=== PATIENT | male | born 1940 | race Caucasian/White ===

== ENCOUNTER 2019-06-10 09:49 | Emergency (ER) | payer MEDICARE, OTHER, BC ==
--- NOTE | 2019-06-10 11:46 | CT ---
Head CT Technique: Multiple axial sections through the brain were obtained. Intravenous contrast was not utilized. Comparison: No prior intracranial imaging. Findings: Ventricles along with basal cisterns and sulci over the convexities are within normal limits for the patient's age. Diminished density is noted within portions of the periventricular white matter compatible with small vessel ischemic demyelination change. No other abnormal parenchymal densities are seen. No evidence of intracranial hemorrhage. No midline shift or mass effect is seen. Bone window settings were reviewed which shows no acute calvarial abnormality. Mastoid sinuses are clear. Visualized paranasal sinuses are clear. Impression: 1. Mild senescent change as noted above. 2. No acute intracranial abnormality is appreciated. Diagnostic code #2 This report was dictated in [place] Standard Time
--- NOTE | 2019-06-10 12:41 | EDM.PDOC ---
ED HPI GENERAL MEDICAL PROBLEM - General Chief Complaint: General Stated Complaint: DOUBLE VISION X 4 DAYS Time Seen by Provider: 06/10/19 10:59 Source of Information: Reports: Patient History Limitations: Reports: No Limitations - History of Present Illness INITIAL COMMENTS - FREE TEXT/NARRATIVE: The patient presents with double vision he had this weekend. This started on Monday and then Monday. It was not all the time. He got it when driving on Monday. He has no headache, numbness, weakness, blurred vision, chest pain, shortness of breath, nausea or vomiting. Onset: Gradual Duration: Day(s): Severity: Mild Improves with: Reports: None Worsens with: Reports: None Associated Symptoms: Reports: No Other Symptoms - Related Data Allergies Allergy/AdvReac Type Severity Reaction Status Date / Time No Known Allergies Allergy Verified 06/10/19 10:20 Home Meds: Home Meds Aspirin [Ecotrin EC] 81 mg PO DAILY 06/10/19 [History] Cinnamon Bark [Cinnamon] 1,000 mg PO DAILY 06/10/19 [History] Doxazosin Mesylate [Cardura XL] 4 mg PO DAILY 06/10/19 [History] Lisinopril [Zestril] 40 mg PO DAILY 06/10/19 [History] Losartan [Cozaar] 50 mg PO DAILY 06/10/19 [History] Multivitamin with Minerals [Hair, Skin and Nails] 1 tab PO DAILY 06/10/19 [ History] Oxybutynin 5 mg PO DAILY 06/10/19 [History] Potassium Chloride [K-Tab] 10 meq PO BID 06/10/19 [History] Simvastatin 40 mg PO BEDTIME 06/10/19 [History] amLODIPine [Norvasc] 10 mg PO DAILY 06/10/19 [History] glyBURIDE [Glyburide] 2.5 mg PO BEDTIME 06/10/19 [History] hydroCHLOROthiazide [Hydrochlorothiazide] 25 mg PO DAILY 06/10/19 [History] metFORMIN [Glucophage] 500 mg PO BIDMEALS 06/10/19 [History] Past Medical History HEENT History: Reports: Impaired Vision Cardiovascular History: Reports: Hypertension Oncologic (Cancer) History: Reports: Other (See Below) Other Oncologic History: cancer of the tounge - Past Surgical History HEENT Surgical History: Reports: Cataract Surgery, Tonsillectomy GI Surgical History: Reports: Appendectomy Social & Family History - Tobacco Use Smoking Status *Q: Never Smoker - Caffeine Use Caffeine Use: Reports: None - Recreational Drug Use Recreational Drug Use: No ED ROS GENERAL - Review of Systems Review Of Systems: See Below Constitutional: Reports: No Symptoms HEENT: Reports: Other (Double vision) Respiratory: Reports: No Symptoms Cardiovascular: Reports: No Symptoms Endocrine: Reports: No Symptoms GI/Abdominal: Reports: No Symptoms : Reports: No Symptoms Musculoskeletal: Reports: No Symptoms ED EXAM, GENERAL - Physical Exam Exam: See Below Exam Limited By: No Limitations General Appearance: Alert, No Apparent Distress Eye Exam: Bilateral Eye: EOMI, PERRL Ears: Normal External Exam Nose: Normal Inspection Head: Atraumatic, Normocephalic Neck: Normal Inspection Respiratory/Chest: No Respiratory Distress, Lungs Clear, Normal Breath Sounds Cardiovascular: Regular Rate, Rhythm, No Edema, No Murmur GI/Abdominal: Soft, Non-Tender, No Organomegaly, No Mass Back Exam: Normal Inspection EKG INTERPRETATION EKG Date: 06/10/19 Time: 11:15 Rhythm: Other (sinus bradycardia) Rate (Beats/Min): 55 Saline: Normal P-Wave: Present QRS: Normal ST-T: Normal QT: Normal Course - Vital Signs Last Recorded V/S: Last Vital Signs Temp 97.6 F 06/10/19 09:56 Pulse 61 06/10/19 09:56 Resp 18 06/10/19 09:56 BP 160/81 H 06/10/19 09:56 Pulse Ox 94 L 06/10/19 09:56 - Orders/Labs/Meds Orders: Active Orders 24 hr Category Date Time Status Cardiac Monitoring [RC] . DIRECTED Care 06/10/19 11:10 Active EKG Documentation Completion [RC] STAT Care 06/10/19 11:11 Active Labs: Laboratory Tests 06/10/19 06/10/19 Range/Units 11:43 11:43 WBC 8.02 (4.23-9.07) K/mm3 RBC 4.87 (4.63-6.08) M/mm3 Hgb 14.3 (13.7-17.5) gm/dl Hct 42.1 (40.1-51.0) % MCV 86.4 (79.0-92.2) fl MCH 29.4 (25.7-32.2) pg MCHC 34.0 (32.2-35.5) g/dl RDW Std Deviation 41.1 (35.1-43.9) fL Plt Count 206 (163-337) K/mm3 MPV 10.3 (9.4-12.3) fl Neut % (Auto) 64.9 (34.0-67.9) % Lymph % (Auto) 19.3 L (21.8-53.1) % [place] % (Auto) 7.6 (5.3-12.2) % Eos % (Auto) 7.1 H (0.8-7.0) Baso % (Auto) 1.0 (0.1-1.2) % Neut # (Auto) 5.20 (1.78-5.38) K/mm3 Lymph # (Auto) 1.55 (1.32-3.57) K/mm3 [place] # (Auto) 0.61 (0.30-0.82) K/mm3 Eos # (Auto) 0.57 H (0.04-0.54) K/mm3 Baso # (Auto) 0.08 (0.01-0.08) K/mm3 Sodium 141 (136-145) mEq/L Potassium 3.4 L (3.5-5.1) mEq/L Chloride 103 (98-107) mEq/L Carbon Dioxide 27 (21-32) mEq/L Anion Gap 14.4 (5-15) BUN 18 (7-18) mg/dL Creatinine 1.1 (0.7-1.3) mg/dL Est Cr Clr Drug Dosing 49.14 mL/min Estimated GFR (MDRD) > 60 (>60) mL/min BUN/Creatinine Ratio 16.4 (14-18) Glucose 118 H (83-115) mg/dL Calcium 8.9 (8.5-10.1) mg/dL Total Bilirubin 0.6 (0.2-1.0) mg/dL AST 18 (15-37) U/L ALT 29 (16-63) U/L Alkaline Phosphatase 55 (46-116) U/L Troponin I < 0.017 (0.00-0.056) ng/mL Total Protein 6.9 (6.4-8.2) g/dl Albumin 3.4 (3.4-5.0) g/dl Globulin 3.5 gm/dL Albumin/Globulin Ratio 1.0 (1-2) - Re-Assessments/Exams Free Text/Narrative Re-Assessment/Exam: 06/10/19 12:39 I ordered an IV saline lock, EKG, labs and a CT of his head. His EKG shows a sinus bradycardia without changes. His CT looks good. His CBC and CMP look good. Departure - Departure Time of Disposition: 12:45 Disposition: Home, Self-Care 01 Condition: Good Clinical Impression: Double vision - Discharge Information *PRESCRIPTION DRUG MONITORING PROGRAM REVIEWED*: Not Applicable *COPY OF PRESCRIPTION DRUG MONITORING REPORT IN PATIENT CLAIR: Not Applicable Referrals: Becca Wray MD [Primary Care Provider] - 1 Week Additional Instructions: Follow up with your doctor within a week. See your checker stocker for a dilated eye exam. Please return if you are worse. Sepsis Event Note - Evaluation Sepsis Screening Result: No Definite Risk - Focused Exam Vital Signs: Vital Signs Temp Pulse Resp BP Pulse Ox 06/10/19 09:56 97.6 F 61 18 160/81 H 94 L Date Exam was Performed: 06/10/19 Time Exam was Performed: 12:34 - My Orders Last 24 Hours: My Active Orders 06/10/19 11:10 Cardiac Monitoring [RC] . DIRECTED 06/10/19 11:11 EKG Documentation Completion [RC] STAT - Assessment/Plan Last 24 Hours: My Active Orders 06/10/19 11:10 Cardiac Monitoring [RC] . DIRECTED 06/10/19 11:11 EKG Documentation Completion [RC] STAT
== END 2019-06-10 12:54 | disposition home or self-care (01) ==
LOC: JD.ED 09:49
DX: H53.2 Diplopia (principal); I10 Essential (primary) hypertension; Z79.899 Other long term (current) drug therapy; Z79.84 Long term (current) use of oral hypoglycemic drugs; Z79.82 Long term (current) use of aspirin
CPT/HCPCS: 36415; 70450; 70450-26; 80053; 84484; 85025; 93005; 93010; 99283; 99285-25

== ENCOUNTER 2021-01-07 17:23 | Inpatient (IN) | payer MEDICARE, OTHER ==
[2021-01-07] MEDS ORDERED: Sodium Chloride 0.9% 10 ML Syringe FLUSH PRN (18:13)
[2021-01-07] MEDS ORDERED: Dexamethasone 4 MG Tab PO ONE (18:26)
--- NOTE | 2021-01-07 18:33 | EDM.PDOC ---
ED HPI GENERAL MEDICAL PROBLEM - General Chief Complaint: Respiratory Problem Stated Complaint: COVID POS Time Seen by Provider: 01/07/21 18:13 Source of Information: Reports: Patient, RN Notes Reviewed History Limitations: Reports: No Limitations - History of Present Illness INITIAL COMMENTS - FREE TEXT/NARRATIVE: Patient is an 80-year-old male presenting to the emergency department with complaints of worsening of Covid symptoms since. He reports that he became ill over the weekend. Complains of cough and shortness of breath. He denies fever, chills, nausea, vomiting, or diarrhea. He has had no chest pain. He did receive both doses of the Pfizer COVID vaccine. Patient has past medical history significant for hypertension. Denies any chronic lung conditions. - Related Data Allergies Allergy/AdvReac Type Severity Reaction Status Date / Time No Known Allergies Allergy Verified 01/07/21 21:46 Home Meds: Home Meds Aspirin [Ecotrin EC] 81 mg PO DAILY 06/10/19 [History] Cinnamon Bark [Cinnamon] 1,000 mg PO DAILY 06/10/19 [History] Doxazosin Mesylate [Cardura XL] 8 mg PO DAILY 06/10/19 [History] Losartan [Cozaar] 100 mg PO DAILY 06/10/19 [History] Multivitamin with Minerals [Hair, Skin and Nails] 1 tab PO DAILY 06/10/19 [History] Oxybutynin 10 mg PO DAILY 06/10/19 [History] Potassium Chloride [K-Tab] 20 meq PO BID 06/10/19 [History] amLODIPine [Norvasc] 10 mg PO DAILY 06/10/19 [History] glyBURIDE [Glyburide] 10 mg PO BID 06/10/19 [History] hydroCHLOROthiazide [Hydrochlorothiazide] 37.5 mg PO DAILY 06/10/19 [History] metFORMIN [Glucophage] 1,000 mg PO BIDMEALS 06/10/19 [History] Tamsulosin HCl 0.4 mg PO DAILY 01/07/21 [History] atenoloL [Atenolol] 50 mg PO DAILY 01/07/21 [History] Past Medical History HEENT History: Reports: Impaired Vision Cardiovascular History: Reports: Hypertension Oncologic (Cancer) History: Reports: Other (See Below) Other Oncologic History: cancer of the tounge - Infectious Disease History Infectious Disease History: Reports: Novel Coronavirus - Past Surgical History HEENT Surgical History: Reports: Cataract Surgery, Tonsillectomy GI Surgical History: Reports: Appendectomy Social & Family History - Tobacco Use Tobacco Use Status *Q: Never Tobacco User Second Hand Smoke Exposure: No - Caffeine Use Caffeine Use: Reports: None - Recreational Drug Use Recreational Drug Use: No ED ROS GENERAL - Review of Systems Review Of Systems: Comprehensive ROS is negative, except as noted in HPI. ED EXAM, GENERAL - Physical Exam Exam: See Below Exam Limited By: No Limitations General Appearance: Alert, Mild Distress Respiratory/Chest: No Accessory Muscle Use, Chest Non-Tender, Other (Decreased breath sounds throughout the posterior bilateral lung hernandez. Coarse crackles audible to bilateral bases.) Cardiovascular: Normal Peripheral Pulses, Regular Rate, Rhythm, No Edema, No Gallop, No JVD, No Murmur, No Rub GI/Abdominal: Normal Bowel Sounds, Soft, Non-Tender, No Organomegaly, No Distention, No Abnormal Bruit, No Mass Neurological: Alert, Confused (Mildly) Psychiatric: Normal Affect, Normal Mood Skin Exam: Warm, Dry, Intact, Normal Color, No Rash #1 Interpretation EKG Date: 01/07/21 Time: 18:32 Rhythm: NSR Rate (Beats/Min): 77 [place]: LAD-Left [place] Deviation P-Wave: Present QRS: Normal ST-T: Normal QT: Normal Course - Vital Signs Last Recorded V/S: Last Vital Signs Temp 98.5 F 01/07/21 18:09 Pulse 77 01/07/21 18:09 Resp 26 H 01/07/21 18:09 BP 126/70 01/07/21 18:09 Pulse Ox 87 L 01/07/21 22:31 - Orders/Labs/Meds Orders: Active Orders 24 hr Category Date Time Status Oxygen Therapy [RC] ASDIRECTED Care 01/07/21 18:15 Active Peripheral IV Care [RC] . DIRECTED Care 01/07/21 18:14 Active Chest 1V Frontal [CR] Stat Exams 01/07/21 18:13 Taken Sodium Chloride 0.9% [Saline Flush] Med 01/07/21 18:13 Active 10 ml FLUSH ASDIRECTED PRN Peripheral IV Insertion Adult [OM.PC] Stat Oth 01/07/21 18:13 Ordered Medication Orders Acetaminophen (Acetaminophen 325 Mg Tab) 650 mg PO Q4H PRN PRN Reason: Pain (Mild 1-3)/fever Albuterol/Ipratropium (Albuterol/Ipratropium 3.0-0.5 Mg/3 Ml Neb Soln) 3 ml NEB Q4H PRN PRN Reason: Shortness Of Breath/wheezing Dexamethasone (Dexamethasone 4 Mg Tab) 6 mg PO DAILY [facility] Stop: 01/16/21 09:01 Enoxaparin Sodium (Enoxaparin 30 Mg/0.3 Ml Syringe) 30 mg SUBCUT DAILY [facility] Sodium Chloride (Normal Saline) 1,000 mls @ 100 mls/hr IV ASDIRECTED DESEAN Stop: 01/08/21 07:29 Insulin Human Lispro (Insulin Lispro 100 Unit/Ml 10 Ml Vial) 0 unit SUBCUT QIDACANDBED [facility]; Protocol Ondansetron HCl (Ondansetron 4 Mg/2 Ml Sdv) 4 mg IV Q6H PRN PRN Reason: Nausea/Vomiting Sodium Chloride (Sodium Chloride 0.9% 10 Ml Syringe) 10 ml FLUSH ASDIRECTED PRN PRN Reason: Keep Vein Open Last Admin: 01/07/21 18:42 Dose: 10 ml Documented by: UMAIR Labs: Laboratory Tests 01/07/21 01/07/21 01/07/21 Range/Units 18:20 18:40 18:40 WBC 6.09 (4.23-9.07) K/mm3 RBC 4.50 L (4.63-6.08) M/mm3 Hgb 13.0 L (13.7-17.5) gm/dl Hct 39.4 L (40.1-51.0) % MCV 87.6 (79.0-92.2) fl MCH 28.9 (25.7-32.2) pg MCHC 33.0 (32.2-35.5) g/dl RDW Std Deviation 43.4 (35.1-43.9) fL Plt Count 158 L (163-337) K/mm3 MPV 10.6 (9.4-12.3) fl Neut % (Auto) 89.2 H (34.0-67.9) % Lymph % (Auto) 6.9 L (21.8-53.1) % [place] % (Auto) 3.4 L (5.3-12.2) % Eos % (Auto) 0 L (0.8-7.0) Baso % (Auto) 0.2 (0.1-1.2) % Neut # (Auto) 5.43 H (1.78-5.38) K/mm3 Lymph # (Auto) 0.42 L (1.32-3.57) K/mm3 [place] # (Auto) 0.21 L (0.30-0.82) K/mm3 Eos # (Auto) 0.00 L (0.04-0.54) K/mm3 Baso # (Auto) 0.01 (0.01-0.08) K/mm3 D-Dimer, Quantitative 1.24 H (0.19-0.50) mg/L ABG pH 7.43 (7.35-7.45) ABG pCO2 29.3 L (35.0-45.0) mmHg ABG pO2 45.0 L (80.0-100.0) mmHg ABG HCO3 19.1 L (22.0-26.0) meq/L ABG O2 Saturation 78.2 L (96.0-97.0) % ABG Base Excess -3.6 L (-2-2.0) Oracio Test Positive O2 Delivery Device Room air Sodium (136-145) mEq/L Potassium (3.5-5.1) mEq/L Chloride (98-107) mEq/L Carbon Dioxide (21-32) mEq/L Anion Gap (5-15) BUN (7-18) mg/dL Creatinine (0.7-1.3) mg/dL Est Cr Clr Drug Dosing mL/min Estimated GFR (MDRD) (>60) mL/min BUN/Creatinine Ratio (14-18) Glucose (70-99) mg/dL Calcium (8.5-10.1) mg/dL Total Bilirubin (0.2-1.0) mg/dL AST (15-37) U/L ALT (16-63) U/L Alkaline Phosphatase (46-116) U/L Troponin I (0.00-0.056) ng/mL C-Reactive Protein (<1.0) mg/dL NT-Pro-B Natriuret Pep (0-450) pg/mL Total Protein (6.4-8.2) g/dl Albumin (3.4-5.0) g/dl Globulin gm/dL Albumin/Globulin Ratio (1-2) 01/07/21 01/07/21 Range/Units 18:40 18:40 WBC (4.23-9.07) K/mm3 RBC (4.63-6.08) M/mm3 Hgb (13.7-17.5) gm/dl Hct (40.1-51.0) % MCV (79.0-92.2) fl MCH (25.7-32.2) pg MCHC (32.2-35.5) g/dl RDW Std Deviation (35.1-43.9) fL Plt Count (163-337) K/mm3 MPV (9.4-12.3) fl Neut % (Auto) (34.0-67.9) % Lymph % (Auto) (21.8-53.1) % [place] % (Auto) (5.3-12.2) % Eos % (Auto) (0.8-7.0) Baso % (Auto) (0.1-1.2) % Neut # (Auto) (1.78-5.38) K/mm3 Lymph # (Auto) (1.32-3.57) K/mm3 [place] # (Auto) (0.30-0.82) K/mm3 Eos # (Auto) (0.04-0.54) K/mm3 Baso # (Auto) (0.01-0.08) K/mm3 D-Dimer, Quantitative (0.19-0.50) mg/L ABG pH (7.35-7.45) ABG pCO2 (35.0-45.0) mmHg ABG pO2 (80.0-100.0) mmHg ABG HCO3 (22.0-26.0) meq/L ABG O2 Saturation (96.0-97.0) % ABG Base Excess (-2-2.0) Oracio Test O2 Delivery Device Sodium 135 L (136-145) mEq/L Potassium 4.3 (3.5-5.1) mEq/L Chloride 98 (98-107) mEq/L Carbon Dioxide 25 (21-32) mEq/L Anion Gap 16.3 H (5-15) BUN 35 H (7-18) mg/dL Creatinine 2.1 H (0.7-1.3) mg/dL Est Cr Clr Drug Dosing 26.69 mL/min Estimated GFR (MDRD) 30 (>60) mL/min BUN/Creatinine Ratio 16.7 (14-18) Glucose 202 H (70-99) mg/dL Calcium 7.6 L (8.5-10.1) mg/dL Total Bilirubin 0.4 (0.2-1.0) mg/dL AST 50 H (15-37) U/L ALT 34 (16-63) U/L Alkaline Phosphatase 45 L (46-116) U/L Troponin I 0.056 (0.00-0.056) ng/mL C-Reactive Protein 5.1 H* (<1.0) mg/dL NT-Pro-B Natriuret Pep 863 H (0-450) pg/mL Total Protein 6.5 (6.4-8.2) g/dl Albumin 2.6 L (3.4-5.0) g/dl Globulin 3.9 gm/dL Albumin/Globulin Ratio 0.7 L (1-2) Meds: Medications Generic Name Dose Route Start Last Admin Trade Name Freq PRN Reason Stop Dose Admin Acetaminophen 650 mg 01/07/21 21:25 Acetaminophen 325 Mg Tab PO Q4H PRN Pain (Mild 1-3)/fever Albuterol/Ipratropium 3 ml 01/07/21 21:25 Albuterol/Ipratropium 3.0-0.5 Mg/3 Ml Neb Soln NEB Q4H PRN Shortness Of Breath/wheezing Dexamethasone 6 mg 01/08/21 09:00 Dexamethasone 4 Mg Tab PO 01/16/21 09:01 DAILY [facility] Enoxaparin Sodium 30 mg 01/08/21 09:00 Enoxaparin 30 Mg/0.3 Ml Syringe SUBCUT DAILY [facility] Sodium Chloride 1,000 mls @ 100 mls/hr 01/07/21 21:30 Normal Saline IV 01/08/21 07:29 ASDIRECTED [facility] Insulin Human Lispro 0 unit 01/07/21 22:00 Insulin Lispro 100 Unit/Ml 10 Ml Vial SUBCUT QIDACANDBED [facility] Protocol Ondansetron HCl 4 mg 01/07/21 21:25 Ondansetron 4 Mg/2 Ml Sdv IV Q6H PRN Nausea/Vomiting Sodium Chloride 10 ml 01/07/21 18:13 01/07/21 18:42 Sodium Chloride 0.9% 10 Ml Syringe FLUSH 10 ml ASDIRECTED PRN Administration Keep Vein Open Discontinued Medications Generic Name Dose Route Start Last Admin Trade Name Rahul PRN Reason Stop Dose Admin Dexamethasone 6 mg 01/07/21 18:26 01/07/21 18:42 Dexamethasone 4 Mg Tab PO 01/07/21 18:27 6 mg ONETIME ONE Administration - Re-Assessments/Exams Free Text/Narrative Re-Assessment/Exam: Patient is an 80-year-old male presenting to the emergency department with complaints of cough and shortness of breath with a known diagnosis of Covid. Became ill last weekend which would put him 5 or 6 days into his illness. Complains only of cough and shortness of breath. On exam, he has decreased breath sounds throughout his posterior lung hernandez. There is coarse crackles to the bilateral bases. Oxygen saturation was initially 72% on room air. Nursing staff was able to have an ABG collected prior to being placed on oxygen. He is currently on 6 L of oxygen by nasal cannula saturating in the upper 80s. I have ordered for high flow oxygen to be started. I have also ordered blood work, EKG, chest x-ray. 01/07/21 18:45 ABG completed prior to oxygen being applied shows a normal pH of 7.43, PCO2 29.3, PO2 45, HCO3 19.1, oxygen saturation 78.2%. Patient is currently on high flow oxygen 40 L at 80% FiO2. He is saturating in the low 90s. 01/07/21 20:14 Hematology significant for hemoglobin 13.0, D-dimer 1.24, sodium 135, anion gap 16.3, BUN 35, creatinine 2.1, CRP 5.1, proBNP 863. Troponin is the high end of normal at 0.56. EKG shows no evidence of ischemia. Chest x-ray shows diffuse bilateral Covid pneumonia. Patient is oxygenating in the low 90s on high flow at 40 L with 80% FiO2. Case was discussed with hospitalist Dr. Beck. He feels the patient would best served in an ICU bed and unfortunately we do not have an ICU bed available. I did call around the [facility] looking for ICU beds and none were found. I called the [facility] transfer line and they indicated that there are no ICU beds available in the [facility]. Spoke with [facility] and unfortunately they are unable to accept the patient. Dr. Beck did agree to accept the patient onto the medical surgical floor. He will be admitted under his service. Departure - Departure Time of Disposition: 20:14 Disposition: Admitted As Inpatient 65 Condition: Fair Clinical Impression: Pneumonia due to COVID-19 virus - Discharge Information Sepsis Event Note (ED) - Evaluation Sepsis Screening Result: No Definite Risk - Focused Exam Vital Signs: Vital Signs Temp Pulse Resp BP Pulse Ox 01/07/21 18:09 98.5 F 77 26 H 126/70 72 L - My Orders Last 24 Hours: My Active Orders 01/07/21 18:13 Chest 1V Frontal [CR] Stat Sodium Chloride 0.9% [Saline Flush] 10 ml FLUSH ASDIRECTED PRN Peripheral IV Insertion Adult [OM.PC] Stat 01/07/21 18:14 Peripheral IV Care [RC] . DIRECTED 01/07/21 18:15 Oxygen Therapy [RC] ASDIRECTED - Assessment/Plan Last 24 Hours: My Active Orders 01/07/21 18:13 Chest 1V Frontal [CR] Stat Sodium Chloride 0.9% [Saline Flush] 10 ml FLUSH ASDIRECTED PRN Peripheral IV Insertion Adult [OM.PC] Stat 01/07/21 18:14 Peripheral IV Care [RC] . DIRECTED 01/07/21 18:15 Oxygen Therapy [RC] ASDIRECTED
[2021-01-07] MEDS ORDERED: Acetaminophen 325 MG Tab PO PRN (21:25)
[2021-01-07] MEDS ORDERED: Ondansetron 4 MG/2 ML SDV IV PRN (21:25)
[2021-01-07] MEDS ORDERED: Sodium Chloride 0.9% 1,000 ML IV SCH (21:30)
[2021-01-07] MEDS: Insulin Lispro 100 UNIT/ML 10 ML Vial SUBCUT SCH (23:40)
[2021-01-08] MEDS: Albuterol/Ipratropium 3.0-0.5 MG/3 ML Neb Soln NEB PRN ×3 (05:55→15:36)
--- NOTE | 2021-01-08 06:53 | PCM.HP.2 ---
H&P History of Present Illness - General Date of Service: 01/07/21 Admit Problem/Dx: Admission Diagnosis/Problem Admission Diagnosis/Problem Covid-19 Pneumonia - History of Present Illness Initial Comments - Free Text/Narative: 80-year-old male who is a poor historian presenting to the emergency department with worsening shortness of breath and Covid-like symptoms. Patient reportedly did get vaccinated with both doses of Pfizer vaccine. He states he became ill over the weekend with cough and shortness of breath. Denies any fever, chills, nausea, vomiting, or diarrhea. He was difficult to interview secondary to him being hard of hearing and telemetry random stories about his past. Most of the history was obtained through the emergency department notes. No family member present to discuss his past medical history or current symptoms. - Related Data Allergies/Adverse Reactions: Allergies Allergy/AdvReac Type Severity Reaction Status Date / Time No Known Allergies Allergy Verified 01/07/21 21:46 Home Medications: Home Meds Aspirin [Ecotrin EC] 81 mg PO DAILY 06/10/19 [History] Cinnamon Bark [Cinnamon] 1,000 mg PO DAILY 06/10/19 [History] Doxazosin Mesylate [Cardura XL] 8 mg PO DAILY 06/10/19 [History] Losartan [Cozaar] 100 mg PO DAILY 06/10/19 [History] Multivitamin with Minerals [Hair, Skin and Nails] 1 tab PO DAILY 06/10/19 [History] Oxybutynin 10 mg PO DAILY 06/10/19 [History] Potassium Chloride [K-Tab] 20 meq PO BID 06/10/19 [History] amLODIPine [Norvasc] 10 mg PO DAILY 06/10/19 [History] glyBURIDE [Glyburide] 10 mg PO BID 06/10/19 [History] hydroCHLOROthiazide [Hydrochlorothiazide] 37.5 mg PO DAILY 06/10/19 [History] metFORMIN [Glucophage] 1,000 mg PO BIDMEALS 06/10/19 [History] Tamsulosin HCl 0.4 mg PO DAILY 01/07/21 [History] atenoloL [Atenolol] 50 mg PO DAILY 01/07/21 [History] Past Medical History HEENT History: Reports: Impaired Vision Cardiovascular History: Reports: Hypertension Respiratory History: Reports: Other (See Below) Other Respiratory History: "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 Endocrine/Metabolic History: Reports: Diabetes, Type II Oncologic (Cancer) History: Reports: Other (See Below) Other Oncologic History: cancer of the tongue - Infectious Disease History Infectious Disease History: Reports: MRSA, Novel Coronavirus Other Infectious Disease History: MRSA to buttock according to our MDRO list. - Past Surgical History HEENT Surgical History: Reports: Cataract Surgery, Tonsillectomy GI Surgical History: Reports: Appendectomy Social & Family History - Tobacco Use Tobacco Use Status *Q: Never Tobacco User Second Hand Smoke Exposure: No - Caffeine Use Caffeine Use: Reports: Coffee Other Caffeine Use: occassional - Recreational Drug Use Recreational Drug Use: No H&P Review of Systems - Review of Systems: Review Of Systems: Unable To Obtain Reason Not Obtained: Patient is hard of hearing, has tangent stories, and did not answ Free Text/Narrative: Hard of hearing, mild confusion, tangential storytelling Exam - Exam Exam: See Below - Vital Signs Vital Signs: Last Vital Signs Temp 98.2 F 01/08/21 03:36 Pulse 63 01/08/21 03:36 Resp 28 H 01/08/21 03:36 BP 126/58 L 01/08/21 03:36 Pulse Ox 87 L 01/08/21 05:55 Weight: 211 lb 3.2 oz - Exam Quality Assessment: Supplemental Oxygen (High flow nasal cannula) General: Alert. No: Oriented (Did not give answer to place or time) HEENT: Conjunctiva Clear, Mucosa Moist & Antler, Normal Nasal Septum. No: Hearing Intact Neck: Supple, Trachea Midline, 2 Lungs: Crackles ( throughout both lung hernandez). No: Normal Respiratory Effort (Increased respiratory rate and effort) Cardiovascular: Regular Rate, Regular Rhythm GI/Abdominal Exam: Normal Bowel Sounds, Soft, Non-Tender, No Organomegaly, No Distention (Obese) Extremities: Normal Inspection, Normal Range of Motion, Non-Tender, Normal Capillary Refill, Pedal Edema (1+) Skin: Warm, Dry, Intact Neuro Extensive - Mental Status: Alert, Disorientation to Place, Disorientation to Time. No: Oriented x3, Normal Cognition (Tangential thinking) Psychiatric: Alert, Normal Affect, Normal Mood - Patient Data Lab Results Last 24 hrs: Laboratory Results - last 24 hr 01/07/21 01/07/21 01/07/21 Range/Units 18:20 18:40 18:40 WBC 6.09 (4.23-9.07) K/mm3 RBC 4.50 L (4.63-6.08) M/mm3 Hgb 13.0 L (13.7-17.5) gm/dl Hct 39.4 L (40.1-51.0) % MCV 87.6 (79.0-92.2) fl MCH 28.9 (25.7-32.2) pg MCHC 33.0 (32.2-35.5) g/dl RDW Std Deviation 43.4 (35.1-43.9) fL Plt Count 158 L (163-337) K/mm3 MPV 10.6 (9.4-12.3) fl Neut % (Auto) 89.2 H (34.0-67.9) % Lymph % (Auto) 6.9 L (21.8-53.1) % Bath % (Auto) 3.4 L (5.3-12.2) % Eos % (Auto) 0 L (0.8-7.0) Baso % (Auto) 0.2 (0.1-1.2) % Neut # (Auto) 5.43 H (1.78-5.38) K/mm3 Lymph # (Auto) 0.42 L (1.32-3.57) K/mm3 Bath # (Auto) 0.21 L (0.30-0.82) K/mm3 Eos # (Auto) 0.00 L (0.04-0.54) K/mm3 Baso # (Auto) 0.01 (0.01-0.08) K/mm3 D-Dimer, Quantitative 1.24 H (0.19-0.50) mg/L ABG pH 7.43 (7.35-7.45) ABG pCO2 29.3 L (35.0-45.0) mmHg ABG pO2 45.0 L (80.0-100.0) mmHg ABG HCO3 19.1 L (22.0-26.0) meq/L ABG O2 Saturation 78.2 L (96.0-97.0) % ABG Base Excess -3.6 L (-2-2.0) Oracio Test Positive O2 Delivery Device Room air Sodium (136-145) mEq/L Potassium (3.5-5.1) mEq/L Chloride (98-107) mEq/L Carbon Dioxide (21-32) mEq/L Anion Gap (5-15) BUN (7-18) mg/dL Creatinine (0.7-1.3) mg/dL Est Cr Clr Drug Dosing mL/min Estimated GFR (MDRD) (>60) mL/min BUN/Creatinine Ratio (14-18) Glucose (70-99) mg/dL POC Glucose (70-99) mg/dL Calcium (8.5-10.1) mg/dL Total Bilirubin (0.2-1.0) mg/dL AST (15-37) U/L ALT (16-63) U/L Alkaline Phosphatase (46-116) U/L Troponin I (0.00-0.056) ng/mL C-Reactive Protein (<1.0) mg/dL NT-Pro-B Natriuret Pep (0-450) pg/mL Total Protein (6.4-8.2) g/dl Albumin (3.4-5.0) g/dl Globulin gm/dL Albumin/Globulin Ratio (1-2) 01/07/21 01/07/21 01/07/21 Range/Units 18:40 18:40 22:32 WBC (4.23-9.07) K/mm3 RBC (4.63-6.08) M/mm3 Hgb (13.7-17.5) gm/dl Hct (40.1-51.0) % MCV (79.0-92.2) fl MCH (25.7-32.2) pg MCHC (32.2-35.5) g/dl RDW Std Deviation (35.1-43.9) fL Plt Count (163-337) K/mm3 MPV (9.4-12.3) fl Neut % (Auto) (34.0-67.9) % Lymph % (Auto) (21.8-53.1) % Bath % (Auto) (5.3-12.2) % Eos % (Auto) (0.8-7.0) Baso % (Auto) (0.1-1.2) % Neut # (Auto) (1.78-5.38) K/mm3 Lymph # (Auto) (1.32-3.57) K/mm3 Bath # (Auto) (0.30-0.82) K/mm3 Eos # (Auto) (0.04-0.54) K/mm3 Baso # (Auto) (0.01-0.08) K/mm3 D-Dimer, Quantitative (0.19-0.50) mg/L ABG pH (7.35-7.45) ABG pCO2 (35.0-45.0) mmHg ABG pO2 (80.0-100.0) mmHg ABG HCO3 (22.0-26.0) meq/L ABG O2 Saturation (96.0-97.0) % ABG Base Excess (-2-2.0) Oracio Test O2 Delivery Device Sodium 135 L (136-145) mEq/L Potassium 4.3 (3.5-5.1) mEq/L Chloride 98 (98-107) mEq/L Carbon Dioxide 25 (21-32) mEq/L Anion Gap 16.3 H (5-15) BUN 35 H (7-18) mg/dL Creatinine 2.1 H (0.7-1.3) mg/dL Est Cr Clr Drug Dosing 26.69 mL/min Estimated GFR (MDRD) 30 (>60) mL/min BUN/Creatinine Ratio 16.7 (14-18) Glucose 202 H (70-99) mg/dL POC Glucose 152 H (70-99) mg/dL Calcium 7.6 L (8.5-10.1) mg/dL Total Bilirubin 0.4 (0.2-1.0) mg/dL AST 50 H (15-37) U/L ALT 34 (16-63) U/L Alkaline Phosphatase 45 L (46-116) U/L Troponin I 0.056 (0.00-0.056) ng/mL C-Reactive Protein 5.1 H* (<1.0) mg/dL NT-Pro-B Natriuret Pep 863 H (0-450) pg/mL Total Protein 6.5 (6.4-8.2) g/dl Albumin 2.6 L (3.4-5.0) g/dl Globulin 3.9 gm/dL Albumin/Globulin Ratio 0.7 L (1-2) Result Diagrams: 01/08/21 06:32 01/08/21 06:32 Sepsis Event Note - Evaluation Sepsis Screening Result: Sepsis Risk - Focused Exam Vital Signs: Vital Signs Temp Pulse Resp BP Pulse Ox Pulse Ox Pulse Ox 01/08/21 05:55 87 L 87 L 01/08/21 03:36 98.2 F 63 28 H 126/58 L 87 L 01/07/21 23:46 73 87 L 01/07/21 23:44 99.3 F 72 28 H 125/60 01/07/21 22:31 87 L 87 L 01/07/21 22:30 84 L 85 L 01/07/21 22:29 83 L 01/07/21 22:28 81 L 01/07/21 21:32 100.8 F H 71 24 H 156/99 H 90 L 01/07/21 21:08 91 L - Problem List (1) Diabetes mellitus type 2 in obese SNOMED Code(s): 99884744 ICD Code: E11.69 - TYPE 2 DIABETES MELLITUS WITH OTHER SPECIFIED COMPLICATION; E66.9 - OBESITY, UNSPECIFIED Status: Acute Current Visit: Yes (2) HTN (hypertension) SNOMED Code(s): 35195873 ICD Code: I10 - ESSENTIAL (PRIMARY) HYPERTENSION Status: Acute Current Visit: Yes (3) Respiratory failure with hypoxia SNOMED Code(s): 86279824545851557 ICD Code: J96.91 - RESPIRATORY FAILURE, UNSPECIFIED WITH HYPOXIA Status: Acute Current Visit: Yes (4) Acute renal failure SNOMED Code(s): 71519521 ICD Code: N17.9 - ACUTE KIDNEY FAILURE, UNSPECIFIED Status: Acute Current Visit: Yes (5) Pneumonia due to COVID-19 virus SNOMED Code(s): 962949101019295015 ICD Code: U07.1 - COVID-19; J12.82 - PNEUMONIA DUE TO CORONAVIRUS DISEASE 2019 Status: Acute Current Visit: Yes Problem List Initiated/Reviewed/Updated: Yes Orders Last 24hrs: Active Orders 24 hr Category Date Time Status Patient Status [ADT] Routine ADT 01/07/21 20:49 Active Blood Glucose Check, Bedside [RC] QIDACANDBED Care 01/07/21 21:29 Active Oxygen Therapy [RC] PRN Care 01/07/21 21:25 Active RT Aerosol Therapy [RC] ASDIRECTED Care 01/07/21 21:27 Active Up With Assistance [RC] QSHIFT Care 01/07/21 21:25 Active VTE/DVT Education [RC] DAILY Care 01/07/21 21:25 Active Vital Signs [RC] Q4HR Care 01/07/21 21:25 Active PT Evaluation and Treatment [CONS] Routine Cons 01/07/21 21:25 Active Regular Diet [DIET] Diet 01/08/21 Breakfast Active Chest 1V Frontal [CR] Stat Exams 01/07/21 18:13 Taken C-REACTIVE PROTEIN [CHEM] AM Lab 01/08/21 05:11 Ordered CBC WITH AUTO DIFF [HEME] AM Lab 01/08/21 05:11 Ordered CMP [COMPREHENSIVE METABOLIC PN,CMP] [CHEM] AM Lab 01/08/21 05:11 Ordered DD [D-DIMER QUANTITATIVE] [COAG] AM Lab 01/08/21 05:11 Ordered MAGNESIUM [CHEM] AM Lab 01/08/21 05:11 Ordered PHOSPHORUS [CHEM] AM Lab 01/08/21 05:11 Ordered PROCALCITONIN [REF] Routine Lab 01/07/21 18:40 Received Acetaminophen [TylenoL] Med 01/07/21 21:25 Active 650 mg PO Q4H PRN Albuterol/Ipratropium [DuoNeb 3.0-0.5 MG/3 ML] Med 01/07/21 21:25 Active 3 ml NEB Q4H PRN Enoxaparin [Lovenox] Med 01/08/21 09:00 Active 30 mg SUBCUT DAILY Insulin Lispro [HumaLOG] Med 01/07/21 22:00 Active See Protocol SUBCUT QIDACANDBED Ondansetron [Zofran] Med 01/07/21 21:25 Active 4 mg IV Q6H PRN Sodium Chloride 0.9% [Normal Saline] 1,000 ml Med 01/07/21 21:30 Active IV ASDIRECTED Sodium Chloride 0.9% [Saline Flush] Med 01/07/21 18:13 Active 10 ml FLUSH ASDIRECTED PRN dexAMETHasone Med 01/08/21 09:00 Active 6 mg PO DAILY Isolation [COMM] Stat Oth 01/07/21 21:25 Ordered Peripheral IV Insertion Adult [OM.PC] Stat Oth 01/07/21 18:13 Ordered Resuscitation Status Routine Resus Stat 01/07/21 21:25 Ordered Medication Orders Acetaminophen (Acetaminophen 325 Mg Tab) 650 mg PO Q4H PRN PRN Reason: Pain (Mild 1-3)/fever Albuterol/Ipratropium (Albuterol/Ipratropium 3.0-0.5 Mg/3 Ml Neb Soln) 3 ml NEB Q4H PRN PRN Reason: Shortness Of Breath/wheezing Last Admin: 01/08/21 05:55 Dose: 3 ml Documented by: OMAR Dexamethasone (Dexamethasone 4 Mg Tab) 6 mg PO DAILY [facility] Stop: 01/16/21 09:01 Enoxaparin Sodium (Enoxaparin 30 Mg/0.3 Ml Syringe) 30 mg SUBCUT DAILY [facility] Sodium Chloride (Normal Saline) 1,000 mls @ 100 mls/hr IV ASDIRECTED DESEAN Stop: 01/08/21 07:29 Last Admin: 01/07/21 22:48 Dose: 100 mls/hr Documented by: PERCY Insulin Human Lispro (Insulin Lispro 100 Unit/Ml 10 Ml Vial) 0 unit SUBCUT QI DACANDBED [facility]; Protocol Last Admin: 01/07/21 23:40 Dose: 2 units Documented by: PERCY Ondansetron HCl (Ondansetron 4 Mg/2 Ml Sdv) 4 mg IV Q6H PRN PRN Reason: Nausea/Vomiting Sodium Chloride (Sodium Chloride 0.9% 10 Ml Syringe) 10 ml FLUSH ASDIRECTED PRN PRN Reason: Keep Vein Open Last Admin: 01/07/21 18:42 Dose: 10 ml Documented by: UMAIR Assessment/Plan Comment:: 80-year-old male vaccinated with Pfizer vaccine presents in respiratory failure secondary to COVID-19 pneumonia COVID-19 pneumonia Respiratory failure with hypoxia * Patient was placed on high flow nasal cannula at 40 L in the emergency department. By the time he got to the medical floor he was already on 50 L. Saturations are in the upper 80s and 90s. * ABG show significant hypoxia with compensated respiratory alkalosis * CRP 5.1, albumin 2.6, D-dimer 1.24, WBC 6.09 * BNP 863. This is likely elevated partly due to renal failure and COVID-19. Also, he could have some degree of fluid overload based on the chest x-ray. May consider echocardiogram in the future. * Patient has overall very poor prognosis. * He request to be a full code. * Given dexamethasone, Rocephin, but remdesivir was held secondary to renal function in the emergency department * Chest x-ray shows bilateral infiltrates consistent with moderate Covid 19 pneumonia * EKG: Normal sinus rhythm, ventricular rate 77 bpm, left axis deviation. Acute renal failure * Creatinine 2.1 with GFR of 30 * Most recent creatinine on file is from June 2019 and it was 1.1 with a GFR of greater than 60. * He may have some underlying diabetic nephropathy Type 2 diabetes * Presenting blood sugar 202 * Unknown hemoglobin A1c * Home meds include glipizide and Metformin per chart notes Anemia of chronic disease * Normochromic, normocytic anemia likely secondary to chronic disease * Hemoglobin 13, hematocrit 39.4 * Platelets 158 Hypertension * Home med list includes amlodipine, hydrochlorothiazide, losartan, And Cardura BPH * Home meds include Cardura and Flomax Plan * Admit to medical floor in respiratory isolation * High flow nasal cannula to keep SPO2 above 87% * Transfer to ICU if any worsening condition * Continue dexamethasone 6 mg daily * Continue Rocephin for 5 days * Azithromycin 500 mg IV daily for 3 days * Start remdesivir when renal function improves * Normal saline at 100 mL/h for 1 L. Conservative fluid management is best for COVID-19 patients, but with his renal function significantly reduced and there are likely being a prerenal component we will give him 1 L of IV fluid and then recheck renal function * Follow labs closely * Protonix 20 mg IV twice daily for GI protection * Respiratory therapy, Acapella, I-S * Albuterol/Atrovent nebs every 6 hours as needed * Albuterol every 2 hours as needed * Encourage proning * Check hemoglobin A1c * Sliding scale insulin * Follow CBC, CMP, mag, Phos, CRP, D-dimer * Get procalcitonin * VTE prophylaxis with Lovenox * CODE STATUS: Full code. I explained to the patient he is a very high risk for intubation and mortality, but I am not sure how much he understands. - Mortality Measure Prognosis:: Poor (COVID-19 pneumonia with hypoxemia and respiratory failure in a 80-year-old with multiple core morbidities)
[2021-01-08] MEDS ORDERED: Insulin Lispro 100 UNIT/ML 10 ML Vial SUBCUT SCH (07:00)
--- NOTE | 2021-01-08 07:40 | CR ---
Chest: Portable view of the chest was obtained. Comparison: No prior chest imaging is available. Focal density is noted within the right upper lung. Lesser density is scattered within other portions of the chest. Heart size and mediastinum are within normal limits. Bony structures show nothing acute. Impression: 1. Findings suspicious for mild COVID pneumonia. Diagnostic code #3
[2021-01-08 07:55] LABS: HEMOGLOBIN A1C 6.6 %
[2021-01-08] MEDS: Insulin Lispro 100 UNIT/ML 10 ML Vial SUBCUT SCH ×5 (08:24→22:06)
[2021-01-08] MEDS: Tamsulosin 0.4 MG Cap.ER PO SCH (08:25)
[2021-01-08] MEDS: Aspirin 81 MG Tab.EC PO SCH (08:25)
[2021-01-08] MEDS: Dexamethasone 4 MG Tab PO SCH (08:25)
[2021-01-08] MEDS: Atenolol 50 MG Tab PO SCH (08:25)
[2021-01-08] MEDS ORDERED: Enoxaparin 30 MG/0.3 ML Syringe SUBCUT SCH (09:00)
--- NOTE | 2021-01-08 09:04 | PCM.PN ---
- General Info Date of Service: 01/08/21 Admission Dx/Problem (Free Text): Admission Diagnosis/Problem Admission Diagnosis/Problem Covid-19 Pneumonia Subjective Update: 80-year-old male with respiratory failure secondary to COVID-19 pneumonia had worse night last night being placed on high flow nasal cannula at 60 L and 95% FiO2 and a nonrebreather mask over that. Patient continued to have sats in the 80s. Patient was then transferred to the ICU and placed on BiPAP. Since on BiPAP he is doing better. Patient still is awake and alert. He is talkative and continues with his tangential stories. Functional Status: Reports: Pain Controlled - Review of Systems General: Reports: No Symptoms HEENT: Reports: No Symptoms Pulmonary: Reports: Shortness of Breath, Cough Cardiovascular: Reports: No Symptoms Gastrointestinal: Reports: No Symptoms Musculoskeletal: Reports: No Symptoms - Patient Data Vitals - Most Recent: Last Vital Signs Temp 98.2 F 01/08/21 08:00 Pulse 66 01/08/21 08:25 Resp 25 H 01/08/21 08:00 BP 131/77 01/08/21 08:25 Pulse Ox 91 L 01/08/21 08:00 Weight - Most Recent: 212 lb I&O - Last 24 Hours: Intake & Output 01/07/21 01/08/21 01/08/21 22:59 06:59 14:59 Intake Total 350 Output Total 600 Balance -250 Lab Results Last 24 Hours: Laboratory Results - last 24 hr 01/07/21 01/07/21 01/07/21 Range/Units 18:20 18:40 18:40 WBC 6.09 (4.23-9.07) K/mm3 RBC 4.50 L (4.63-6.08) M/mm3 Hgb 13.0 L (13.7-17.5) gm/dl Hct 39.4 L (40.1-51.0) % MCV 87.6 (79.0-92.2) fl MCH 28.9 (25.7-32.2) pg MCHC 33.0 (32.2-35.5) g/dl RDW Std Deviation 43.4 (35.1-43.9) fL Plt Count 158 L (163-337) K/mm3 MPV 10.6 (9.4-12.3) fl Neut % (Auto) 89.2 H (34.0-67.9) % Lymph % (Auto) 6.9 L (21.8-53.1) % Andrews % (Auto) 3.4 L (5.3-12.2) % Eos % (Auto) 0 L (0.8-7.0) Baso % (Auto) 0.2 (0.1-1.2) % Neut # (Auto) 5.43 H (1.78-5.38) K/mm3 Lymph # (Auto) 0.42 L (1.32-3.57) K/mm3 Andrews # (Auto) 0.21 L (0.30-0.82) K/mm3 Eos # (Auto) 0.00 L (0.04-0.54) K/mm3 Baso # (Auto) 0.01 (0.01-0.08) K/mm3 D-Dimer, Quantitative 1.24 H (0.19-0.50) mg/L ABG pH 7.43 (7.35-7.45) ABG pCO2 29.3 L (35.0-45.0) mmHg ABG pO2 45.0 L (80.0-100.0) mmHg ABG HCO3 19.1 L (22.0-26.0) meq/L ABG O2 Saturation 78.2 L (96.0-97.0) % ABG Base Excess -3.6 L (-2-2.0) Oracio Test Positive O2 Delivery Device Room air Sodium (136-145) mEq/L Potassium (3.5-5.1) mEq/L Chloride (98-107) mEq/L Carbon Dioxide (21-32) mEq/L Anion Gap (5-15) BUN (7-18) mg/dL Creatinine (0.7-1.3) mg/dL Est Cr Clr Drug Dosing mL/min Estimated GFR (MDRD) (>60) mL/min BUN/Creatinine Ratio (14-18) Glucose (70-99) mg/dL POC Glucose (70-99) mg/dL Hemoglobin A1c ( - 5.6) % Calcium (8.5-10.1) mg/dL Phosphorus (2.6-4.7) mg/dL Magnesium (1.8-2.4) mg/dL Total Bilirubin (0.2-1.0) mg/dL AST (15-37) U/L ALT (16-63) U/L Alkaline Phosphatase (46-116) U/L Troponin I (0.00-0.056) ng/mL C-Reactive Protein (<1.0) mg/dL NT-Pro-B Natriuret Pep (0-450) pg/mL Total Protein (6.4-8.2) g/dl Albumin (3.4-5.0) g/dl Globulin gm/dL Albumin/Globulin Ratio (1-2) 01/07/21 01/07/21 01/07/21 Range/Units 18:40 18:40 22:32 WBC (4.23-9.07) K/mm3 RBC (4.63-6.08) M/mm3 Hgb (13.7-17.5) gm/dl Hct (40.1-51.0) % MCV (79.0-92.2) fl MCH (25.7-32.2) pg MCHC (32.2-35.5) g/dl RDW Std Deviation (35.1-43.9) fL Plt Count (163-337) K/mm3 MPV (9.4-12.3) fl Neut % (Auto) (34.0-67.9) % Lymph % (Auto) (21.8-53.1) % Andrews % (Auto) (5.3-12.2) % Eos % (Auto) (0.8-7.0) Baso % (Auto) (0.1-1.2) % Neut # (Auto) (1.78-5.38) K/mm3 Lymph # (Auto) (1.32-3.57) K/mm3 Andrews # (Auto) (0.30-0.82) K/mm3 Eos # (Auto) (0.04-0.54) K/mm3 Baso # (Auto) (0.01-0.08) K/mm3 D-Dimer, Quantitative (0.19-0.50) mg/L ABG pH (7.35-7.45) ABG pCO2 (35.0-45.0) mmHg ABG pO2 (80.0-100.0) mmHg ABG HCO3 (22.0-26.0) meq/L ABG O2 Saturation (96.0-97.0) % ABG Base Excess (-2-2.0) Oracio Test O2 Delivery Device Sodium 135 L (136-145) mEq/L Potassium 4.3 (3.5-5.1) mEq/L Chloride 98 (98-107) mEq/L Carbon Dioxide 25 (21-32) mEq/L Anion Gap 16.3 H (5-15) BUN 35 H (7-18) mg/dL Creatinine 2.1 H (0.7-1.3) mg/dL Est Cr Clr Drug Dosing 26.69 mL/min Estimated GFR (MDRD) 30 (>60) mL/min BUN/Creatinine Ratio 16.7 (14-18) Glucose 202 H (70-99) mg/dL POC Glucose 152 H (70-99) mg/dL Hemoglobin A1c ( - 5.6) % Calcium 7.6 L (8.5-10.1) mg/dL Phosphorus (2.6-4.7) mg/dL Magnesium (1.8-2.4) mg/dL Total Bilirubin 0.4 (0.2-1.0) mg/dL AST 50 H (15-37) U/L ALT 34 (16-63) U/L Alkaline Phosphatase 45 L (46-116) U/L Troponin I 0.056 (0.00-0.056) ng/mL C-Reactive Protein 5.1 H* (<1.0) mg/dL NT-Pro-B Natriuret Pep 863 H (0-450) pg/mL Total Protein 6.5 (6.4-8.2) g/dl Albumin 2.6 L (3.4-5.0) g/dl Globulin 3.9 gm/dL Albumin/Globulin Ratio 0.7 L (1-2) 01/08/21 01/08/21 01/08/21 Range/Units 06:32 06:32 06:32 WBC 5.94 (4.23-9.07) K/mm3 RBC 4.53 L (4.63-6.08) M/mm3 Hgb 12.8 L (13.7-17.5) gm/dl Hct 39.3 L (40.1-51.0) % MCV 86.8 (79.0-92.2) fl MCH 28.3 (25.7-32.2) pg MCHC 32.6 (32.2-35.5) g/dl RDW Std Deviation 43.5 (35.1-43.9) fL Plt Count 158 L (163-337) K/mm3 MPV 11.3 (9.4-12.3) fl Neut % (Auto) 84.4 H (34.0-67.9) % Lymph % (Auto) 10.8 L (21.8-53.1) % Andrews % (Auto) 4.4 L (5.3-12.2) % Eos % (Auto) 0 L (0.8-7.0) Baso % (Auto) 0.2 (0.1-1.2) % Neut # (Auto) 5.02 (1.78-5.38) K/mm3 Lymph # (Auto) 0.64 L (1.32-3.57) K/mm3 Andrews # (Auto) 0.26 L (0.30-0.82) K/mm3 Eos # (Auto) 0.00 L (0.04-0.54) K/mm3 Baso # (Auto) 0.01 (0.01-0.08) K/mm3 D-Dimer, Quantitative 1.34 H (0.19-0.50) mg/L ABG pH (7.35-7.45) ABG pCO2 (35.0-45.0) mmHg ABG pO2 (80.0-100.0) mmHg ABG HCO3 (22.0-26.0) meq/L ABG O2 Saturation (96.0-97.0) % ABG Base Excess (-2-2.0) Oracio Test O2 Delivery Device Sodium 138 (136-145) mEq/L Potassium 3.3 L (3.5-5.1) mEq/L Chloride 102 (98-107) mEq/L Carbon Dioxide 27 (21-32) mEq/L Anion Gap 12.3 (5-15) BUN 33 H (7-18) mg/dL Creatinine 1.6 H (0.7-1.3) mg/dL Est Cr Clr Drug Dosing 33.85 mL/min Estimated GFR (MDRD) 42 (>60) mL/min BUN/Creatinine Ratio 20.6 H (14-18) Glucose 223 H (70-99) mg/dL POC Glucose (70-99) mg/dL Hemoglobin A1c ( - 5.6) % Calcium 7.4 L (8.5-10.1) mg/dL Phosphorus 4.8 H (2.6-4.7) mg/dL Magnesium 1.8 (1.8-2.4) mg/dL Total Bilirubin 0.4 (0.2-1.0) mg/dL AST 41 H (15-37) U/L ALT 31 (16-63) U/L Alkaline Phosphatase 41 L (46-116) U/L Troponin I (0.00-0.056) ng/mL C-Reactive Protein 6.5 H* (<1.0) mg/dL NT-Pro-B Natriuret Pep (0-450) pg/mL Total Protein 6.1 L (6.4-8.2) g/dl Albumin 2.3 L (3.4-5.0) g/dl Globulin 3.8 gm/dL Albumin/Globulin Ratio 0.6 L (1-2) 01/08/21 01/08/21 Range/Units 06:32 07:33 WBC (4.23-9.07) K/mm3 RBC (4.63-6.08) M/mm3 Hgb (13.7-17.5) gm/dl Hct (40.1-51.0) % MCV (79.0-92.2) fl MCH (25.7-32.2) pg MCHC (32.2-35.5) g/dl RDW Std Deviation (35.1-43.9) fL Plt Count (163-337) K/mm3 MPV (9.4-12.3) fl Neut % (Auto) (34.0-67.9) % Lymph % (Auto) (21.8-53.1) % Andrews % (Auto) (5.3-12.2) % Eos % (Auto) (0.8-7.0) Baso % (Auto) (0.1-1.2) % Neut # (Auto) (1.78-5.38) K/mm3 Lymph # (Auto) (1.32-3.57) K/mm3 Andrews # (Auto) (0.30-0.82) K/mm3 Eos # (Auto) (0.04-0.54) K/mm3 Baso # (Auto) (0.01-0.08) K/mm3 D-Dimer, Quantitative (0.19-0.50) mg/L ABG pH (7.35-7.45) ABG pCO2 (35.0-45.0) mmHg ABG pO2 (80.0-100.0) mmHg ABG HCO3 (22.0-26.0) meq/L ABG O2 Saturation (96.0-97.0) % ABG Base Excess (-2-2.0) Oracio Test O2 Delivery Device Sodium (136-145) mEq/L Potassium (3.5-5.1) mEq/L Chloride (98-107) mEq/L Carbon Dioxide (21-32) mEq/L Anion Gap (5-15) BUN (7-18) mg/dL Creatinine (0.7-1.3) mg/dL Est Cr Clr Drug Dosing mL/min Estimated GFR (MDRD) (>60) mL/min BUN/Creatinine Ratio (14-18) Glucose (70-99) mg/dL POC Glucose 223 H (70-99) mg/dL Hemoglobin A1c 6.6 H ( - 5.6) % Calcium (8.5-10.1) mg/dL Phosphorus (2.6-4.7) mg/dL Magnesium (1.8-2.4) mg/dL Total Bilirubin (0.2-1.0) mg/dL AST (15-37) U/L ALT (16-63) U/L Alkaline Phosphatase (46-116) U/L Troponin I (0.00-0.056) ng/mL C-Reactive Protein (<1.0) mg/dL NT-Pro-B Natriuret Pep (0-450) pg/mL Total Protein (6.4-8.2) g/dl Albumin (3.4-5.0) g/dl Globulin gm/dL Albumin/Globulin Ratio (1-2) Med Orders - Current: Current Medications Acetaminophen (Acetaminophen 325 Mg Tab) 650 mg PO Q4H PRN PRN Reason: Pain (Mild 1-3)/fever Albuterol/Ipratropium (Albuterol/Ipratropium 3.0-0.5 Mg/3 Ml Neb Soln) 3 ml NEB Q4H PRN PRN Reason: Shortness Of Breath/wheezing Last Admin: 01/08/21 05:55 Dose: 3 ml Documented by: Aspirin (Aspirin 81 Mg Tab.Ec) 81 mg PO DAILY [facility] Last Admin: 01/08/21 08:25 Dose: 81 mg Documented by: Atenolol (Atenolol 50 Mg Tab) 50 mg PO DAILY [facility] Last Admin: 01/08/21 08:25 Dose: 50 mg Documented by: Dexamethasone (Dexamethasone 4 Mg Tab) 6 mg PO DAILY [facility] Stop: 01/16/21 09:01 Last Admin: 01/08/21 08:25 Dose: 6 mg Documented by: Enoxaparin Sodium (Enoxaparin 30 Mg/0.3 Ml Syringe) 30 mg SUBCUT DAILY [facility] Last Admin: 01/08/21 08:23 Dose: 30 mg Documented by: Insulin Human Lispro (Insulin Lispro 100 Unit/Ml 10 Ml Vial) 0 unit SUBCUT QIDACANDBED [facility]; Protocol Last Admin: 01/08/21 08:24 Dose: 4 units Documented by: Ondansetron HCl (Ondansetron 4 Mg/2 Ml Sdv) 4 mg IV Q6H PRN PRN Reason: Nausea/Vomiting Sodium Chloride (Sodium Chloride 0.9% 10 Ml Syringe) 10 ml FLUSH ASDIRECTED PRN PRN Reason: Keep Vein Open Last Admin: 01/07/21 18:42 Dose: 10 ml Documented by: Tamsulosin HCl (Tamsulosin 0.4 Mg Cap.Er) 0.4 mg PO DAILY [facility] Last Admin: 01/08/21 08:25 Dose: 0.4 mg Documented by: Discontinued Medications Dexamethasone (Dexamethasone 4 Mg Tab) 6 mg PO ONETIME ONE Stop: 01/07/21 18:27 Last Admin: 01/07/21 18:42 Dose: 6 mg Documented by: Sodium Chloride (Normal Saline) 1,000 mls @ 100 mls/hr IV ASDIRECTED [facility] Stop: 01/08/21 07:29 Last Admin: 01/07/21 22:48 Dose: 100 mls/hr Documented by: Insulin Human Lispro (Insulin Lispro 100 Unit/Ml 10 Ml Vial) 0 unit SUBCUT QIDACANDBED [facility]; Protocol - Exam Quality Assessment: Supplemental Oxygen General: Alert HEENT: Pupils Equal, Mucous Membr. Moist/[place] Neck: Supple Lungs: Crackles (Throughout both lung hernandez). No: Normal Respiratory Effort (Increased respiratory rate) Cardiovascular: Regular Rate, Regular Rhythm GI/Abdominal Exam: Normal Bowel Sounds, Soft, Non-Tender, No Distention Extremities: Normal Inspection, No Pedal Edema, Normal Capillary Refill Skin: Warm, Dry, Intact Psy/Mental Status: Alert, Normal Affect, Normal Mood - Patient Data Lab Results Last 24 hrs: Laboratory Results - last 24 hr 01/07/21 01/07/21 01/07/21 Range/Units 18:20 18:40 18:40 WBC 6.09 (4.23-9.07) K/mm3 RBC 4.50 L (4.63-6.08) M/mm3 Hgb 13.0 L (13.7-17.5) gm/dl Hct 39.4 L (40.1-51.0) % MCV 87.6 (79.0-92.2) fl MCH 28.9 (25.7-32.2) pg MCHC 33.0 (32.2-35.5) g/dl RDW Std Deviation 43.4 (35.1-43.9) fL Plt Count 158 L (163-337) K/mm3 MPV 10.6 (9.4-12.3) fl Neut % (Auto) 89.2 H (34.0-67.9) % Lymph % (Auto) 6.9 L (21.8-53.1) % Andrews % (Auto) 3.4 L (5.3-12.2) % Eos % (Auto) 0 L (0.8-7.0) Baso % (Auto) 0.2 (0.1-1.2) % Neut # (Auto) 5.43 H (1.78-5.38) K/mm3 Lymph # (Auto) 0.42 L (1.32-3.57) K/mm3 Andrews # (Auto) 0.21 L (0.30-0.82) K/mm3 Eos # (Auto) 0.00 L (0.04-0.54) K/mm3 Baso # (Auto) 0.01 (0.01-0.08) K/mm3 D-Dimer, Quantitative 1.24 H (0.19-0.50) mg/L ABG pH 7.43 (7.35-7.45) ABG pCO2 29.3 L (35.0-45.0) mmHg ABG pO2 45.0 L (80.0-100.0) mmHg ABG HCO3 19.1 L (22.0-26.0) meq/L ABG O2 Saturation 78.2 L (96.0-97.0) % ABG Base Excess -3.6 L (-2-2.0) Oracio Test Positive O2 Delivery Device Room air Sodium (136-145) mEq/L Potassium (3.5-5.1) mEq/L Chloride (98-107) mEq/L Carbon Dioxide (21-32) mEq/L Anion Gap (5-15) BUN (7-18) mg/dL Creatinine (0.7-1.3) mg/dL Est Cr Clr Drug Dosing mL/min Estimated GFR (MDRD) (>60) mL/min BUN/Creatinine Ratio (14-18) Glucose (70-99) mg/dL POC Glucose (70-99) mg/dL Hemoglobin A1c ( - 5.6) % Calcium (8.5-10.1) mg/dL Phosphorus (2.6-4.7) mg/dL Magnesium (1.8-2.4) mg/dL Total Bilirubin (0.2-1.0) mg/dL AST (15-37) U/L ALT (16-63) U/L Alkaline Phosphatase (46-116) U/L Troponin I (0.00-0.056) ng/mL C-Reactive Protein (<1.0) mg/dL NT-Pro-B Natriuret Pep (0-450) pg/mL Total Protein (6.4-8.2) g/dl Albumin (3.4-5.0) g/dl Globulin gm/dL Albumin/Globulin Ratio (1-2) 01/07/21 01/07/21 01/07/21 Range/Units 18:40 18:40 22:32 WBC (4.23-9.07) K/mm3 RBC (4.63-6.08) M/mm3 Hgb (13.7-17.5) gm/dl Hct (40.1-51.0) % MCV (79.0-92.2) fl MCH (25.7-32.2) pg MCHC (32.2-35.5) g/dl RDW Std Deviation (35.1-43.9) fL Plt Count (163-337) K/mm3 MPV (9.4-12.3) fl Neut % (Auto) (34.0-67.9) % Lymph % (Auto) (21.8-53.1) % Andrews % (Auto) (5.3-12.2) % Eos % (Auto) (0.8-7.0) Baso % (Auto) (0.1-1.2) % Neut # (Auto) (1.78-5.38) K/mm3 Lymph # (Auto) (1.32-3.57) K/mm3 Andrews # (Auto) (0.30-0.82) K/mm3 Eos # (Auto) (0.04-0.54) K/mm3 Baso # (Auto) (0.01-0.08) K/mm3 D-Dimer, Quantitative (0.19-0.50) mg/L ABG pH (7.35-7.45) ABG pCO2 (35.0-45.0) mmHg ABG pO2 (80.0-100.0) mmHg ABG HCO3 (22.0-26.0) meq/L ABG O2 Saturation (96.0-97.0) % ABG Base Excess (-2-2.0) Oracio Test O2 Delivery Device Sodium 135 L (136-145) mEq/L Potassium 4.3 (3.5-5.1) mEq/L Chloride 98 (98-107) mEq/L Carbon Dioxide 25 (21-32) mEq/L Anion Gap 16.3 H (5-15) BUN 35 H (7-18) mg/dL Creatinine 2.1 H (0.7-1.3) mg/dL Est Cr Clr Drug Dosing 26.69 mL/min Estimated GFR (MDRD) 30 (>60) mL/min BUN/Creatinine Ratio 16.7 (14-18) Glucose 202 H (70-99) mg/dL POC Glucose 152 H (70-99) mg/dL Hemoglobin A1c ( - 5.6) % Calcium 7.6 L (8.5-10.1) mg/dL Phosphorus (2.6-4.7) mg/dL Magnesium (1.8-2.4) mg/dL Total Bilirubin 0.4 (0.2-1.0) mg/dL AST 50 H (15-37) U/L ALT 34 (16-63) U/L Alkaline Phosphatase 45 L (46-116) U/L Troponin I 0.056 (0.00-0.056) ng/mL C-Reactive Protein 5.1 H* (<1.0) mg/dL NT-Pro-B Natriuret Pep 863 H (0-450) pg/mL Total Protein 6.5 (6.4-8.2) g/dl Albumin 2.6 L (3.4-5.0) g/dl Globulin 3.9 gm/dL Albumin/Globulin Ratio 0.7 L (1-2) 01/08/21 01/08/21 01/08/21 Range/Units 06:32 06:32 06:32 WBC 5.94 (4.23-9.07) K/mm3 RBC 4.53 L (4.63-6.08) M/mm3 Hgb 12.8 L (13.7-17.5) gm/dl Hct 39.3 L (40.1-51.0) % MCV 86.8 (79.0-92.2) fl MCH 28.3 (25.7-32.2) pg MCHC 32.6 (32.2-35.5) g/dl RDW Std Deviation 43.5 (35.1-43.9) fL Plt Count 158 L (163-337) K/mm3 MPV 11.3 (9.4-12.3) fl Neut % (Auto) 84.4 H (34.0-67.9) % Lymph % (Auto) 10.8 L (21.8-53.1) % Andrews % (Auto) 4.4 L (5.3-12.2) % Eos % (Auto) 0 L (0.8-7.0) Baso % (Auto) 0.2 (0.1-1.2) % Neut # (Auto) 5.02 (1.78-5.38) K/mm3 Lymph # (Auto) 0.64 L (1.32-3.57) K/mm3 Andrews # (Auto) 0.26 L (0.30-0.82) K/mm3 Eos # (Auto) 0.00 L (0.04-0.54) K/mm3 Baso # (Auto) 0.01 (0.01-0.08) K/mm3 D-Dimer, Quantitative 1.34 H (0.19-0.50) mg/L ABG pH (7.35-7.45) ABG pCO2 (35.0-45.0) mmHg ABG pO2 (80.0-100.0) mmHg ABG HCO3 (22.0-26.0) meq/L ABG O2 Saturation (96.0-97.0) % ABG Base Excess (-2-2.0) Oracio Test O2 Delivery Device Sodium 138 (136-145) mEq/L Potassium 3.3 L (3.5-5.1) mEq/L Chloride 102 (98-107) mEq/L Carbon Dioxide 27 (21-32) mEq/L Anion Gap 12.3 (5-15) BUN 33 H (7-18) mg/dL Creatinine 1.6 H (0.7-1.3) mg/dL Est Cr Clr Drug Dosing 33.85 mL/min Estimated GFR (MDRD) 42 (>60) mL/min BUN/Creatinine Ratio 20.6 H (14-18) Glucose 223 H (70-99) mg/dL POC Glucose (70-99) mg/dL Hemoglobin A1c ( - 5.6) % Calcium 7.4 L (8.5-10.1) mg/dL Phosphorus 4.8 H (2.6-4.7) mg/dL Magnesium 1.8 (1.8-2.4) mg/dL Total Bilirubin 0.4 (0.2-1.0) mg/dL AST 41 H (15-37) U/L ALT 31 (16-63) U/L Alkaline Phosphatase 41 L (46-116) U/L Troponin I (0.00-0.056) ng/mL C-Reactive Protein 6.5 H* (<1.0) mg/dL NT-Pro-B Natriuret Pep (0-450) pg/mL Total Protein 6.1 L (6.4-8.2) g/dl Albumin 2.3 L (3.4-5.0) g/dl Globulin 3.8 gm/dL Albumin/Globulin Ratio 0.6 L (1-2) 01/08/21 01/08/21 Range/Units 06:32 07:33 WBC (4.23-9.07) K/mm3 RBC (4.63-6.08) M/mm3 Hgb (13.7-17.5) gm/dl Hct (40.1-51.0) % MCV (79.0-92.2) fl MCH (25.7-32.2) pg MCHC (32.2-35.5) g/dl RDW Std Deviation (35.1-43.9) fL Plt Count (163-337) K/mm3 MPV (9.4-12.3) fl Neut % (Auto) (34.0-67.9) % Lymph % (Auto) (21.8-53.1) % Andrews % (Auto) (5.3-12.2) % Eos % (Auto) (0.8-7.0) Baso % (Auto) (0.1-1.2) % Neut # (Auto) (1.78-5.38) K/mm3 Lymph # (Auto) (1.32-3.57) K/mm3 Andrews # (Auto) (0.30-0.82) K/mm3 Eos # (Auto) (0.04-0.54) K/mm3 Baso # (Auto) (0.01-0.08) K/mm3 D-Dimer, Quantitative (0.19-0.50) mg/L ABG pH (7.35-7.45) ABG pCO2 (35.0-45.0) mmHg ABG pO2 (80.0-100.0) mmHg ABG HCO3 (22.0-26.0) meq/L ABG O2 Saturation (96.0-97.0) % ABG Base Excess (-2-2.0) Oracio Test O2 Delivery Device Sodium (136-145) mEq/L Potassium (3.5-5.1) mEq/L Chloride (98-107) mEq/L Carbon Dioxide (21-32) mEq/L Anion Gap (5-15) BUN (7-18) mg/dL Creatinine (0.7-1.3) mg/dL Est Cr Clr Drug Dosing mL/min Estimated GFR (MDRD) (>60) mL/min BUN/Creatinine Ratio (14-18) Glucose (70-99) mg/dL POC Glucose 223 H (70-99) mg/dL Hemoglobin A1c 6.6 H ( - 5.6) % Calcium (8.5-10.1) mg/dL Phosphorus (2.6-4.7) mg/dL Magnesium (1.8-2.4) mg/dL Total Bilirubin (0.2-1.0) mg/dL AST (15-37) U/L ALT (16-63) U/L Alkaline Phosphatase (46-116) U/L Troponin I (0.00-0.056) ng/mL C-Reactive Protein (<1.0) mg/dL NT-Pro-B Natriuret Pep (0-450) pg/mL Total Protein (6.4-8.2) g/dl Albumin (3.4-5.0) g/dl Globulin gm/dL Albumin/Globulin Ratio (1-2) Result Diagrams: 01/08/21 06:32 01/08/21 06:32 Sepsis Event Note - Evaluation Sepsis Screening Result: Possible Sepsis Risk - Focused Exam Vital Signs: Vital Signs Temp Temp Pulse Pulse Resp BP BP 01/08/21 08:25 66 131/77 01/08/21 08:00 98.2 F 66 25 H 131/77 01/08/21 05:55 01/08/21 03:36 98.2 F 63 28 H 126/58 L 01/07/21 23:46 73 01/07/21 23:44 99.3 F 72 28 H 125/60 01/07/21 22:31 01/07/21 22:30 01/07/21 22:29 01/07/21 22:28 01/07/21 21:32 100.8 F H 71 24 H 156/99 H 01/07/21 21:08 Pulse Ox Pulse Ox Pulse Ox 01/08/21 08:25 01/08/21 08:00 91 L 01/08/21 05:55 87 L 87 L 01/08/21 03:36 87 L 01/07/21 23:46 87 L 01/07/21 23:44 01/07/21 22:31 87 L 87 L 01/07/21 22:30 84 L 85 L 01/07/21 22:29 83 L 01/07/21 22:28 81 L 01/07/21 21:32 90 L 01/07/21 21:08 91 L - Problem List & Annotations (1) Diabetes mellitus type 2 in obese SNOMED Code(s): 02201992 Code(s): E11.69 - TYPE 2 DIABETES MELLITUS WITH OTHER SPECIFIED COMPLICATION; E66.9 - OBESITY, UNSPECIFIED Status: Acute Current Visit: Yes (2) HTN (hypertension) SNOMED Code(s): 48076451 Code(s): I10 - ESSENTIAL (PRIMARY) HYPERTENSION Status: Acute Current Visit: Yes (3) Respiratory failure with hypoxia SNOMED Code(s): 50761101260464449 Code(s): J96.91 - RESPIRATORY FAILURE, UNSPECIFIED WITH HYPOXIA Status: Acute Current Visit: Yes (4) Acute renal failure SNOMED Code(s): 62205338 Code(s): N17.9 - ACUTE KIDNEY FAILURE, UNSPECIFIED Status: Acute Current Visit: Yes (5) Pneumonia due to COVID-19 virus SNOMED Code(s): 257352333366744950 Code(s): U07.1 - COVID-19; J12.82 - PNEUMONIA DUE TO CORONAVIRUS DISEASE 2019 Status: Acute Current Visit: Yes - Problem List Review Problem List Initiated/Reviewed/Updated: Yes - My Orders Last 24 Hours: My Active Orders 01/07/21 18:40 PROCALCITONIN [REF] Routine 01/07/21 21:25 Oxygen Therapy [RC] PRN Up With Assistance [RC] QSHIFT VTE/DVT Education [RC] DAILY Vital Signs [RC] Q4HR PT Evaluation and Treatment [CONS] Routine Acetaminophen [TylenoL] 650 mg PO Q4H PRN Albuterol/Ipratropium [DuoNeb 3.0-0.5 MG/3 ML] 3 ml NEB Q4H PRN Ondansetron [Zofran] 4 mg IV Q6H PRN Isolation [COMM] Stat Resuscitation Status Routine 01/07/21 21:27 RT Aerosol Therapy [RC] ASDIRECTED 01/07/21 21:29 Blood Glucose Check, Bedside [RC] QIDACANDBED 01/07/21 22:00 Insulin Lispro [HumaLOG] See Protocol SUBCUT QIDACANDBED 01/08/21 Breakfast Regular Diet [DIET] 01/08/21 07:17 Chest Physiotherapy [RT Chest Physiotherapy] [RC] ASDIRECTED Incentive Spirometry [RT Incentive Spirometry] [RC] ASDIRECTED 01/08/21 07:55 BIPAP [RT BiPAP/CPAP] [RC] ASDIRECTED 01/08/21 09:00 Aspirin [Halfprin] 81 mg PO DAILY Enoxaparin [Lovenox] 30 mg SUBCUT DAILY Tamsulosin [Flomax] 0.4 mg PO DAILY atenoloL [Tenormin] 50 mg PO DAILY dexAMETHasone 6 mg PO DAILY - Plan Plan:: 80-year-old male vaccinated with Pfizer vaccine presents in respiratory failure secondary to COVID-19 pneumonia COVID-19 pneumonia Respiratory failure with hypoxia * Transfer to ICU * Currently on BiPAP * CRP increased to 6.6, albumin 2.6, D-dimer 1.34, WBC 6 * BNP 863. This is likely elevated partly due to renal failure and COVID-19. Also, he could have some degree of fluid overload based on the chest x-ray. May consider echocardiogram in the future. * Patient has overall very poor prognosis. * He request to be a full code. * Given dexamethasone, Rocephin, but remdesivir was held secondary to renal function in the emergency department * Chest x-ray shows bilateral infiltrates consistent with moderate Covid 19 pneumonia * EKG: Normal sinus rhythm, ventricular rate 77 bpm, left axis deviation. Acute renal failureimproved * Creatinine down to 1.6 and GFR is greater than 30 allowing us to start remdesivir * Most recent creatinine on file is from June 2019 and it was 1.1 with a GFR of greater than 60. * He may have some underlying diabetic nephropathy Type 2 diabetes * Presenting blood sugar 202 * Hemoglobin A1c 6.6 * Home meds include glipizide and Metformin per chart notes Anemia of chronic disease * Normochromic, normocytic anemia likely secondary to chronic disease * Hemoglobin 13, hematocrit 39.4 * Platelets 158 Hypertension * Home med list includes amlodipine, hydrochlorothiazide, losartan, And Cardura BPH * Home meds include Cardura and Flomax Plan * Admit to medical floor in respiratory isolation * High flow nasal cannula to keep SPO2 above 87% * Transfer to ICU if any worsening condition * Continue dexamethasone 6 mg daily * Continue Rocephin for 5 days * Azithromycin 500 mg IV daily for 3 days * Start remdesivir * Stop IV fluids * Follow labs closely * Pepcid 20 mg IV twice daily for GI protection * Respiratory therapy, Acapella, I-S * Albuterol/Atrovent nebs every 6 hours as needed * Albuterol every 2 hours as needed * Encourage proning * Sliding scale insulin * Follow CBC, CMP, mag, Phos, CRP, D-dimer * Get procalcitonin * VTE prophylaxis with Lovenox * CODE STATUS: Full code. I explained to the patient he is a very high risk for intubation and mortality, but I am not sure how much he understands.
[2021-01-08] MEDS ORDERED: REMDESIVIR 200 MG in Sodium Chloride 0.9% 250 ML IV ONE (10:00)
[2021-01-08] MEDS: Potassium Chloride 10 MEQ in Premix Bag 1 BAG IV SCH ×4 (10:24→13:57)
[2021-01-08] MEDS: Famotidine 20 MG/2 ML SDV IVPUSH SCH ×2 (19:38→20:18)
[2021-01-09] MEDS ORDERED: Sodium Chloride 0.9% 1,000 ML IV SCH (08:15)
[2021-01-09] MEDS: Albuterol/Ipratropium 3.0-0.5 MG/3 ML Neb Soln NEB PRN ×3 (08:17→21:41)
--- NOTE | 2021-01-09 08:24 | PCM.PN ---
- General Info Date of Service: 01/09/21 Admission Dx/Problem (Free Text): Admission Diagnosis/Problem Admission Diagnosis/Problem Covid-19 Pneumonia Subjective Update: 80-year-old male with respiratory failure secondary to COVID-19 pneumonia. He continues to worsen and is now on BiPAP. Patient's renal function has also worsened and he continues to be confused. He is more confused today than yesterday. Functional Status: Reports: Pain Controlled - Review of Systems General: Reports: Other (Unable to obtain secondary to confusion) - Patient Data Vitals - Most Recent: Last Vital Signs Temp 98 F 01/09/21 04:00 Pulse 56 L 01/08/21 16:00 Resp 22 H 01/09/21 04:00 BP 119/63 01/09/21 04:00 Pulse Ox 91 L 01/09/21 05:00 Weight - Most Recent: 209 lb I&O - Last 24 Hours: Intake & Output 01/08/21 01/09/21 01/09/21 22:59 06:59 14:59 Intake Total 1550 300 Output Total 1000 Balance 550 300 Lab Results Last 24 Hours: Laboratory Results - last 24 hr 01/07/21 01/08/21 01/08/21 Range/Units 18:40 06:32 12:10 WBC (4.23-9.07) K/mm3 RBC (4.63-6.08) M/mm3 Hgb (13.7-17.5) gm/dl Hct (40.1-51.0) % MCV (79.0-92.2) fl MCH (25.7-32.2) pg MCHC (32.2-35.5) g/dl RDW Std Deviation (35.1-43.9) fL Plt Count (163-337) K/mm3 MPV (9.4-12.3) fl Neut % (Auto) (34.0-67.9) % Lymph % (Auto) (21.8-53.1) % [place] % (Auto) (5.3-12.2) % Eos % (Auto) (0.8-7.0) Baso % (Auto) (0.1-1.2) % Neut # (Auto) (1.78-5.38) K/mm3 Lymph # (Auto) (1.32-3.57) K/mm3 [place] # (Auto) (0.30-0.82) K/mm3 Eos # (Auto) (0.04-0.54) K/mm3 Baso # (Auto) (0.01-0.08) K/mm3 Sodium 138 (136-145) mEq/L Potassium 3.3 L (3.5-5.1) mEq/L Chloride 102 (98-107) mEq/L Carbon Dioxide 27 (21-32) mEq/L Anion Gap 12.3 (5-15) BUN 33 H (7-18) mg/dL Creatinine 1.6 H (0.7-1.3) mg/dL Est Cr Clr Drug Dosing 33.85 mL/min Estimated GFR (MDRD) 42 (>60) mL/min BUN/Creatinine Ratio 20.6 H (14-18) Glucose 223 H (70-99) mg/dL POC Glucose 187 H (70-99) mg/dL Calcium 7.4 L (8.5-10.1) mg/dL Phosphorus 4.8 H (2.6-4.7) mg/dL Magnesium 1.8 (1.8-2.4) mg/dL Total Bilirubin 0.4 (0.2-1.0) mg/dL AST 41 H (15-37) U/L ALT 31 (16-63) U/L Alkaline Phosphatase 41 L (46-116) U/L C-Reactive Protein 6.5 H* (<1.0) mg/dL Total Protein 6.1 L (6.4-8.2) g/dl Albumin 2.3 L (3.4-5.0) g/dl Globulin 3.8 gm/dL Albumin/Globulin Ratio 0.6 L (1-2) Procalcitonin 0.14 H ng/mL 01/08/21 01/08/21 01/09/21 Range/Units 16:53 19:47 04:50 WBC 8.10 (4.23-9.07) K/mm3 RBC 4.53 L (4.63-6.08) M/mm3 Hgb 13.1 L (13.7-17.5) gm/dl Hct 39.4 L (40.1-51.0) % MCV 87.0 (79.0-92.2) fl MCH 28.9 (25.7-32.2) pg MCHC 33.2 (32.2-35.5) g/dl RDW Std Deviation 43.6 (35.1-43.9) fL Plt Count 152 L (163-337) K/mm3 MPV 10.9 (9.4-12.3) fl Neut % (Auto) 89.5 H (34.0-67.9) % Lymph % (Auto) 7.9 L (21.8-53.1) % [place] % (Auto) 2.3 L (5.3-12.2) % Eos % (Auto) 0 L (0.8-7.0) Baso % (Auto) 0.1 (0.1-1.2) % Neut # (Auto) 7.24 H (1.78-5.38) K/mm3 Lymph # (Auto) 0.64 L (1.32-3.57) K/mm3 [place] # (Auto) 0.19 L (0.30-0.82) K/mm3 Eos # (Auto) 0.00 L (0.04-0.54) K/mm3 Baso # (Auto) 0.01 (0.01-0.08) K/mm3 Sodium (136-145) mEq/L Potassium (3.5-5.1) mEq/L Chloride (98-107) mEq/L Carbon Dioxide (21-32) mEq/L Anion Gap (5-15) BUN (7-18) mg/dL Creatinine (0.7-1.3) mg/dL Est Cr Clr Drug Dosing mL/min Estimated GFR (MDRD) (>60) mL/min BUN/Creatinine Ratio (14-18) Glucose (70-99) mg/dL POC Glucose 284 H 377 H (70-99) mg/dL Calcium (8.5-10.1) mg/dL Phosphorus (2.6-4.7) mg/dL Magnesium (1.8-2.4) mg/dL Total Bilirubin (0.2-1.0) mg/dL AST (15-37) U/L ALT (16-63) U/L Alkaline Phosphatase (46-116) U/L C-Reactive Protein (<1.0) mg/dL Total Protein (6.4-8.2) g/dl Albumin (3.4-5.0) g/dl Globulin gm/dL Albumin/Globulin Ratio (1-2) Procalcitonin ng/mL 01/09/21 01/09/21 Range/Units 04:50 06:15 WBC (4.23-9.07) K/mm3 RBC (4.63-6.08) M/mm3 Hgb (13.7-17.5) gm/dl Hct (40.1-51.0) % MCV (79.0-92.2) fl MCH (25.7-32.2) pg MCHC (32.2-35.5) g/dl RDW Std Deviation (35.1-43.9) fL Plt Count (163-337) K/mm3 MPV (9.4-12.3) fl Neut % (Auto) (34.0-67.9) % Lymph % (Auto) (21.8-53.1) % [place] % (Auto) (5.3-12.2) % Eos % (Auto) (0.8-7.0) Baso % (Auto) (0.1-1.2) % Neut # (Auto) (1.78-5.38) K/mm3 Lymph # (Auto) (1.32-3.57) K/mm3 [place] # (Auto) (0.30-0.82) K/mm3 Eos # (Auto) (0.04-0.54) K/mm3 Baso # (Auto) (0.01-0.08) K/mm3 Sodium 138 (136-145) mEq/L Potassium 3.9 (3.5-5.1) mEq/L Chloride 102 (98-107) mEq/L Carbon Dioxide 24 (21-32) mEq/L Anion Gap 15.9 H (5-15) BUN 52 H (7-18) mg/dL Creatinine 1.7 H (0.7-1.3) mg/dL Est Cr Clr Drug Dosing 31.86 mL/min Estimated GFR (MDRD) 39 (>60) mL/min BUN/Creatinine Ratio 30.6 H (14-18) Glucose 232 H (70-99) mg/dL POC Glucose 220 H (70-99) mg/dL Calcium 7.6 L (8.5-10.1) mg/dL Phosphorus 4.4 (2.6-4.7) mg/dL Magnesium 2.1 (1.8-2.4) mg/dL Total Bilirubin 0.3 (0.2-1.0) mg/dL AST 38 H (15-37) U/L ALT 28 (16-63) U/L Alkaline Phosphatase 46 (46-116) U/L C-Reactive Protein 6.6 H* (<1.0) mg/dL Total Protein 6.2 L (6.4-8.2) g/dl Albumin 2.2 L (3.4-5.0) g/dl Globulin 4.0 gm/dL Albumin/Globulin Ratio 0.6 L (1-2) Procalcitonin ng/mL Med Orders - Current: Current Medications Acetaminophen (Acetaminophen 325 Mg Tab) 650 mg PO Q4H PRN PRN Reason: Pain (Mild 1-3)/fever Albuterol/Ipratropium (Albuterol/Ipratropium 3.0-0.5 Mg/3 Ml Neb Soln) 3 ml NEB Q4H PRN PRN Reason: Shortness Of Breath/wheezing Last Admin: 01/08/21 15:36 Dose: 3 ml Documented by: Aspirin (Aspirin 81 Mg Tab.Ec) 81 mg PO DAILY [facility] Last Admin: 01/08/21 08:25 Dose: 81 mg Documented by: Atenolol (Atenolol 50 Mg Tab) 50 mg PO DAILY [facility] Last Admin: 01/08/21 08:25 Dose: 50 mg Documented by: Dexamethasone (Dexamethasone 4 Mg Tab) 6 mg PO DAILY [facility] Stop: 01/16/21 09:01 Last Admin: 01/08/21 08:25 Dose: 6 mg Documented by: Enoxaparin Sodium (Enoxaparin 40 Mg/0.4 Ml Syringe) 40 mg SUBCUT DAILY [facility] Famotidine (Famotidine 20 Mg/2 Ml Sdv) 20 mg IVPUSH BEDTIME [facility] Last Admin: 01/08/21 20:18 Dose: Not Given Documented by: Remdesivir 100 mg/ Sodium (Chloride) 100 mls @ 100 mls/hr IV Q24H [facility] Stop: 01/12/21 10:59 Sodium Chloride (Normal Saline) 1,000 mls @ 100 mls/hr IV ASDIRECTED [facility] Stop: 01/09/21 18:14 Insulin Human Lispro (Insulin Lispro 100 Unit/Ml 10 Ml Vial) 0 unit SUBCUT QIDACANDBED [facility]; Protocol Last Admin: 01/08/21 22:06 Dose: Not Given Documented by: Ondansetron HCl (Ondansetron 4 Mg/2 Ml Sdv) 4 mg IV Q6H PRN PRN Reason: Nausea/Vomiting Sodium Chloride (Sodium Chloride 0.9% 10 Ml Syringe) 10 ml FLUSH ASDIRECTED PRN PRN Reason: Keep Vein Open Last Admin: 01/07/21 18:42 Dose: 10 ml Documented by: Tamsulosin HCl (Tamsulosin 0.4 Mg Cap.Er) 0.4 mg PO DAILY [facility] Last Admin: 01/08/21 08:25 Dose: 0.4 mg Documented by: Discontinued Medications Dexamethasone (Dexamethasone 4 Mg Tab) 6 mg PO ONETIME ONE Stop: 01/07/21 18:27 Last Admin: 01/07/21 18:42 Dose: 6 mg Documented by: Enoxaparin Sodium (Enoxaparin 30 Mg/0.3 Ml Syringe) 30 mg SUBCUT DAILY [facility] Last Admin: 01/08/21 08:23 Dose: 30 mg Documented by: Sodium Chloride (Normal Saline) 1,000 mls @ 100 mls/hr IV ASDIRECTED [facility] Stop: 01/08/21 07:29 Last Admin: 01/07/21 22:48 Dose: 100 mls/hr Documented by: Remdesivir 200 mg/ Sodium (Chloride) 250 mls @ 250 mls/hr IV ONETIME ONE Stop: 01/08/21 10:59 Last Admin: 01/08/21 10:24 Dose: 250 mls/hr Documented by: Potassium Chloride 10 meq/ (Premix) 100 mls @ 100 mls/hr IV Q1H [facility] Stop: 01/08/21 13:29 Last Admin: 01/08/21 13:57 Dose: 100 mls/hr Documented by: Insulin Human Lispro (Insulin Lispro 100 Unit/Ml 10 Ml Vial) 0 unit SUBCUT QIDACANDBED [facility]; Protocol - Exam Quality Assessment: Supplemental Oxygen (BiPAP) General: Alert. No: Oriented HEENT: Pupils Equal, Mucous Membr. Moist/[place] Neck: Supple Lungs: Crackles (Throughout both lung hernandez). No: Normal Respiratory Effort Cardiovascular: Regular Rate, Regular Rhythm GI/Abdominal Exam: Normal Bowel Sounds, Soft, Non-Tender, No Distention Extremities: Normal Inspection, Normal Range of Motion, Non-Tender, No Pedal Edema Psy/Mental Status: Other (Confused) - Patient Data Lab Results Last 24 hrs: Laboratory Results - last 24 hr 01/07/21 01/08/21 01/08/21 Range/Units 18:40 06:32 12:10 WBC (4.23-9.07) K/mm3 RBC (4.63-6.08) M/mm3 Hgb (13.7-17.5) gm/dl Hct (40.1-51.0) % MCV (79.0-92.2) fl MCH (25.7-32.2) pg MCHC (32.2-35.5) g/dl RDW Std Deviation (35.1-43.9) fL Plt Count (163-337) K/mm3 MPV (9.4-12.3) fl Neut % (Auto) (34.0-67.9) % Lymph % (Auto) (21.8-53.1) % [place] % (Auto) (5.3-12.2) % Eos % (Auto) (0.8-7.0) Baso % (Auto) (0.1-1.2) % Neut # (Auto) (1.78-5.38) K/mm3 Lymph # (Auto) (1.32-3.57) K/mm3 [place] # (Auto) (0.30-0.82) K/mm3 Eos # (Auto) (0.04-0.54) K/mm3 Baso # (Auto) (0.01-0.08) K/mm3 Sodium 138 (136-145) mEq/L Potassium 3.3 L (3.5-5.1) mEq/L Chloride 102 (98-107) mEq/L Carbon Dioxide 27 (21-32) mEq/L Anion Gap 12.3 (5-15) BUN 33 H (7-18) mg/dL Creatinine 1.6 H (0.7-1.3) mg/dL Est Cr Clr Drug Dosing 33.85 mL/min Estimated GFR (MDRD) 42 (>60) mL/min BUN/Creatinine Ratio 20.6 H (14-18) Glucose 223 H (70-99) mg/dL POC Glucose 187 H (70-99) mg/dL Calcium 7.4 L (8.5-10.1) mg/dL Phosphorus 4.8 H (2.6-4.7) mg/dL Magnesium 1.8 (1.8-2.4) mg/dL Total Bilirubin 0.4 (0.2-1.0) mg/dL AST 41 H (15-37) U/L ALT 31 (16-63) U/L Alkaline Phosphatase 41 L (46-116) U/L C-Reactive Protein 6.5 H* (<1.0) mg/dL Total Protein 6.1 L (6.4-8.2) g/dl Albumin 2.3 L (3.4-5.0) g/dl Globulin 3.8 gm/dL Albumin/Globulin Ratio 0.6 L (1-2) Procalcitonin 0.14 H ng/mL 01/08/21 01/08/21 01/09/21 Range/Units 16:53 19:47 04:50 WBC 8.10 (4.23-9.07) K/mm3 RBC 4.53 L (4.63-6.08) M/mm3 Hgb 13.1 L (13.7-17.5) gm/dl Hct 39.4 L (40.1-51.0) % MCV 87.0 (79.0-92.2) fl MCH 28.9 (25.7-32.2) pg MCHC 33.2 (32.2-35.5) g/dl RDW Std Deviation 43.6 (35.1-43.9) fL Plt Count 152 L (163-337) K/mm3 MPV 10.9 (9.4-12.3) fl Neut % (Auto) 89.5 H (34.0-67.9) % Lymph % (Auto) 7.9 L (21.8-53.1) % [place] % (Auto) 2.3 L (5.3-12.2) % Eos % (Auto) 0 L (0.8-7.0) Baso % (Auto) 0.1 (0.1-1.2) % Neut # (Auto) 7.24 H (1.78-5.38) K/mm3 Lymph # (Auto) 0.64 L (1.32-3.57) K/mm3 [place] # (Auto) 0.19 L (0.30-0.82) K/mm3 Eos # (Auto) 0.00 L (0.04-0.54) K/mm3 Baso # (Auto) 0.01 (0.01-0.08) K/mm3 Sodium (136-145) mEq/L Potassium (3.5-5.1) mEq/L Chloride (98-107) mEq/L Carbon Dioxide (21-32) mEq/L Anion Gap (5-15) BUN (7-18) mg/dL Creatinine (0.7-1.3) mg/dL Est Cr Clr Drug Dosing mL/min Estimated GFR (MDRD) (>60) mL/min BUN/Creatinine Ratio (14-18) Glucose (70-99) mg/dL POC Glucose 284 H 377 H (70-99) mg/dL Calcium (8.5-10.1) mg/dL Phosphorus (2.6-4.7) mg/dL Magnesium (1.8-2.4) mg/dL Total Bilirubin (0.2-1.0) mg/dL AST (15-37) U/L ALT (16-63) U/L Alkaline Phosphatase (46-116) U/L C-Reactive Protein (<1.0) mg/dL Total Protein (6.4-8.2) g/dl Albumin (3.4-5.0) g/dl Globulin gm/dL Albumin/Globulin Ratio (1-2) Procalcitonin ng/mL 01/09/21 01/09/21 Range/Units 04:50 06:15 WBC (4.23-9.07) K/mm3 RBC (4.63-6.08) M/mm3 Hgb (13.7-17.5) gm/dl Hct (40.1-51.0) % MCV (79.0-92.2) fl MCH (25.7-32.2) pg MCHC (32.2-35.5) g/dl RDW Std Deviation (35.1-43.9) fL Plt Count (163-337) K/mm3 MPV (9.4-12.3) fl Neut % (Auto) (34.0-67.9) % Lymph % (Auto) (21.8-53.1) % [place] % (Auto) (5.3-12.2) % Eos % (Auto) (0.8-7.0) Baso % (Auto) (0.1-1.2) % Neut # (Auto) (1.78-5.38) K/mm3 Lymph # (Auto) (1.32-3.57) K/mm3 [place] # (Auto) (0.30-0.82) K/mm3 Eos # (Auto) (0.04-0.54) K/mm3 Baso # (Auto) (0.01-0.08) K/mm3 Sodium 138 (136-145) mEq/L Potassium 3.9 (3.5-5.1) mEq/L Chloride 102 (98-107) mEq/L Carbon Dioxide 24 (21-32) mEq/L Anion Gap 15.9 H (5-15) BUN 52 H (7-18) mg/dL Creatinine 1.7 H (0.7-1.3) mg/dL Est Cr Clr Drug Dosing 31.86 mL/min Estimated GFR (MDRD) 39 (>60) mL/min BUN/Creatinine Ratio 30.6 H (14-18) Glucose 232 H (70-99) mg/dL POC Glucose 220 H (70-99) mg/dL Calcium 7.6 L (8.5-10.1) mg/dL Phosphorus 4.4 (2.6-4.7) mg/dL Magnesium 2.1 (1.8-2.4) mg/dL Total Bilirubin 0.3 (0.2-1.0) mg/dL AST 38 H (15-37) U/L ALT 28 (16-63) U/L Alkaline Phosphatase 46 (46-116) U/L C-Reactive Protein 6.6 H* (<1.0) mg/dL Total Protein 6.2 L (6.4-8.2) g/dl Albumin 2.2 L (3.4-5.0) g/dl Globulin 4.0 gm/dL Albumin/Globulin Ratio 0.6 L (1-2) Procalcitonin ng/mL Result Diagrams: 01/09/21 04:50 01/09/21 04:50 Sepsis Event Note - Evaluation Sepsis Screening Result: Possible Sepsis Risk - Focused Exam Vital Signs: Vital Signs Temp Resp BP Pulse Ox Pulse Ox 01/09/21 05:00 91 L 01/09/21 04:00 98 F 22 H 119/63 92 L 01/09/21 03:00 91 L 01/09/21 02:00 92 L 01/09/21 01:07 95 01/09/21 01:00 94 L 01/09/21 00:01 95 01/09/21 00:00 97.8 F 22 H 120/66 94 L 01/08/21 23:00 96 01/08/21 22:00 92 L 01/08/21 21:00 93 L - Problem List & Annotations (1) Diabetes mellitus type 2 in obese SNOMED Code(s): 54756169 Code(s): E11.69 - TYPE 2 DIABETES MELLITUS WITH OTHER SPECIFIED COMPLICATION; E66.9 - OBESITY, UNSPECIFIED Status: Acute Current Visit: Yes (2) HTN (hypertension) SNOMED Code(s): 30079040 Code(s): I10 - ESSENTIAL (PRIMARY) HYPERTENSION Status: Acute Current Visit: Yes (3) Respiratory failure with hypoxia SNOMED Code(s): 25702047315678309 Code(s): J96.91 - RESPIRATORY FAILURE, UNSPECIFIED WITH HYPOXIA Status: Acute Current Visit: Yes (4) Acute renal failure SNOMED Code(s): 56082386 Code(s): N17.9 - ACUTE KIDNEY FAILURE, UNSPECIFIED Status: Acute Current Visit: Yes (5) Pneumonia due to COVID-19 virus SNOMED Code(s): 241195134707281218 Code(s): U07.1 - COVID-19; J12.82 - PNEUMONIA DUE TO CORONAVIRUS DISEASE 2019 Status: Acute Current Visit: Yes - Problem List Review Problem List Initiated/Reviewed/Updated: Yes - My Orders Last 24 Hours: My Active Orders 01/08/21 07:55 BIPAP [RT BiPAP/CPAP] [] ASDIRECTED 01/08/21 09:00 Aspirin [Halfprin] 81 mg PO DAILY Tamsulosin [Flomax] 0.4 mg PO DAILY atenoloL [Tenormin] 50 mg PO DAILY dexAMETHasone 6 mg PO DAILY 01/08/21 10:37 Incentive Spirometry [RT Incentive Spirometry] [RC] ASDIRECTED 01/08/21 Lunch Regular Diet [DIET] 01/08/21 21:00 Famotidine [Pepcid] 20 mg IVPUSH BEDTIME 01/09/21 08:15 Sodium Chloride 0.9% [Normal Saline] 1,000 ml IV ASDIRECTED 01/09/21 09:00 Enoxaparin [Lovenox] 40 mg SUBCUT DAILY 01/09/21 10:00 Remdesivir 100 mg Sodium Chloride 0.9% [Normal Saline] 100 ml IV Q24H - Plan Plan:: 80-year-old male vaccinated with Pfizer vaccine presents in respiratory failure secondary to COVID-19 pneumonia COVID-19 pneumonia Respiratory failure with hypoxia * ICU * Currently on BiPAP * CRP increased to 6.6, albumin 2.6, D-dimer 1.34, WBC 6 * BNP 863. This is likely elevated partly due to renal failure and COVID-19. Also, he could have some degree of fluid overload based on the chest x-ray. May consider echocardiogram in the future. * Patient has overall very poor prognosis. * He request to be a full code. * Given dexamethasone, Rocephin, but remdesivir was held secondary to renal function in the emergency department * Chest x-ray shows bilateral infiltrates consistent with moderate Covid 19 pneumonia * EKG: Normal sinus rhythm, ventricular rate 77 bpm, left axis deviation. Acute renal failuredeteriorated * Creatinine increased to 1.7 but GFR is greater than 30 allowing us to start remdesivir * Most recent creatinine on file is from June 2019 and it was 1.1 with a GFR of greater than 60. * He may have some underlying diabetic nephropathy Type 2 diabetes * Presenting blood sugar 202 * Blood sugars are poorly controlled in the 200s and as high as 377 likely worsened by dexamethasone * Hemoglobin A1c 6.6 * Home meds include glipizide and Metformin per chart notes Anemia of chronic disease * Normochromic, normocytic anemia likely secondary to chronic disease * Hemoglobin 13, * Platelets 232 Hypertension * Home med list includes amlodipine, hydrochlorothiazide, losartan, And Cardura BPH * Home meds include Cardura and Flomax Plan * Transferred to ICU * BiPAP/HFNC to keep SPO2 above 87% * Continue dexamethasone 6 mg daily * Continue Rocephin for 5 days * Azithromycin 500 mg IV daily for 3 days * Continue remdesivir as long as GFR is greater than 30 * Give 500 mL of normal saline secondary to worsening renal function and increasing BUN to creatinine ratio * Follow labs closely * Pepcid 20 mg IV twice daily for GI protection * Respiratory therapy, Acapella, I-S * Albuterol/Atrovent nebs every 6 hours as needed * Albuterol every 2 hours as needed * Encourage proning * Sliding scale insulin * Follow CBC, CMP, mag, Phos, CRP, D-dimer * Get chest x-ray * VTE prophylaxis with Lovenox * CODE STATUS: Full code. I explained to the patient he is a very high risk for intubation and mortality, but I am not sure how much he understands.
[2021-01-09] MEDS: Dexamethasone 4 MG Tab PO SCH (08:54)
[2021-01-09] MEDS: Insulin Lispro 100 UNIT/ML 10 ML Vial SUBCUT SCH ×4 (08:54→21:07)
[2021-01-09] MEDS: Enoxaparin 40 MG/0.4 ML Syringe SUBCUT SCH (08:54)
[2021-01-09] MEDS: Tamsulosin 0.4 MG Cap.ER PO SCH (08:55)
[2021-01-09] MEDS: Atenolol 50 MG Tab PO SCH (08:55)
[2021-01-09] MEDS: Aspirin 81 MG Tab.EC PO SCH (08:55)
[2021-01-09] MEDS: REMDESIVIR 100 MG in Sodium Chloride 0.9% 100 ML IV SCH (10:26)
[2021-01-09] MEDS ORDERED: SODIUM CHLORIDE 0.9% IV ONE (12:00)
[2021-01-09] MEDS ORDERED: TOCILIZUMAB IV ONE (12:00)
[2021-01-09] MEDS ORDERED: Furosemide 20 MG/2 ML VIAL IVPUSH ONE (16:25)
[2021-01-09] MEDS: Insulin Glarg,Human.Rec.Analog 100 Unit/ML SUBCUT SCH (16:29)
[2021-01-09] MEDS: Acetaminophen/Codeine 300-30 MG Tab PO PRN ×2 (16:51→20:50)
[2021-01-09] MEDS: Benzonatate 100 MG Cap PO PRN (16:52)
[2021-01-09] MEDS: Famotidine 20 MG/2 ML SDV IVPUSH SCH (20:50)
[2021-01-10] MEDS: Enoxaparin 40 MG/0.4 ML Syringe SUBCUT SCH (08:27)
[2021-01-10] MEDS: Aspirin 81 MG Tab.EC PO SCH (08:29)
[2021-01-10] MEDS: Tamsulosin 0.4 MG Cap.ER PO SCH (08:29)
[2021-01-10] MEDS: Dexamethasone 4 MG Tab PO SCH (08:29)
[2021-01-10] MEDS: Insulin Glarg,Human.Rec.Analog 100 Unit/ML SUBCUT SCH (08:30)
[2021-01-10] MEDS: Insulin Lispro 100 UNIT/ML 10 ML Vial SUBCUT SCH ×5 (08:31→21:59)
[2021-01-10] MEDS: Atenolol 50 MG Tab PO SCH (08:32)
--- NOTE | 2021-01-10 08:51 | CR ---
Chest: Frontal view of the chest was obtained. Comparison: Prior chest x-ray of 01/07/21. Patchy areas of increased density are seen on both sides of the chest. Findings have slightly increased on the left side and slightly improved in the right upper lung. Heart size and mediastinum are within normal limits. Bony structures show nothing acute. Impression: 1. Slight worsening within the left chest and minimal improvement within the right upper chest. Findings are compatible with multifocal pneumonia. Please rule out COVID etiology. Diagnostic code #3 I agree with preliminary report from [facility], finalized on 01/09/21, 6:06 PM CDT, code 1
[2021-01-10] MEDS: Albuterol/Ipratropium 3.0-0.5 MG/3 ML Neb Soln NEB PRN ×3 (09:22→20:14)
[2021-01-10] MEDS: REMDESIVIR 100 MG in Sodium Chloride 0.9% 100 ML IV SCH (10:05)
--- NOTE | 2021-01-10 17:24 | PCM.PN ---
- General Info Date of Service: 01/10/21 Admission Dx/Problem (Free Text): Admission Diagnosis/Problem Admission Diagnosis/Problem Covid-19 Pneumonia Subjective Update: 80-year-old male with respiratory failure secondary to COVID-19 pneumonia. Patient continues to struggle with oxygen saturations. He is unable to remove his mask for more than a few seconds without dropping into the low 80s and upper 70s. Unfortunately, he still is a bit confused and will pull off his mask or remove it to scratch his nose. - Review of Systems General: Reports: Other (Unable to obtain secondary to mentation) - Patient Data Vitals - Most Recent: Last Vital Signs Temp 97.0 F 01/10/21 16:00 Pulse 60 01/09/21 08:55 Resp 19 01/10/21 16:00 BP 116/61 01/10/21 16:00 Pulse Ox 90 L 01/10/21 16:00 Weight - Most Recent: 209 lb 8 oz I&O - Last 24 Hours: Intake & Output 01/10/21 01/10/21 01/10/21 06:59 14:59 22:59 Intake Total 300 990 330 Output Total 600 810 75 Balance -300 180 255 Lab Results Last 24 Hours: Laboratory Results - last 24 hr 01/09/21 01/10/21 01/10/21 Range/Units 21:01 06:16 09:16 WBC 5.65 (4.23-9.07) K/mm3 RBC 4.85 (4.63-6.08) M/mm3 Hgb 14.1 (13.7-17.5) gm/dl Hct 42.1 (40.1-51.0) % MCV 86.8 (79.0-92.2) fl MCH 29.1 (25.7-32.2) pg MCHC 33.5 (32.2-35.5) g/dl RDW Std Deviation 44.0 H (35.1-43.9) fL Plt Count 145 L (163-337) K/mm3 MPV 10.8 (9.4-12.3) fl Neut % (Auto) 83.0 H (34.0-67.9) % Lymph % (Auto) 13.6 L (21.8-53.1) % Canadian % (Auto) 2.8 L (5.3-12.2) % Eos % (Auto) 0 L (0.8-7.0) Baso % (Auto) 0.2 (0.1-1.2) % Neut # (Auto) 4.69 (1.78-5.38) K/mm3 Lymph # (Auto) 0.77 L (1.32-3.57) K/mm3 Canadian # (Auto) 0.16 L (0.30-0.82) K/mm3 Eos # (Auto) 0.00 L (0.04-0.54) K/mm3 Baso # (Auto) 0.01 (0.01-0.08) K/mm3 Manual Slide Review Normal smear Sodium (136-145) mEq/L Potassium (3.5-5.1) mEq/L Chloride (98-107) mEq/L Carbon Dioxide (21-32) mEq/L Anion Gap (5-15) BUN (7-18) mg/dL Creatinine (0.7-1.3) mg/dL Est Cr Clr Drug Dosing mL/min Estimated GFR (MDRD) (>60) mL/min BUN/Creatinine Ratio (14-18) Glucose (70-99) mg/dL POC Glucose 215 H 202 H (70-99) mg/dL Calcium (8.5-10.1) mg/dL Phosphorus (2.6-4.7) mg/dL Magnesium (1.8-2.4) mg/dL Total Bilirubin (0.2-1.0) mg/dL AST (15-37) U/L ALT (16-63) U/L Alkaline Phosphatase (46-116) U/L C-Reactive Protein (<1.0) mg/dL Total Protein (6.4-8.2) g/dl Albumin (3.4-5.0) g/dl Globulin gm/dL Albumin/Globulin Ratio (1-2) 01/10/21 01/10/21 Range/Units 09:16 11:08 WBC (4.23-9.07) K/mm3 RBC (4.63-6.08) M/mm3 Hgb (13.7-17.5) gm/dl Hct (40.1-51.0) % MCV (79.0-92.2) fl MCH (25.7-32.2) pg MCHC (32.2-35.5) g/dl RDW Std Deviation (35.1-43.9) fL Plt Count (163-337) K/mm3 MPV (9.4-12.3) fl Neut % (Auto) (34.0-67.9) % Lymph % (Auto) (21.8-53.1) % Canadian % (Auto) (5.3-12.2) % Eos % (Auto) (0.8-7.0) Baso % (Auto) (0.1-1.2) % Neut # (Auto) (1.78-5.38) K/mm3 Lymph # (Auto) (1.32-3.57) K/mm3 Canadian # (Auto) (0.30-0.82) K/mm3 Eos # (Auto) (0.04-0.54) K/mm3 Baso # (Auto) (0.01-0.08) K/mm3 Manual Slide Review Sodium 141 (136-145) mEq/L Potassium 3.4 L (3.5-5.1) mEq/L Chloride 103 (98-107) mEq/L Carbon Dioxide 27 (21-32) mEq/L Anion Gap 14.4 (5-15) BUN 58 H (7-18) mg/dL Creatinine 1.4 H (0.7-1.3) mg/dL Est Cr Clr Drug Dosing 38.69 mL/min Estimated GFR (MDRD) 49 (>60) mL/min BUN/Creatinine Ratio 41.4 H (14-18) Glucose 243 H (70-99) mg/dL POC Glucose 233 H (70-99) mg/dL Calcium 7.6 L (8.5-10.1) mg/dL Phosphorus 4.5 (2.6-4.7) mg/dL Magnesium 2.2 (1.8-2.4) mg/dL Total Bilirubin 0.4 (0.2-1.0) mg/dL AST 39 H (15-37) U/L ALT 32 (16-63) U/L Alkaline Phosphatase 47 (46-116) U/L C-Reactive Protein 5.5 H* (<1.0) mg/dL Total Protein 6.2 L (6.4-8.2) g/dl Albumin 2.2 L (3.4-5.0) g/dl Globulin 4.0 gm/dL Albumin/Globulin Ratio 0.6 L (1-2) Med Orders - Current: Current Medications Acetaminophen (Acetaminophen 325 Mg Tab) 650 mg PO Q4H PRN PRN Reason: Pain (Mild 1-3)/fever Acetaminophen/Codeine Phosphate (Acetaminophen/Codeine 300-30 Mg Tab) 2 tab PO Q4H PRN PRN Reason: Cough Last Admin: 01/09/21 20:50 Dose: 2 tab Documented by: Albuterol/Ipratropium (Albuterol/Ipratropium 3.0-0.5 Mg/3 Ml Neb Soln) 3 ml NEB Q4H PRN PRN Reason: Shortness Of Breath/wheezing Last Admin: 01/10/21 14:06 Dose: 3 ml Documented by: Aspirin (Aspirin 81 Mg Tab.Ec) 81 mg PO DAILY [facility] Last Admin: 01/10/21 08:29 Dose: 81 mg Documented by: Atenolol (Atenolol 50 Mg Tab) 50 mg PO DAILY [facility] Last Admin: 01/10/21 08:32 Dose: Not Given Documented by: Benzonatate (Benzonatate 100 Mg Cap) 200 mg PO Q8H PRN PRN Reason: Cough Last Admin: 01/09/21 16:52 Dose: 200 mg Documented by: Dexamethasone (Dexamethasone 4 Mg Tab) 6 mg PO DAILY [facility] Stop: 01/16/21 09:01 Last Admin: 01/10/21 08:29 Dose: 6 mg Documented by: Enoxaparin Sodium (Enoxaparin 40 Mg/0.4 Ml Syringe) 40 mg SUBCUT DAILY [facility] Last Admin: 01/10/21 08:27 Dose: 40 mg Documented by: Famotidine (Famotidine 20 Mg/2 Ml Sdv) 20 mg IVPUSH BEDTIME [facility] Last Admin: 01/09/21 20:50 Dose: 20 mg Documented by: Remdesivir 100 mg/ Sodium (Chloride) 100 mls @ 100 mls/hr IV Q24H [facility] Stop: 01/12/21 10:59 Last Admin: 01/10/21 10:05 Dose: 100 mls/hr Documented by: Insulin Glargine (Insulin Glarg,Human.Rec.Analog 100 Unit/Ml) 10 unit SUBCUT DAILY [facility] Last Admin: 01/10/21 08:30 Dose: 10 units Documented by: Insulin Human Lispro (Insulin Lispro 100 Unit/Ml 10 Ml Vial) 0 unit SUBCUT QIDACANDBED [facility]; Protocol Last Admin: 01/10/21 11:18 Dose: 4 units Documented by: Ondansetron HCl (Ondansetron 4 Mg/2 Ml Sdv) 4 mg IV Q6H PRN PRN Reason: Nausea/Vomiting Sodium Chloride (Sodium Chloride 0.9% 10 Ml Syringe) 10 ml FLUSH ASDIRECTED PRN PRN Reason: Keep Vein Open Last Admin: 01/07/21 18:42 Dose: 10 ml Documented by: Tamsulosin HCl (Tamsulosin 0.4 Mg Cap.Er) 0.4 mg PO DAILY [facility] Last Admin: 01/10/21 08:29 Dose: 0.4 mg Documented by: Discontinued Medications Dexamethasone (Dexamethasone 4 Mg Tab) 6 mg PO ONETIME ONE Stop: 01/07/21 18:27 Last Admin: 01/07/21 18:42 Dose: 6 mg Documented by: Enoxaparin Sodium (Enoxaparin 30 Mg/0.3 Ml Syringe) 30 mg SUBCUT DAILY [facility] Last Admin: 01/08/21 08:23 Dose: 30 mg Documented by: Furosemide (Furosemide 20 Mg/2 Ml Vial) 20 mg IVPUSH NOW ONE Stop: 01/09/21 16:26 Last Admin: 01/09/21 16:51 Dose: 20 mg Documented by: Sodium Chloride (Normal Saline) 1,000 mls @ 100 mls/hr IV ASDIRECTED [facility] Stop: 01/08/21 07:29 Last Admin: 01/07/21 22:48 Dose: 100 mls/hr Documented by: Remdesivir 200 mg/ Sodium (Chloride) 250 mls @ 250 mls/hr IV ONETIME ONE Stop: 01/08/21 10:59 Last Admin: 01/08/21 10:24 Dose: 250 mls/hr Documented by: Potassium Chloride 10 meq/ (Premix) 100 mls @ 100 mls/hr IV Q1H [facility] Stop: 01/08/21 13:29 Last Admin: 01/08/21 13:57 Dose: 100 mls/hr Documented by: Sodium Chloride (Normal Saline) 1,000 mls @ 100 mls/hr IV ASDIRECTED [facility] Stop: 01/09/21 18:14 Last Admin: 01/09/21 10:25 Dose: 100 mls/hr Documented by: Tocilizumab 760 mg/ Sodium (Chloride) 100 mls @ 100 mls/hr IV ONETIME ONE Stop: 01/09/21 12:59 Last Admin: 01/09/21 11:39 Dose: 100 mls/hr Documented by: Insulin Human Lispro (Insulin Lispro 100 Unit/Ml 10 Ml Vial) 0 unit SUBCUT QIDACANDBED [facility]; Protocol - Exam Quality Assessment: Supplemental Oxygen (BiPAP) Urinary Catheter Total Time: 0Days 22Hours General: Alert HEENT: Pupils Equal Neck: Supple Lungs: Crackles (Bibasilar). No: Normal Respiratory Effort (Mild increase in effort) Cardiovascular: Regular Rate, Regular Rhythm GI/Abdominal Exam: Normal Bowel Sounds, Soft, Non-Tender, No Distention Extremities: Normal Inspection, Normal Range of Motion, Non-Tender, No Pedal Edema, Normal Capillary Refill Skin: Warm, Dry, Intact Psy/Mental Status: Alert, Normal Affect, Normal Mood - Patient Data Lab Results Last 24 hrs: Laboratory Results - last 24 hr 01/09/21 01/10/21 01/10/21 Range/Units 21:01 06:16 09:16 WBC 5.65 (4.23-9.07) K/mm3 RBC 4.85 (4.63-6.08) M/mm3 Hgb 14.1 (13.7-17.5) gm/dl Hct 42.1 (40.1-51.0) % MCV 86.8 (79.0-92.2) fl MCH 29.1 (25.7-32.2) pg MCHC 33.5 (32.2-35.5) g/dl RDW Std Deviation 44.0 H (35.1-43.9) fL Plt Count 145 L (163-337) K/mm3 MPV 10.8 (9.4-12.3) fl Neut % (Auto) 83.0 H (34.0-67.9) % Lymph % (Auto) 13.6 L (21.8-53.1) % Canadian % (Auto) 2.8 L (5.3-12.2) % Eos % (Auto) 0 L (0.8-7.0) Baso % (Auto) 0.2 (0.1-1.2) % Neut # (Auto) 4.69 (1.78-5.38) K/mm3 Lymph # (Auto) 0.77 L (1.32-3.57) K/mm3 Canadian # (Auto) 0.16 L (0.30-0.82) K/mm3 Eos # (Auto) 0.00 L (0.04-0.54) K/mm3 Baso # (Auto) 0.01 (0.01-0.08) K/mm3 Manual Slide Review Normal smear Sodium (136-145) mEq/L Potassium (3.5-5.1) mEq/L Chloride (98-107) mEq/L Carbon Dioxide (21-32) mEq/L Anion Gap (5-15) BUN (7-18) mg/dL Creatinine (0.7-1.3) mg/dL Est Cr Clr Drug Dosing mL/min Estimated GFR (MDRD) (>60) mL/min BUN/Creatinine Ratio (14-18) Glucose (70-99) mg/dL POC Glucose 215 H 202 H (70-99) mg/dL Calcium (8.5-10.1) mg/dL Phosphorus (2.6-4.7) mg/dL Magnesium (1.8-2.4) mg/dL Total Bilirubin (0.2-1.0) mg/dL AST (15-37) U/L ALT (16-63) U/L Alkaline Phosphatase (46-116) U/L C-Reactive Protein (<1.0) mg/dL Total Protein (6.4-8.2) g/dl Albumin (3.4-5.0) g/dl Globulin gm/dL Albumin/Globulin Ratio (1-2) 01/10/21 01/10/21 Range/Units 09:16 11:08 WBC (4.23-9.07) K/mm3 RBC (4.63-6.08) M/mm3 Hgb (13.7-17.5) gm/dl Hct (40.1-51.0) % MCV (79.0-92.2) fl MCH (25.7-32.2) pg MCHC (32.2-35.5) g/dl RDW Std Deviation (35.1-43.9) fL Plt Count (163-337) K/mm3 MPV (9.4-12.3) fl Neut % (Auto) (34.0-67.9) % Lymph % (Auto) (21.8-53.1) % Canadian % (Auto) (5.3-12.2) % Eos % (Auto) (0.8-7.0) Baso % (Auto) (0.1-1.2) % Neut # (Auto) (1.78-5.38) K/mm3 Lymph # (Auto) (1.32-3.57) K/mm3 Canadian # (Auto) (0.30-0.82) K/mm3 Eos # (Auto) (0.04-0.54) K/mm3 Baso # (Auto) (0.01-0.08) K/mm3 Manual Slide Review Sodium 141 (136-145) mEq/L Potassium 3.4 L (3.5-5.1) mEq/L Chloride 103 (98-107) mEq/L Carbon Dioxide 27 (21-32) mEq/L Anion Gap 14.4 (5-15) BUN 58 H (7-18) mg/dL Creatinine 1.4 H (0.7-1.3) mg/dL Est Cr Clr Drug Dosing 38.69 mL/min Estimated GFR (MDRD) 49 (>60) mL/min BUN/Creatinine Ratio 41.4 H (14-18) Glucose 243 H (70-99) mg/dL POC Glucose 233 H (70-99) mg/dL Calcium 7.6 L (8.5-10.1) mg/dL Phosphorus 4.5 (2.6-4.7) mg/dL Magnesium 2.2 (1.8-2.4) mg/dL Total Bilirubin 0.4 (0.2-1.0) mg/dL AST 39 H (15-37) U/L ALT 32 (16-63) U/L Alkaline Phosphatase 47 (46-116) U/L C-Reactive Protein 5.5 H* (<1.0) mg/dL Total Protein 6.2 L (6.4-8.2) g/dl Albumin 2.2 L (3.4-5.0) g/dl Globulin 4.0 gm/dL Albumin/Globulin Ratio 0.6 L (1-2) Result Diagrams: 01/10/21 09:16 01/10/21 09:16 Sepsis Event Note - Evaluation Sepsis Screening Result: Possible Sepsis Risk - Focused Exam Vital Signs: Vital Signs Temp Resp BP Pulse Ox Pulse Ox 01/10/21 16:00 97.0 F 19 116/61 90 L 01/10/21 12:00 96.8 F L 18 114/66 91 L 01/10/21 09:22 88 L 01/10/21 08:00 96.3 F L 16 136/63 88 L - Problem List & Annotations (1) Diabetes mellitus type 2 in obese SNOMED Code(s): 21896416 Code(s): E11.69 - TYPE 2 DIABETES MELLITUS WITH OTHER SPECIFIED COMPLICATION; E66.9 - OBESITY, UNSPECIFIED Status: Acute Current Visit: Yes (2) HTN (hypertension) SNOMED Code(s): 65951375 Code(s): I10 - ESSENTIAL (PRIMARY) HYPERTENSION Status: Acute Current Visit: Yes (3) Respiratory failure with hypoxia SNOMED Code(s): 25645056072575863 Code(s): J96.91 - RESPIRATORY FAILURE, UNSPECIFIED WITH HYPOXIA Status: Acute Current Visit: Yes (4) Acute renal failure SNOMED Code(s): 77819879 Code(s): N17.9 - ACUTE KIDNEY FAILURE, UNSPECIFIED Status: Acute Current Visit: Yes (5) Pneumonia due to COVID-19 virus SNOMED Code(s): 406274002133866175 Code(s): U07.1 - COVID-19; J12.82 - PNEUMONIA DUE TO CORONAVIRUS DISEASE 2019 Status: Acute Current Visit: Yes - Problem List Review Problem List Initiated/Reviewed/Updated: Yes - My Orders Last 24 Hours: My Active Orders 01/09/21 17:55 Urinary Catheter Assessment [RC] Q4H 01/09/21 18:00 Insert Urinary Catheter [OM.PC] Q24H 01/11/21 Echo Comp wo Cont [US] Routine 01/11/21 05:11 C-REACTIVE PROTEIN [CHEM] AM CBC WITH AUTO DIFF [HEME] AM CMP [COMPREHENSIVE METABOLIC PN,CMP] [CHEM] AM DD [D-DIMER QUANTITATIVE] [COAG] AM MAGNESIUM [CHEM] AM PHOSPHORUS [CHEM] AM - Plan Plan:: 80-year-old male vaccinated with Pfizer vaccine presents in respiratory failure secondary to COVID-19 pneumonia COVID-19 pneumonia Respiratory failure with hypoxia * ICU * Currently on BiPAP * CRP decreased to 5.5. albumin 2.2, WBC 5.7 * Given 1 dose of Lasix 20 mg IV yesterday * Patient has overall very poor prognosis. * He request to be a full code. * Given dexamethasone, Rocephin, but remdesivir was held secondary to renal function in the emergency department * Restarted in the ICU with improvement in renal function * Chest x-ray shows bilateral infiltrates consistent with moderate Covid 19 pneumonia * EKG: Normal sinus rhythm, ventricular rate 77 bpm, left axis deviation. * BiPAP 18/16 at 90% FiO2 Acute renal failureimproved * Creatinine increased to 1.4 but GFR is greater than 30 allowing us to continue remdesivir * Most recent creatinine on file is from June 2019 and it was 1.1 with a GFR of greater than 60. * He may have some underlying diabetic nephropathy * BUN 58 Type 2 diabetes * Presenting blood sugar 202 * Blood sugars are poorly controlled in the 200s and as high as 377 likely worsened by dexamethasone * Hemoglobin A1c 6.6 * Home meds include glipizide and Metformin per chart notes * Started on Lantus 10 units twice daily Anemia of chronic disease * Normochromic, normocytic anemia likely secondary to chronic disease * Hemoglobin 14, * Platelets 232 Hypertension * Home med list includes amlodipine, hydrochlorothiazide, losartan, And Cardura * Blood pressures well controlled BPH * Home meds include Cardura and Flomax Plan * Transferred to ICU * BiPAP/HFNC to keep SPO2 above 87% * Continue dexamethasone 6 mg daily * Continue Rocephin for 5 days * Azithromycin 500 mg IV daily for 3 days * Continue remdesivir * Follow labs closely * Pepcid 20 mg IV twice daily for GI protection * Respiratory therapy, Acapella, I-S * Albuterol/Atrovent nebs every 6 hours as needed * Albuterol every 2 hours as needed * Encourage proning * Sliding scale insulin * Follow CBC, CMP, mag, Phos, CRP, D-dimer * Get chest x-ray * VTE prophylaxis with Lovenox * CODE STATUS: Full code. I explained to the patient he is a very high risk for intubation and mortality, but I am not sure how much he understands.
--- NOTE | 2021-01-10 17:31 | PCM.SN.2 ---
- Free Text/Narrative Note: 2021-01-09 I spoke with patient to provide information about EUA of Actemra. I offered them the "fax sheet for patients and caregivers" for Actemra to read and review. I stated the therapy has been approved by an emergency use authorization process and has not been fully FDA reviewed or approved. I share potential risks from the therapy including allergic reactions, increased risk of secondary infections, or other reactions. Discussed there are other potential treatment options that are currently not FDA approved to treat COVID-19. Offered opportunity to ask questions and all questions were answered. Patient voiced understanding and agreed to proceed with treatment. Time Documentation
[2021-01-10] MEDS ORDERED: Temazepam 15 MG Cap PO PRN (18:56)
[2021-01-10] MEDS: Benzonatate 100 MG Cap PO PRN (20:28)
[2021-01-10] MEDS: Famotidine 20 MG/2 ML SDV IVPUSH SCH (20:28)
[2021-01-10] MEDS: Potassium Chloride 10 MEQ in Premix Bag 1 BAG IV SCH ×2 (20:49→21:33)
[2021-01-10] MEDS ORDERED: Insulin Glarg,Human.Rec.Analog 100 Unit/ML SUBCUT SCH (21:00)
[2021-01-10] MEDS ORDERED: Potassium Chloride 20 MEQ Tab.ER PO ONE (21:15)
[2021-01-10] MEDS: Acetaminophen/Codeine 300-30 MG Tab PO PRN (23:58)
[2021-01-11] MEDS ORDERED: LORazepam 2 MG/ML SDV IVPUSH ONE (03:00)
[2021-01-11] MEDS: LORazepam 2 MG/ML SDV IVPUSH PRN ×4 (05:54→22:45)
--- NOTE | 2021-01-11 07:56 | PCM.PN ---
- General Info Date of Service: 01/11/21 Admission Dx/Problem (Free Text): Admission Diagnosis/Problem Admission Diagnosis/Problem Covid-19 Pneumonia Subjective Update: 80-year-old male with respiratory failure secondary to COVID-19 pneumonia. Patient continues to struggle with oxygen saturations. He is still dropping in 80's with what appears to be a poor fitting bipap mask. we will address this. Getting echo this am Functional Status: Reports: Pain Controlled - Review of Systems General: Reports: Weakness, Fatigue, Malaise HEENT: Reports: No Symptoms Pulmonary: Reports: Shortness of Breath, Cough Cardiovascular: Reports: No Symptoms Gastrointestinal: Reports: No Symptoms Genitourinary: Reports: No Symptoms Musculoskeletal: Reports: No Symptoms Skin: Reports: No Symptoms Neurological: Reports: Confusion Psychiatric: Reports: Confusion, Anxiety, Agitation - Patient Data Vitals - Most Recent: Last Vital Signs Temp 97.6 F 01/11/21 04:00 Pulse 60 01/09/21 08:55 Resp 20 01/11/21 06:00 BP 101/57 L 01/11/21 04:00 Pulse Ox 88 L 01/11/21 06:00 Weight - Most Recent: 210 lb I&O - Last 24 Hours: Intake & Output 01/10/21 01/11/21 01/11/21 22:59 06:59 14:59 Intake Total 355 200 Output Total 495 350 Balance -140 -150 Lab Results Last 24 Hours: Laboratory Results - last 24 hr 01/10/21 01/10/21 01/10/21 Range/Units 09:16 09:16 11:08 WBC 5.65 (4.23-9.07) K/mm3 RBC 4.85 (4.63-6.08) M/mm3 Hgb 14.1 (13.7-17.5) gm/dl Hct 42.1 (40.1-51.0) % MCV 86.8 (79.0-92.2) fl MCH 29.1 (25.7-32.2) pg MCHC 33.5 (32.2-35.5) g/dl RDW Std Deviation 44.0 H (35.1-43.9) fL Plt Count 145 L (163-337) K/mm3 MPV 10.8 (9.4-12.3) fl Neut % (Auto) 83.0 H (34.0-67.9) % Lymph % (Auto) 13.6 L (21.8-53.1) % Mes[place] % (Auto) 2.8 L (5.3-12.2) % Eos % (Auto) 0 L (0.8-7.0) Baso % (Auto) 0.2 (0.1-1.2) % Neut # (Auto) 4.69 (1.78-5.38) K/mm3 Lymph # (Auto) 0.77 L (1.32-3.57) K/mm3 Mesa # (Auto) 0.16 L (0.30-0.82) K/mm3 Eos # (Auto) 0.00 L (0.04-0.54) K/mm3 Baso # (Auto) 0.01 (0.01-0.08) K/mm3 Manual Slide Review Normal smear Sodium 141 (136-145) mEq/L Potassium 3.4 L (3.5-5.1) mEq/L Chloride 103 (98-107) mEq/L Carbon Dioxide 27 (21-32) mEq/L Anion Gap 14.4 (5-15) BUN 58 H (7-18) mg/dL Creatinine 1.4 H (0.7-1.3) mg/dL Est Cr Clr Drug Dosing 38.69 mL/min Estimated GFR (MDRD) 49 (>60) mL/min BUN/Creatinine Ratio 41.4 H (14-18) Glucose 243 H (70-99) mg/dL POC Glucose 233 H (70-99) mg/dL Calcium 7.6 L (8.5-10.1) mg/dL Phosphorus 4.5 (2.6-4.7) mg/dL Magnesium 2.2 (1.8-2.4) mg/dL Total Bilirubin 0.4 (0.2-1.0) mg/dL AST 39 H (15-37) U/L ALT 32 (16-63) U/L Alkaline Phosphatase 47 (46-116) U/L C-Reactive Protein 5.5 H* (<1.0) mg/dL Total Protein 6.2 L (6.4-8.2) g/dl Albumin 2.2 L (3.4-5.0) g/dl Globulin 4.0 gm/dL Albumin/Globulin Ratio 0.6 L (1-2) 01/10/21 01/10/21 01/11/21 Range/Units 17:28 20:22 06:12 WBC (4.23-9.07) K/mm3 RBC (4.63-6.08) M/mm3 Hgb (13.7-17.5) gm/dl Hct (40.1-51.0) % MCV (79.0-92.2) fl MCH (25.7-32.2) pg MCHC (32.2-35.5) g/dl RDW Std Deviation (35.1-43.9) fL Plt Count (163-337) K/mm3 MPV (9.4-12.3) fl Neut % (Auto) (34.0-67.9) % Lymph % (Auto) (21.8-53.1) % [place] % (Auto) (5.3-12.2) % Eos % (Auto) (0.8-7.0) Baso % (Auto) (0.1-1.2) % Neut # (Auto) (1.78-5.38) K/mm3 Lymph # (Auto) (1.32-3.57) K/mm3 [place] # (Auto) (0.30-0.82) K/mm3 Eos # (Auto) (0.04-0.54) K/mm3 Baso # (Auto) (0.01-0.08) K/mm3 Manual Slide Review Sodium (136-145) mEq/L Potassium (3.5-5.1) mEq/L Chloride (98-107) mEq/L Carbon Dioxide (21-32) mEq/L Anion Gap (5-15) BUN (7-18) mg/dL Creatinine (0.7-1.3) mg/dL Est Cr Clr Drug Dosing mL/min Estimated GFR (MDRD) (>60) mL/min BUN/Creatinine Ratio (14-18) Glucose (70-99) mg/dL POC Glucose 335 H 330 H 224 H (70-99) mg/dL Calcium (8.5-10.1) mg/dL Phosphorus (2.6-4.7) mg/dL Magnesium (1.8-2.4) mg/dL Total Bilirubin (0.2-1.0) mg/dL AST (15-37) U/L ALT (16-63) U/L Alkaline Phosphatase (46-116) U/L C-Reactive Protein (<1.0) mg/dL Total Protein (6.4-8.2) g/dl Albumin (3.4-5.0) g/dl Globulin gm/dL Albumin/Globulin Ratio (1-2) Med Orders - Current: Current Medications Acetaminophen (Acetaminophen 325 Mg Tab) 650 mg PO Q4H PRN PRN Reason: Pain (Mild 1-3)/fever Acetaminophen/Codeine Phosphate (Acetaminophen/Codeine 300-30 Mg Tab) 2 tab PO Q4H PRN PRN Reason: Cough Last Admin: 01/10/21 23:58 Dose: 2 tab Documented by: Albuterol/Ipratropium (Albuterol/Ipratropium 3.0-0.5 Mg/3 Ml Neb Soln) 3 ml NEB Q4H PRN PRN Reason: Shortness Of Breath/wheezing Last Admin: 01/10/21 20:14 Dose: 3 ml Documented by: Aspirin (Aspirin 81 Mg Tab.Ec) 81 mg PO DAILY [facility] Last Admin: 01/10/21 08:29 Dose: 81 mg Documented by: Atenolol (Atenolol 50 Mg Tab) 50 mg PO DAILY [facility] Last Admin: 01/10/21 08:32 Dose: Not Given Documented by: Benzonatate (Benzonatate 100 Mg Cap) 200 mg PO Q8H PRN PRN Reason: Cough Last Admin: 01/10/21 20:28 Dose: 200 mg Documented by: Dexamethasone (Dexamethasone 4 Mg Tab) 6 mg PO DAILY [facility] Stop: 01/16/21 09:01 Last Admin: 01/10/21 08:29 Dose: 6 mg Documented by: Enoxaparin Sodium (Enoxaparin 40 Mg/0.4 Ml Syringe) 40 mg SUBCUT DAILY [facility] Last Admin: 01/10/21 08:27 Dose: 40 mg Documented by: Famotidine (Famotidine 20 Mg/2 Ml Sdv) 20 mg IVPUSH BEDTIME [facility] Last Admin: 01/10/21 20:28 Dose: 20 mg Documented by: Remdesivir 100 mg/ Sodium (Chloride) 100 mls @ 100 mls/hr IV Q24H [facility] Stop: 01/12/21 10:59 Last Admin: 01/10/21 10:05 Dose: 100 mls/hr Documented by: Insulin Glargine (Insulin Glarg,Human.Rec.Analog 100 Unit/Ml) 10 unit SUBCUT B ID [facility] Last Admin: 01/10/21 20:48 Dose: 10 units Documented by: Insulin Human Lispro (Insulin Lispro 100 Unit/Ml 10 Ml Vial) 0 unit SUBCUT QIDACANDBED [facility]; Protocol Last Admin: 01/10/21 21:59 Dose: Not Given Documented by: Lorazepam (Lorazepam 2 Mg/Ml Sdv) 1 mg IVPUSH Q2H PRN PRN Reason: Anxiety Last Admin: 01/11/21 05:54 Dose: 1 mg Documented by: Ondansetron HCl (Ondansetron 4 Mg/2 Ml Sdv) 4 mg IV Q6H PRN PRN Reason: Nausea/Vomiting Sodium Chloride (Sodium Chloride 0.9% 10 Ml Syringe) 10 ml FLUSH ASDIRECTED PRN PRN Reason: Keep Vein Open Last Admin: 01/07/21 18:42 Dose: 10 ml Documented by: Tamsulosin HCl (Tamsulosin 0.4 Mg Cap.Er) 0.4 mg PO DAILY [facility] Last Admin: 01/10/21 08:29 Dose: 0.4 mg Documented by: Discontinued Medications Dexamethasone (Dexamethasone 4 Mg Tab) 6 mg PO ONETIME ONE Stop: 01/07/21 18:27 Last Admin: 01/07/21 18:42 Dose: 6 mg Documented by: Enoxaparin Sodium (Enoxaparin 30 Mg/0.3 Ml Syringe) 30 mg SUBCUT DAILY [facility] Last Admin: 01/08/21 08:23 Dose: 30 mg Documented by: Furosemide (Furosemide 20 Mg/2 Ml Vial) 20 mg IVPUSH NOW ONE Stop: 01/09/21 16:26 Last Admin: 01/09/21 16:51 Dose: 20 mg Documented by: Sodium Chloride (Normal Saline) 1,000 mls @ 100 mls/hr IV ASDIRECTED [facility] Stop: 01/08/21 07:29 Last Admin: 01/07/21 22:48 Dose: 100 mls/hr Documented by: Remdesivir 200 mg/ Sodium (Chloride) 250 mls @ 250 mls/hr IV ONETIME ONE Stop: 01/08/21 10:59 Last Admin: 01/08/21 10:24 Dose: 250 mls/hr Documented by: Potassium Chloride 10 meq/ (Premix) 100 mls @ 100 mls/hr IV Q1H [facility] Stop: 01/08/21 13:29 Last Admin: 01/08/21 13:57 Dose: 100 mls/hr Documented by: Sodium Chloride (Normal Saline) 1,000 mls @ 100 mls/hr IV ASDIRECTED [facility] Stop: 01/09/21 18:14 Last Admin: 01/09/21 10:25 Dose: 100 mls/hr Documented by: Tocilizumab 760 mg/ Sodium (Chloride) 100 mls @ 100 mls/hr IV ONETIME ONE Stop: 01/09/21 12:59 Last Admin: 01/09/21 11:39 Dose: 100 mls/hr Documented by: Potassium Chloride 10 meq/ (Premix) 100 mls @ 100 mls/hr IV Q1H [facility] Stop: 01/10/21 22:14 Last Admin: 01/10/21 21:33 Dose: Not Given Documented by: Insulin Glargine (Insulin Glarg,Human.Rec.Analog 100 Unit/Ml) 10 unit SUBCUT DAILY [facility] Last Admin: 01/10/21 08:30 Dose: 10 units Documented by: Insulin Human Lispro (Insulin Lispro 100 Unit/Ml 10 Ml Vial) 0 unit SUBCUT QIDACANDBED [facility]; Protocol Lorazepam (Lorazepam 2 Mg/Ml Sdv) 1 mg IVPUSH ONETIME ONE Stop: 01/11/21 03:01 Last Admin: 01/11/21 03:07 Dose: 1 mg Documented by: Potassium Chloride (Potassium Chloride 20 Meq Tab.Er) 20 meq PO ONETIME ONE Stop: 01/10/21 21:16 Last Admin: 01/10/21 21:32 Dose: 20 meq Documented by: - Exam Quality Assessment: Supplemental Oxygen Urinary Catheter Total Time: 1Days 10Hours General: Alert, Moderate Distress HEENT: Pupils Equal, Pupils Reactive Neck: Supple Lungs: Decreased Breath Sounds, Rales, Rhonchi GI/Abdominal Exam: Normal Bowel Sounds Extremities: Normal Inspection Skin: Warm Neurological: No New Focal Deficit Psy/Mental Status: Anxious, Agitated, Other (aox1) - Patient Data Lab Results Last 24 hrs: Laboratory Results - last 24 hr 01/10/21 01/10/21 01/10/21 Range/Units 09:16 09:16 11:08 WBC 5.65 (4.23-9.07) K/mm3 RBC 4.85 (4.63-6.08) M/mm3 Hgb 14.1 (13.7-17.5) gm/dl Hct 42.1 (40.1-51.0) % MCV 86.8 (79.0-92.2) fl MCH 29.1 (25.7-32.2) pg MCHC 33.5 (32.2-35.5) g/dl RDW Std Deviation 44.0 H (35.1-43.9) fL Plt Count 145 L (163-337) K/mm3 MPV 10.8 (9.4-12.3) fl Neut % (Auto) 83.0 H (34.0-67.9) % Lymph % (Auto) 13.6 L (21.8-53.1) % [place] % (Auto) 2.8 L (5.3-12.2) % Eos % (Auto) 0 L (0.8-7.0) Baso % (Auto) 0.2 (0.1-1.2) % Neut # (Auto) 4.69 (1.78-5.38) K/mm3 Lymph # (Auto) 0.77 L (1.32-3.57) K/mm3 [place] # (Auto) 0.16 L (0.30-0.82) K/mm3 Eos # (Auto) 0.00 L (0.04-0.54) K/mm3 Baso # (Auto) 0.01 (0.01-0.08) K/mm3 Manual Slide Review Normal smear Sodium 141 (136-145) mEq/L Potassium 3.4 L (3.5-5.1) mEq/L Chloride 103 (98-107) mEq/L Carbon Dioxide 27 (21-32) mEq/L Anion Gap 14.4 (5-15) BUN 58 H (7-18) mg/dL Creatinine 1.4 H (0.7-1.3) mg/dL Est Cr Clr Drug Dosing 38.69 mL/min Estimated GFR (MDRD) 49 (>60) mL/min BUN/Creatinine Ratio 41.4 H (14-18) Glucose 243 H (70-99) mg/dL POC Glucose 233 H (70-99) mg/dL Calcium 7.6 L (8.5-10.1) mg/dL Phosphorus 4.5 (2.6-4.7) mg/dL Magnesium 2.2 (1.8-2.4) mg/dL Total Bilirubin 0.4 (0.2-1.0) mg/dL AST 39 H (15-37) U/L ALT 32 (16-63) U/L Alkaline Phosphatase 47 (46-116) U/L C-Reactive Protein 5.5 H* (<1.0) mg/dL Total Protein 6.2 L (6.4-8.2) g/dl Albumin 2.2 L (3.4-5.0) g/dl Globulin 4.0 gm/dL Albumin/Globulin Ratio 0.6 L (1-2) 01/10/21 01/10/21 01/11/21 Range/Units 17:28 20:22 06:12 WBC (4.23-9.07) K/mm3 RBC (4.63-6.08) M/mm3 Hgb (13.7-17.5) gm/dl Hct (40.1-51.0) % MCV (79.0-92.2) fl MCH (25.7-32.2) pg MCHC (32.2-35.5) g/dl RDW Std Deviation (35.1-43.9) fL Plt Count (163-337) K/mm3 MPV (9.4-12.3) fl Neut % (Auto) (34.0-67.9) % Lymph % (Auto) (21.8-53.1) % [place] % (Auto) (5.3-12.2) % Eos % (Auto) (0.8-7.0) Baso % (Auto) (0.1-1.2) % Neut # (Auto) (1.78-5.38) K/mm3 Lymph # (Auto) (1.32-3.57) K/mm3 [place] # (Auto) (0.30-0.82) K/mm3 Eos # (Auto) (0.04-0.54) K/mm3 Baso # (Auto) (0.01-0.08) K/mm3 Manual Slide Review Sodium (136-145) mEq/L Potassium (3.5-5.1) mEq/L Chloride (98-107) mEq/L Carbon Dioxide (21-32) mEq/L Anion Gap (5-15) BUN (7-18) mg/dL Creatinine (0.7-1.3) mg/dL Est Cr Clr Drug Dosing mL/min Estimated GFR (MDRD) (>60) mL/min BUN/Creatinine Ratio (14-18) Glucose (70-99) mg/dL POC Glucose 335 H 330 H 224 H (70-99) mg/dL Calcium (8.5-10.1) mg/dL Phosphorus (2.6-4.7) mg/dL Magnesium (1.8-2.4) mg/dL Total Bilirubin (0.2-1.0) mg/dL AST (15-37) U/L ALT (16-63) U/L Alkaline Phosphatase (46-116) U/L C-Reactive Protein (<1.0) mg/dL Total Protein (6.4-8.2) g/dl Albumin (3.4-5.0) g/dl Globulin gm/dL Albumin/Globulin Ratio (1-2) Result Diagrams: 01/11/21 07:55 01/11/21 07:55 Sepsis Event Note - Evaluation Sepsis Screening Result: Possible Sepsis Risk - Focused Exam Vital Signs: Vital Signs Temp Resp BP Pulse Ox Pulse Ox 01/11/21 06:00 20 88 L 01/11/21 05:12 91 L 01/11/21 05:00 18 89 L 01/11/21 04:01 19 88 L 01/11/21 04:00 97.6 F 19 101/57 L 88 L 01/11/21 02:00 24 H 92 L 01/11/21 01:00 18 95 01/11/21 00:11 91 L 01/11/21 00:00 97.4 F 20 150/77 H 95 01/10/21 22:12 17 90 L 01/10/21 22:00 19 91 L 92 L 01/10/21 21:00 18 92 L 01/10/21 20:15 91 L 01/10/21 20:00 97.6 F 18 138/77 90 L - Problem List Review Problem List Initiated/Reviewed/Updated: Yes - Plan Plan:: 80-year-old male vaccinated with Pfizer vaccine presents in respiratory failure secondary to COVID-19 pneumonia COVID-19 pneumonia Respiratory failure with hypoxia * ICU * Currently on BiPAP * CRP decreased to 5.5. albumin 2.2, WBC 5.7 * Given 1 dose of Lasix 20 mg IV yesterday * Patient has overall very poor prognosis. * He request to be a full code. * Given dexamethasone, Rocephin, but remdesivir was held secondary to renal function in the emergency department * Restarted in the ICU with improvement in renal function * Chest x-ray shows bilateral infiltrates consistent with moderate Covid 19 pneumonia * EKG: Normal sinus rhythm, ventricular rate 77 bpm, left axis deviation. * BiPAP 18/16 at 90% FiO2 01/11 poor fitting BiPAP mask and will need to replace today. Echo this morning. Increased need for oxygen demand. Increased confusion. Concern for possible clotting due to D-dimer increased to 4.57. We have increased him to heparin 7500 3 times daily. We would like to get a CT chest but he is uncooperative and agitated. If he continues to desaturate we may need to assume there is a PE and start him on a heparin drip if he does not start to cooperate better. Have started him with Seroquel 20 5 AM, 100 every afternoon and we have also started him on Mucinex. Elevated CRp. continue in ICU. Bipap 88-92%, dex, rocephin, azith, Continue remdesivir, Respiratory therapy, Acapella, I-S, Albu terol/Atrovent nebs every 6 hours as needed, Albuterol every 2 hours as needed, Encourage proning Acute renal failureimproved * Creatinine increased to 1.4 but GFR is greater than 30 allowing us to continue remdesivir * Most recent creatinine on file is from June 2019 and it was 1.1 with a GFR of greater than 60. * He may have some underlying diabetic nephropathy * BUN 58 01/11 similar to yesterday, following daily labs. Type 2 diabetes * Presenting blood sugar 202 * Blood sugars are poorly controlled in the 200s and as high as 377 likely worsened by dexamethasone * Hemoglobin A1c 6.6 * Home meds include glipizide and Metformin per chart notes * Started on Lantus 10 units twice daily 01/11 still has elevated blood glucose levels. Patient has a gap of 14.4. If this increases we will have to start him on a drip. I have started him on an increased dose of Lantus 15 units twice daily and continued sliding scale at medium. Anemia of chronic disease * Normochromic, normocytic anemia likely secondary to chronic disease * Hemoglobin 14, * Platelets 232 Hypertension * Home med list includes amlodipine, hydrochlorothiazide, losartan, And Cardura * Blood pressures well controlled 01/11 controlled BPH * Home meds include Cardura and Flomax * VTE prophylaxis with Lovenox * CODE STATUS: Full code. I explained to the patient he is a very high risk for intubation and mortality, but I am not sure how much he understands.
[2021-01-11] MEDS: Insulin Lispro 100 UNIT/ML 10 ML Vial SUBCUT SCH ×4 (09:00→21:09)
[2021-01-11] MEDS: Dexamethasone 4 MG Tab PO SCH (09:01)
[2021-01-11] MEDS: Tamsulosin 0.4 MG Cap.ER PO SCH ×2 (09:01→16:55)
[2021-01-11] MEDS: Atenolol 50 MG Tab PO SCH (09:02)
[2021-01-11] MEDS: Aspirin 81 MG Tab.EC PO SCH (09:02)
[2021-01-11] MEDS: QUEtiapine 25 MG Tab PO SCH (09:18)
[2021-01-11] MEDS: guaiFENesin 600 MG Tab.ER PO SCH ×2 (09:18→20:28)
[2021-01-11] MEDS: Heparin Sodium 5,000 Units/ML Vial IVPUSH SCH ×2 (09:19→18:34)
[2021-01-11] MEDS: REMDESIVIR 100 MG in Sodium Chloride 0.9% 100 ML IV SCH (09:19)
[2021-01-11] MEDS: Albuterol/Ipratropium 3.0-0.5 MG/3 ML Neb Soln NEB PRN ×2 (09:20→20:38)
[2021-01-11] MEDS: Insulin Glarg,Human.Rec.Analog 100 Unit/ML SUBCUT SCH ×2 (10:18→21:09)
--- NOTE | 2021-01-11 11:32 | CR ---
Chest: Portable view of the chest was obtained. Comparison: Prior chest x-ray of 01/09/21. Patchy areas of increased density are seen on both sides of the chest. Findings are fairly stable from prior chest x-ray. Heart size is within normal limits for portable technique. Slight tortuosity of the thoracic aorta is seen. Bony structures show nothing acute. Impression: 1. Stable chest x-ray from prior chest x-ray performed on 01/09/21. Diagnostic code #3
[2021-01-11] MEDS: Famotidine 20 MG/2 ML SDV IVPUSH SCH (20:28)
[2021-01-11] MEDS ORDERED: QUEtiapine 100 MG Tab PO SCH (21:00)
[2021-01-12] MEDS: Heparin Sodium 5,000 Units/ML Vial IVPUSH SCH ×3 (01:02→17:30)
[2021-01-12] MEDS: LORazepam 2 MG/ML SDV IVPUSH PRN (02:00)
[2021-01-12] MEDS: Albuterol/Ipratropium 3.0-0.5 MG/3 ML Neb Soln NEB PRN ×3 (05:21→12:45)
[2021-01-12] MEDS: Insulin Lispro 100 UNIT/ML 10 ML Vial SUBCUT SCH ×4 (08:48→21:35)
[2021-01-12] MEDS: Insulin Glarg,Human.Rec.Analog 100 Unit/ML SUBCUT SCH ×2 (08:57→21:34)
[2021-01-12] MEDS: REMDESIVIR 100 MG in Sodium Chloride 0.9% 100 ML IV SCH (09:01)
[2021-01-12] MEDS: guaiFENesin 600 MG Tab.ER PO SCH (09:08)
[2021-01-12] MEDS: QUEtiapine 25 MG Tab PO SCH (09:08)
[2021-01-12] MEDS: Dexamethasone 4 MG Tab PO SCH (09:08)
[2021-01-12] MEDS: Tamsulosin 0.4 MG Cap.ER PO SCH (09:08)
[2021-01-12] MEDS: Aspirin 81 MG Tab.EC PO SCH (09:08)
[2021-01-12] MEDS: Atenolol 50 MG Tab PO SCH (09:09)
[2021-01-12] MEDS ORDERED: hydrALAZINE 20 MG/ML SDV IVPUSH PRN (09:30)
[2021-01-12] MEDS: OLANZapine 10 MG Vial IM PRN (09:40)
--- NOTE | 2021-01-12 10:03 | PCM.PN ---
- General Info Date of Service: 01/12/21 Admission Dx/Problem (Free Text): Admission Diagnosis/Problem Admission Diagnosis/Problem Covid-19 Pneumonia Subjective Update: 80-year-old male with respiratory failure secondary to COVID-19 pneumonia. Patient continues to struggle with oxygen saturations. He is still dropping in 80's with what appears to be a poor fitting bipap mask. we will address this. Getting echo this am Functional Status: Reports: Pain Controlled - Patient Data Vitals - Most Recent: Last Vital Signs Temp 96.5 F L 01/12/21 08:00 Pulse 79 01/12/21 08:00 Resp 27 H 01/12/21 08:00 BP 160/82 H 01/12/21 08:00 Pulse Ox 94 L 01/12/21 08:00 Weight - Most Recent: 206 lb I&O - Last 24 Hours: Intake & Output 01/11/21 01/12/21 01/12/21 22:59 06:59 14:59 Intake Total 100 0 Output Total 600 425 445 Balance -071 -225 -445 Lab Results Last 24 Hours: Laboratory Results - last 24 hr 01/11/21 01/11/21 01/11/21 Range/Units 11:27 17:41 20:38 WBC (4.23-9.07) K/mm3 RBC (4.63-6.08) M/mm3 Hgb (13.7-17.5) gm/dl Hct (40.1-51.0) % MCV (79.0-92.2) fl MCH (25.7-32.2) pg MCHC (32.2-35.5) g/dl RDW Std Deviation (35.1-43.9) fL Plt Count (163-337) K/mm3 MPV (9.4-12.3) fl POC Glucose 214 H 224 H 241 H (70-99) mg/dL 01/12/21 01/12/21 Range/Units 08:42 08:48 WBC 9.72 H (4.23-9.07) K/mm3 RBC 5.66 (4.63-6.08) M/mm3 Hgb 16.2 D (13.7-17.5) gm/dl Hct 48.9 (40.1-51.0) % MCV 86.4 (79.0-92.2) fl MCH 28.6 (25.7-32.2) pg MCHC 33.1 (32.2-35.5) g/dl RDW Std Deviation 43.7 (35.1-43.9) fL Plt Count 176 (163-337) K/mm3 MPV 11.2 (9.4-12.3) fl POC Glucose 187 H (70-99) mg/dL Med Orders - Current: Current Medications Albuterol/Ipratropium (Albuterol/Ipratropium 3.0-0.5 Mg/3 Ml Neb Soln) 3 ml NEB Q4H PRN PRN Reason: Shortness Of Breath/wheezing Last Admin: 01/12/21 09:55 Dose: 3 ml Documented by: Dexamethasone (Dexamethasone 4 Mg Tab) 6 mg PO DAILY [facility] Stop: 01/16/21 09:01 Last Admin: 01/12/21 09:08 Dose: Not Given Documented by: Famotidine (Famotidine 20 Mg/2 Ml Sdv) 20 mg IVPUSH BEDTIME [facility] Last Admin: 01/11/21 20:28 Dose: 20 mg Documented by: Heparin Sodium (Porcine) (Heparin Sodium 5,000 Units/Ml Vial) 7,500 units IVPUSH Q8H [facility] Last Admin: 01/12/21 08:57 Dose: 7,500 units Documented by: Hydralazine HCl (Hydralazine 20 Mg/Ml Sdv) 10 mg IVPUSH Q4H PRN PRN Reason: Hypertension Remdesivir 100 mg/ Sodium (Chloride) 100 mls @ 100 mls/hr IV Q24H [facility] Stop: 01/12/21 10:59 Last Admin: 01/12/21 09:01 Dose: 100 mls/hr Documented by: Insulin Glargine (Insulin Glarg,Human.Rec.Analog 100 Unit/Ml) 15 unit SUBCUT BID [facility] Last Admin: 01/12/21 08:57 Dose: 15 units Documented by: Insulin Human Lispro (Insulin Lispro 100 Unit/Ml 10 Ml Vial) 0 unit SUBCUT QIDACANDBED [facility]; Protocol Last Admin: 01/12/21 08:48 Dose: 4 units Documented by: Olanzapine (Olanzapine 10 Mg Vial) 10 mg IM BID PRN PRN Reason: Agitation Last Admin: 01/12/21 09:40 Dose: 10 mg Documented by: Ondansetron HCl (Ondansetron 4 Mg/2 Ml Sdv) 4 mg IV Q6H PRN PRN Reason: Nausea/Vomiting Sodium Chloride (Sodium Chloride 0.9% 10 Ml Syringe) 10 ml FLUSH ASDIRECTED PRN PRN Reason: Keep Vein Open Last Admin: 01/07/21 18:42 Dose: 10 ml Documented by: Discontinued Medications Acetaminophen (Acetaminophen 325 Mg Tab) 650 mg PO Q4H PRN PRN Reason: Pain (Mild 1-3)/fever Acetaminophen/Codeine Phosphate (Acetaminophen/Codeine 300-30 Mg Tab) 2 tab PO Q4H PRN PRN Reason: Cough Last Admin: 01/10/21 23:58 Dose: 2 tab Documented by: Aspirin (Aspirin 81 Mg Tab.Ec) 81 mg PO DAILY [facility] Last Admin: 01/12/21 09:08 Dose: Not Given Documented by: Atenolol (Atenolol 50 Mg Tab) 50 mg PO DAILY [facility] Last Admin: 01/12/21 09:09 Dose: Not Given Documented by: Benzonatate (Benzonatate 100 Mg Cap) 200 mg PO Q8H PRN PRN Reason: Cough Last Admin: 01/10/21 20:28 Dose: 200 mg Documented by: Dexamethasone (Dexamethasone 4 Mg Tab) 6 mg PO ONETIME ONE Stop: 01/07/21 18:27 Last Admin: 01/07/21 18:42 Dose: 6 mg Documented by: Enoxaparin Sodium (Enoxaparin 30 Mg/0.3 Ml Syringe) 30 mg SUBCUT DAILY [facility] Last Admin: 01/08/21 08:23 Dose: 30 mg Documented by: Enoxaparin Sodium (Enoxaparin 40 Mg/0.4 Ml Syringe) 40 mg SUBCUT DAILY [facility] Last Admin: 01/10/21 08:27 Dose: 40 mg Documented by: Furosemide (Furosemide 20 Mg/2 Ml Vial) 20 mg IVPUSH NOW ONE Stop: 01/09/21 16:26 Last Admin: 01/09/21 16:51 Dose: 20 mg Documented by: Guaifenesin (Guaifenesin 600 Mg Tab.Er) 600 mg PO BID [facility] Last Admin: 01/12/21 09:08 Dose: Not Given Documented by: Sodium Chloride (Normal Saline) 1,000 mls @ 100 mls/hr IV ASDIRECTED [facility] Stop: 01/08/21 07:29 Last Admin: 01/07/21 22:48 Dose: 100 mls/hr Documented by: Remdesivir 200 mg/ Sodium (Chloride) 250 mls @ 250 mls/hr IV ONETIME ONE Stop: 01/08/21 10:59 Last Admin: 01/08/21 10:24 Dose: 250 mls/hr Documented by: Potassium Chloride 10 meq/ (Premix) 100 mls @ 100 mls/hr IV Q1H [facility] Stop: 01/08/21 13:29 Last Admin: 01/08/21 13:57 Dose: 100 mls/hr Documented by: Sodium Chloride (Normal Saline) 1,000 mls @ 100 mls/hr IV ASDIRECTED [facility] Stop: 01/09/21 18:14 Last Admin: 01/09/21 10:25 Dose: 100 mls/hr Documented by: Tocilizumab 760 mg/ Sodium (Chloride) 100 mls @ 100 mls/hr IV ONETIME ONE Stop: 01/09/21 12:59 Last Admin: 01/09/21 11:39 Dose: 100 mls/hr Documented by: Potassium Chloride 10 meq/ (Premix) 100 mls @ 100 mls/hr IV Q1H [facility] Stop: 01/10/21 22:14 Last Admin: 01/10/21 21:33 Dose: Not Given Documented by: Insulin Glargine (Insulin Glarg,Human.Rec.Analog 100 Unit/Ml) 10 unit SUBCUT DAILY [facility] Last Admin: 01/10/21 08:30 Dose: 10 units Documented by: Insulin Glargine (Insulin Glarg,Human.Rec.Analog 100 Unit/Ml) 10 unit SUBCUT BID [facility] Last Admin: 01/10/21 20:48 Dose: 10 units Documented by: Insulin Human Lispro (Insulin Lispro 100 Unit/Ml 10 Ml Vial) 0 unit SUBCUT QIDACANDBED [facility]; Protocol Last Admin: 01/11/21 09:00 Dose: 4 units Documented by: Insulin Human Lispro (Insulin Lispro 100 Unit/Ml 10 Ml Vial) 0 unit SUBCUT QIDACANDBED [facility]; Protocol Lorazepam (Lorazepam 2 Mg/Ml Sdv) 1 mg IVPUSH ONETIME ONE Stop: 01/11/21 03:01 Last Admin: 01/11/21 03:07 Dose: 1 mg Documented by: Lorazepam (Lorazepam 2 Mg/Ml Sdv) 1 mg IVPUSH Q2H PRN PRN Reason: Anxiety Last Admin: 01/12/21 02:00 Dose: 1 mg Documented by: Potassium Chloride (Potassium Chloride 20 Meq Tab.Er) 20 meq PO ONETIME ONE Stop: 01/10/21 21:16 Last Admin: 01/10/21 21:32 Dose: 20 meq Documented by: Quetiapine Fumarate (Quetiapine 100 Mg Tab) 100 mg PO BEDTIME [facility] Last Admin: 01/11/21 20:28 Dose: 100 mg Documented by: Quetiapine Fumarate (Quetiapine 25 Mg Tab) 25 mg PO DAILY [facility] Last Admin: 01/12/21 09:08 Dose: Not Given Documented by: Tamsulosin HCl (Tamsulosin 0.4 Mg Cap.Er) 0.4 mg PO DAILY [facility] Last Admin: 01/12/21 09:08 Dose: Not Given Documented by: - Exam Quality Assessment: Supplemental Oxygen (bipap) Urinary Catheter Total Time: 2Days 14Hours General: Alert (uncooperative, confused), Lethargic HEENT: Pupils Equal Neck: Supple Lungs: Decreased Breath Sounds, Rales GI/Abdominal Exam: Normal Bowel Sounds Back Exam: Normal Inspection Extremities: Normal Inspection Skin: Cool (bilateral legs, uncovered) Psy/Mental Status: Anxious, Agitated, Other (comfused) - Patient Data Lab Results Last 24 hrs: Laboratory Results - last 24 hr 01/11/21 01/11/21 01/11/21 Range/Units 11:27 17:41 20:38 WBC (4.23-9.07) K/mm3 RBC (4.63-6.08) M/mm3 Hgb (13.7-17.5) gm/dl Hct (40.1-51.0) % MCV (79.0-92.2) fl MCH (25.7-32.2) pg MCHC (32.2-35.5) g/dl RDW Std Deviation (35.1-43.9) fL Plt Count (163-337) K/mm3 MPV (9.4-12.3) fl POC Glucose 214 H 224 H 241 H (70-99) mg/dL 01/12/21 01/12/21 Range/Units 08:42 08:48 WBC 9.72 H (4.23-9.07) K/mm3 RBC 5.66 (4.63-6.08) M/mm3 Hgb 16.2 D (13.7-17.5) gm/dl Hct 48.9 (40.1-51.0) % MCV 86.4 (79.0-92.2) fl MCH 28.6 (25.7-32.2) pg MCHC 33.1 (32.2-35.5) g/dl RDW Std Deviation 43.7 (35.1-43.9) fL Plt Count 176 (163-337) K/mm3 MPV 11.2 (9.4-12.3) fl POC Glucose 187 H (70-99) mg/dL Result Diagrams: 01/12/21 08:48 01/11/21 07:55 Sepsis Event Note - Evaluation Sepsis Screening Result: Possible Sepsis Risk - Focused Exam Vital Signs: Vital Signs Temp Pulse Resp BP Pulse Ox Pulse Ox 01/12/21 08:00 96.5 F L 79 27 H 160/82 H 94 L 01/12/21 06:00 26 H 88 L 01/12/21 05:21 86 L 01/12/21 05:00 18 90 L 01/12/21 04:00 97.8 F 21 H 147/83 H 96 01/12/21 03:00 10 L 88 L 01/12/21 02:00 20 81 L 01/12/21 01:00 16 97 01/12/21 00:00 97.6 F 18 128/78 95 01/11/21 23:00 24 H 95 - Problem List Review Problem List Initiated/Reviewed/Updated: Yes - My Orders Last 24 Hours: My Active Orders 01/11/21 09:30 Insulin Glarg,Human.Rec.Analog [LantUS] 15 unit SUBCUT BID 01/11/21 11:00 Insulin Lispro [HumaLOG] See Protocol SUBCUT QIDACANDBED 01/11/21 17:05 C-REACTIVE PROTEIN [CHEM] Routine 01/11/21 21:00 Initiate/Renew Non-Violent Restraints (All Ages) Q24H 01/11/21 21:01 Nrsg Assess Restraint Init/Mon [RC] Q2HR 01/12/21 08:48 CMP [COMPREHENSIVE METABOLIC PN,CMP] [CHEM] AM 01/12/21 09:30 OLANZapine [ZyPREXA] 10 mg IM BID PRN hydrALAZINE [Apresoline] 10 mg IVPUSH Q4H PRN 01/14/21 07:00 CBC W/O DIFF,HEMOGRAM [HEME] MOTH@0700 01/18/21 07:00 CBC W/O DIFF,HEMOGRAM [HEME] MOTH@0701/21/21 07:00 CBC W/O DIFF,HEMOGRAM [HEME] MOTH@69901/25/21 07:00 CBC W/O DIFF,HEMOGRAM [HEME] MOTH@00 01/28/21 07:00 CBC W/O DIFF,HEMOGRAM [HEME] MOTH@69902/01/21 07:00 CBC W/O DIFF,HEMOGRAM [HEME] MOTH@699 - Plan Plan:: 80-year-old male vaccinated with Pfizer vaccine presents in respiratory failure secondary to COVID-19 pneumonia COVID-19 pneumonia Respiratory failure with hypoxia * ICU * Currently on BiPAP * CRP decreased to 5.5. albumin 2.2, WBC 5.7 * Given 1 dose of Lasix 20 mg IV yesterday * Patient has overall very poor prognosis. * He request to be a full code. * Given dexamethasone, Rocephin, but remdesivir was held secondary to renal function in the emergency department * Restarted in the ICU with improvement in renal function * Chest x-ray shows bilateral infiltrates consistent with moderate Covid 19 p neumonia * EKG: Normal sinus rhythm, ventricular rate 77 bpm, left axis deviation. * BiPAP 18/ at 90% FiO2 01/11 poor fitting BiPAP mask and will need to replace today. Echo this morning. Increased need for oxygen demand. Increased confusion. Concern for possible clotting due to D-dimer increased to 4.57. We have increased him to heparin 7500 3 times daily. We would like to get a CT chest but he is uncooperative and agitated. If he continues to desaturate we may need to assume there is a PE and start him on a heparin drip if he does not start to cooperate better. Have started him with Seroquel 20 5 AM, 100 every afternoon and we have also started him on Mucinex. Elevated CRp. continue in ICU. Bipap 88-92%, dex, rocephin, azith, Continue remdesivir, Respiratory therapy, Acapella, I-S, Albuterol/Atrovent nebs every 6 hours as needed, Albuterol every 2 hours as needed, Encourage proning 01/12/21 continued to have issues overnight with keeping bipap on, now resting and replaced. He is unable to swallow or follow commands. he had several doses of ativan overnight due to the severity of the agitation. We are given Zyprexa IM and removed all po for now and if orientated better we will add oral back. had Conversation with family [facility] [place]. Acute renal failureimproved * Creatinine increased to 1.4 but GFR is greater than 30 allowing us to continue remdesivir * Most recent creatinine on file is from June 2019 and it was 1.1 with a GFR of greater than 60. * He may have some underlying diabetic nephropathy * BUN 58 01/11 similar to yesterday, following daily labs. Type 2 diabetes * Presenting blood sugar 202 * Blood sugars are poorly controlled in the 200s and as high as 377 likely worsened by dexamethasone * Hemoglobin A1c 6.6 * Home meds include glipizide and Metformin per chart notes * Started on Lantus 10 units twice daily 01/11 still has elevated blood glucose levels. Patient has a gap of 14.4. If this increases we will have to start him on a drip. I have started him on an increased dose of Lantus 15 units twice daily and continued sliding scale at medium. Anemia of chronic disease * Normochromic, normocytic anemia likely secondary to chronic disease * Hemoglobin 14, * Platelets 232 Hypertension * Home med list includes amlodipine, hydrochlorothiazide, losartan, And Cardura * Blood pressures well controlled 01/11 controlled BPH * Home meds include Cardura and Flomax * VTE prophylaxis with Lovenox * CODE STATUS: Full code. I explained to the patient he is a very high risk for intubation and mortality, but I am not sure how much he understands.
[2021-01-12] MEDS ORDERED: Dexamethasone 4 MG/ML SDV PO SCH (11:00)
[2021-01-12] MEDS ORDERED: Haloperidol Lactate 5 MG/ML SDV IVPUSH PRN (11:32)
[2021-01-12] MEDS: Haloperidol Lactate 5 MG/ML SDV IVPUSH PRN ×2 (12:07→22:57)
[2021-01-12] MEDS ORDERED: Sodium Chloride 0.9% 1,000 ML IV SCH (14:00)
[2021-01-12] MEDS: Famotidine 20 MG/2 ML SDV IVPUSH SCH (21:34)
[2021-01-13] MEDS: OLANZapine 10 MG Vial IM PRN ×2 (00:35→08:33)
[2021-01-13] MEDS: Heparin Sodium 5,000 Units/ML Vial IVPUSH SCH ×2 (00:35→08:18)
[2021-01-13] MEDS ORDERED: Dexamethasone 4 MG/ML SDV IV SCH (07:31)
[2021-01-13] MEDS: Haloperidol Lactate 5 MG/ML SDV IVPUSH PRN (07:36)
--- NOTE | 2021-01-13 07:51 | PCM.PN ---
- General Info Date of Service: 01/13/21 Admission Dx/Problem (Free Text): Admission Diagnosis/Problem Admission Diagnosis/Problem Covid-19 Pneumonia Subjective Update: 80-year-old male with respiratory failure secondary to COVID-19 pneumonia. Patient continues to struggle with oxygen saturations. Again pulling mask off and dropping to 50's. refusing anything we offer. Functional Status: Reports: Pain Controlled - Patient Data Vitals - Most Recent: Last Vital Signs Temp 97 F 01/13/21 04:00 Pulse 74 01/13/21 04:00 Resp 22 H 01/13/21 04:00 BP 139/99 H 01/13/21 04:00 Pulse Ox 97 01/13/21 04:00 Weight - Most Recent: 198 lb 3.2 oz I&O - Last 24 Hours: Intake & Output 01/12/21 01/13/21 01/13/21 22:59 06:59 14:59 Intake Total 15 675 Output Total 480 720 Balance -465 -45 Lab Results Last 24 Hours: Laboratory Results - last 24 hr 01/12/21 01/12/21 01/12/21 Range/Units 08:42 08:48 08:48 WBC 9.72 H (4.23-9.07) K/mm3 RBC 5.66 (4.63-6.08) M/mm3 Hgb 16.2 D (13.7-17.5) gm/dl Hct 48.9 (40.1-51.0) % MCV 86.4 (79.0-92.2) fl MCH 28.6 (25.7-32.2) pg MCHC 33.1 (32.2-35.5) g/dl RDW Std Deviation 43.7 (35.1-43.9) fL Plt Count 176 (163-337) K/mm3 MPV 11.2 (9.4-12.3) fl Puncture Site ABG pH (7.35-7.45) ABG pCO2 (35.0-45.0) mmHg ABG pO2 (80.0-100.0) mmHg ABG HCO3 (22.0-26.0) meq/L ABG O2 Saturation (96.0-97.0) % ABG Base Excess (-2-2.0) Oracio Test O2 Delivery Device PEEP cmH20 Pressure Support cmH2O Sodium (136-145) mEq/L Potassium (3.5-5.1) mEq/L Chloride (98-107) mEq/L Carbon Dioxide (21-32) mEq/L Anion Gap (5-15) BUN (7-18) mg/dL Creatinine (0.7-1.3) mg/dL Est Cr Clr Drug Dosing mL/min Estimated GFR (MDRD) (>60) mL/min BUN/Creatinine Ratio (14-18) Glucose (70-99) mg/dL POC Glucose 187 H (70-99) mg/dL Calcium (8.5-10.1) mg/dL Total Bilirubin (0.2-1.0) mg/dL AST (15-37) U/L ALT (16-63) U/L Alkaline Phosphatase (46-116) U/L C-Reactive Protein 2.1 H* (<1.0) mg/dL Total Protein (6.4-8.2) g/dl Albumin (3.4-5.0) g/dl Globulin gm/dL Albumin/Globulin Ratio (1-2) 01/12/21 01/12/21 01/12/21 Range/Units 08:48 11:22 13:53 WBC (4.23-9.07) K/mm3 RBC (4.63-6.08) M/mm3 Hgb (13.7-17.5) gm/dl Hct (40.1-51.0) % MCV (79.0-92.2) fl MCH (25.7-32.2) pg MCHC (32.2-35.5) g/dl RDW Std Deviation (35.1-43.9) fL Plt Count (163-337) K/mm3 MPV (9.4-12.3) fl Puncture Site Lt radial ABG pH 7.40 (7.35-7.45) ABG pCO2 42.7 (35.0-45.0) mmHg ABG pO2 64.0 L (80.0-100.0) mmHg ABG HCO3 25.9 (22.0-26.0) meq/L ABG O2 Saturation 90.3 L (96.0-97.0) % ABG Base Excess 1.3 (-2-2.0) Oracio Test Positive O2 Delivery Device Bipap PEEP 16.0 cmH20 Pressure Support 22.0 cmH2O Sodium 148 H (136-145) mEq/L Potassium 3.0 L (3.5-5.1) mEq/L Chloride 110 H (98-107) mEq/L Carbon Dioxide 27 (21-32) mEq/L Anion Gap 14.0 (5-15) BUN 48 H (7-18) mg/dL Creatinine 1.2 (0.7-1.3) mg/dL Est Cr Clr Drug Dosing 45.14 mL/min Estimated GFR (MDRD) 58 (>60) mL/min BUN/Creatinine Ratio 40.0 H (14-18) Glucose 208 H (70-99) mg/dL POC Glucose 186 H (70-99) mg/dL Calcium 8.5 (8.5-10.1) mg/dL Total Bilirubin 0.6 (0.2-1.0) mg/dL AST 26 (15-37) U/L ALT 33 (16-63) U/L Alkaline Phosphatase 59 (46-116) U/L C-Reactive Protein (<1.0) mg/dL Total Protein 6.7 (6.4-8.2) g/dl Albumin 2.6 L (3.4-5.0) g/dl Globulin 4.1 gm/dL Albumin/Globulin Ratio 0.6 L (1-2) 01/12/21 01/12/21 Range/Units 16:28 21:18 WBC (4.23-9.07) K/mm3 RBC (4.63-6.08) M/mm3 Hgb (13.7-17.5) gm/dl Hct (40.1-51.0) % MCV (79.0-92.2) fl MCH (25.7-32.2) pg MCHC (32.2-35.5) g/dl RDW Std Deviation (35.1-43.9) fL Plt Count (163-337) K/mm3 MPV (9.4-12.3) fl Puncture Site ABG pH (7.35-7.45) ABG pCO2 (35.0-45.0) mmHg ABG pO2 (80.0-100.0) mmHg ABG HCO3 (22.0-26.0) meq/L ABG O2 Saturation (96.0-97.0) % ABG Base Excess (-2-2.0) Oracio Test O2 Delivery Device PEEP cmH20 Pressure Support cmH2O Sodium (136-145) mEq/L Potassium (3.5-5.1) mEq/L Chloride (98-107) mEq/L Carbon Dioxide (21-32) mEq/L Anion Gap (5-15) BUN (7-18) mg/dL Creatinine (0.7-1.3) mg/dL Est Cr Clr Drug Dosing mL/min Estimated GFR (MDRD) (>60) mL/min BUN/Creatinine Ratio (14-18) Glucose (70-99) mg/dL POC Glucose 157 H 194 H (70-99) mg/dL Calcium (8.5-10.1) mg/dL Total Bilirubin (0.2-1.0) mg/dL AST (15-37) U/L ALT (16-63) U/L Alkaline Phosphatase (46-116) U/L C-Reactive Protein (<1.0) mg/dL Total Protein (6.4-8.2) g/dl Albumin (3.4-5.0) g/dl Globulin gm/dL Albumin/Globulin Ratio (1-2) Med Orders - Current: Current Medications Albuterol/Ipratropium (Albuterol/Ipratropium 3.0-0.5 Mg/3 Ml Neb Soln) 3 ml NEB Q4H PRN PRN Reason: Shortness Of Breath/wheezing Last Admin: 01/12/21 12:45 Dose: 3 ml Documented by: Dexamethasone (Dexamethasone 4 Mg/Ml Sdv) 6 mg IV DAILY [facility] Stop: 01/16/21 11:01 Famotidine (Famotidine 20 Mg/2 Ml Sdv) 20 mg IVPUSH BEDTIME [facility] Last Admin: 01/12/21 21:34 Dose: 20 mg Documented by: Haloperidol Lactate (Haloperidol Lactate 5 Mg/Ml Sdv) 5 mg IVPUSH Q8H PRN PRN Reason: Anxiety Last Admin: 01/13/21 07:36 Dose: 5 mg Documented by: Heparin Sodium (Porcine) (Heparin Sodium 5,000 Units/Ml Vial) 7,500 units IVPUSH Q8H [facility] Last Admin: 01/13/21 00:35 Dose: 7,500 units Documented by: Hydralazine HCl (Hydralazine 20 Mg/Ml Sdv) 10 mg IVPUSH Q4H PRN PRN Reason: Hypertension Sodium Chloride (Normal Saline) 1,000 mls @ 50 mls/hr IV ASDIRECTED [facility] Last Admin: 01/12/21 14:42 Dose: 50 mls/hr Documented by: Insulin Glargine (Insulin Glarg,Human.Rec.Analog 100 Unit/Ml) 15 unit SUBCUT BID [facility] Last Admin: 01/12/21 21:34 Dose: 15 units Documented by: Insulin Human Lispro (Insulin Lispro 100 Unit/Ml 10 Ml Vial) 0 unit SUBCUT QIDACANDBED [facility]; Protocol Last Admin: 01/12/21 21:35 Dose: 2 units Documented by: Olanzapine (Olanzapine 10 Mg Vial) 10 mg IM BID PRN PRN Reason: Agitation Last Admin: 01/13/21 00:35 Dose: 10 mg Documented by: Ondansetron HCl (Ondansetron 4 Mg/2 Ml Sdv) 4 mg IV Q6H PRN PRN Reason: Nausea/Vomiting Sodium Chloride (Sodium Chloride 0.9% 10 Ml Syringe) 10 ml FLUSH ASDIRECTED PRN PRN Reason: Keep Vein Open Last Admin: 01/07/21 18:42 Dose: 10 ml Documented by: Discontinued Medications Acetaminophen (Acetaminophen 325 Mg Tab) 650 mg PO Q4H PRN PRN Reason: Pain (Mild 1-3)/fever Acetaminophen/Codeine Phosphate (Acetaminophen/Codeine 300-30 Mg Tab) 2 tab PO Q4H PRN PRN Reason: Cough Last Admin: 01/10/21 23:58 Dose: 2 tab Documented by: Aspirin (Aspirin 81 Mg Tab.Ec) 81 mg PO DAILY [facility] Last Admin: 01/12/21 09:08 Dose: Not Given Documented by: Atenolol (Atenolol 50 Mg Tab) 50 mg PO DAILY [facility] Last Admin: 01/12/21 09:09 Dose: Not Given Documented by: Benzonatate (Benzonatate 100 Mg Cap) 200 mg PO Q8H PRN PRN Reason: Cough Last Admin: 01/10/21 20:28 Dose: 200 mg Documented by: Dexamethasone (Dexamethasone 4 Mg Tab) 6 mg PO ONETIME ONE Stop: 01/07/21 18:27 Last Admin: 01/07/21 18:42 Dose: 6 mg Documented by: Dexamethasone (Dexamethasone 4 Mg Tab) 6 mg PO DAILY [facility] Stop: 01/16/21 09:01 Last Admin: 01/12/21 09:08 Dose: Not Given Documented by: Dexamethasone (Dexamethasone 4 Mg/Ml Sdv) 6 mg PO DAILY [facility] Stop: 01/16/21 11:01 Last Admin: 01/12/21 12:06 Dose: 6 mg Documented by: Enoxaparin Sodium (Enoxaparin 30 Mg/0.3 Ml Syringe) 30 mg SUBCUT DAILY [facility] Last Admin: 01/08/21 08:23 Dose: 30 mg Documented by: Enoxaparin Sodium (Enoxaparin 40 Mg/0.4 Ml Syringe) 40 mg SUBCUT DAILY [facility] Last Admin: 01/10/21 08:27 Dose: 40 mg Documented by: Furosemide (Furosemide 20 Mg/2 Ml Vial) 20 mg IVPUSH NOW ONE Stop: 01/09/21 16:26 Last Admin: 01/09/21 16:51 Dose: 20 mg Documented by: Guaifenesin (Guaifenesin 600 Mg Tab.Er) 600 mg PO BID [facility] Last Admin: 01/12/21 09:08 Dose: Not Given Documented by: Haloperidol Lactate (Haloperidol Lactate 5 Mg/Ml Sdv) 5 mg IVPUSH Q8H PRN PRN Reason: Agitation Sodium Chloride (Normal Saline) 1,000 mls @ 100 mls/hr IV ASDIRECTED [facility] Stop: 01/08/21 07:29 Last Admin: 01/07/21 22:48 Dose: 100 mls/hr Documented by: Remdesivir 200 mg/ Sodium (Chloride) 250 mls @ 250 mls/hr IV ONETIME ONE Stop: 01/08/21 10:59 Last Admin: 01/08/21 10:24 Dose: 250 mls/hr Documented by: Remdesivir 100 mg/ Sodium (Chloride) 100 mls @ 100 mls/hr IV Q24H [facility] Stop: 01/12/21 10:59 Last Admin: 01/12/21 09:01 Dose: 100 mls/hr Documented by: Potassium Chloride 10 meq/ (Premix) 100 mls @ 100 mls/hr IV Q1H [facility] Stop: 01/08/21 13:29 Last Admin: 01/08/21 13:57 Dose: 100 mls/hr Documented by: Sodium Chloride (Normal Saline) 1,000 mls @ 100 mls/hr IV ASDIRECTED [facility] Stop: 01/09/21 18:14 Last Admin: 01/09/21 10:25 Dose: 100 mls/hr Documented by: Tocilizumab 760 mg/ Sodium (Chloride) 100 mls @ 100 mls/hr IV ONETIME ONE Stop: 01/09/21 12:59 Last Admin: 01/09/21 11:39 Dose: 100 mls/hr Documented by: Potassium Chloride 10 meq/ (Premix) 100 mls @ 100 mls/hr IV Q1H [facility] Stop: 01/10/21 22:14 Last Admin: 01/10/21 21:33 Dose: Not Given Documented by: Insulin Glargine (Insulin Glarg,Human.Rec.Analog 100 Unit/Ml) 10 unit SUBCUT DAILY [facility] Last Admin: 01/10/21 08:30 Dose: 10 units Documented by: Insulin Glargine (Insulin Glarg,Human.Rec.Analog 100 Unit/Ml) 10 unit SUBCUT BID [facility] Last Admin: 01/10/21 20:48 Dose: 10 units Documented by: Insulin Human Lispro (Insulin Lispro 100 Unit/Ml 10 Ml Vial) 0 unit SUBCUT QIDACANDBED [facility]; Protocol Last Admin: 01/11/21 09:00 Dose: 4 units Documented by: Insulin Human Lispro (Insulin Lispro 100 Unit/Ml 10 Ml Vial) 0 unit SUBCUT QIDACANDBED [facility]; Protocol Lorazepam (Lorazepam 2 Mg/Ml Sdv) 1 mg IVPUSH ONETIME ONE Stop: 01/11/21 03:01 Last Admin: 01/11/21 03:07 Dose: 1 mg Documented by: Lorazepam (Lorazepam 2 Mg/Ml Sdv) 1 mg IVPUSH Q2H PRN PRN Reason: Anxiety Last Admin: 01/12/21 02:00 Dose: 1 mg Documented by: Potassium Chloride (Potassium Chloride 20 Meq Tab.Er) 20 meq PO ONETIME ONE Stop: 01/10/21 21:16 Last Admin: 01/10/21 21:32 Dose: 20 meq Documented by: Quetiapine Fumarate (Quetiapine 100 Mg Tab) 100 mg PO BEDTIME [facility] Last Admin: 01/11/21 20:28 Dose: 100 mg Documented by: Quetiapine Fumarate (Quetiapine 25 Mg Tab) 25 mg PO DAILY [facility] Last Admin: 01/12/21 09:08 Dose: Not Given Documented by: Tamsulosin HCl (Tamsulosin 0.4 Mg Cap.Er) 0.4 mg PO DAILY [facility] Last Admin: 01/12/21 09:08 Dose: Not Given Documented by: - Exam Quality Assessment: Supplemental Oxygen Urinary Catheter Total Time: 3Days 13Hours General: Other (non cooperative, confused, pushes us away. wants the bipap off. ) Neck: Supple Lungs: Decreased Breath Sounds, Other (course breath sounds on bipap) Back Exam: Normal Inspection Extremities: Normal Inspection, Normal Range of Motion, No Pedal Edema Skin: Warm Psy/Mental Status: Anxious, Agitated - Patient Data Lab Results Last 24 hrs: Laboratory Results - last 24 hr 01/12/21 01/12/21 01/12/21 Range/Units 08:42 08:48 08:48 WBC 9.72 H (4.23-9.07) K/mm3 RBC 5.66 (4.63-6.08) M/mm3 Hgb 16.2 D (13.7-17.5) gm/dl Hct 48.9 (40.1-51.0) % MCV 86.4 (79.0-92.2) fl MCH 28.6 (25.7-32.2) pg MCHC 33.1 (32.2-35.5) g/dl RDW Std Deviation 43.7 (35.1-43.9) fL Plt Count 176 (163-337) K/mm3 MPV 11.2 (9.4-12.3) fl Puncture Site ABG pH (7.35-7.45) ABG pCO2 (35.0-45.0) mmHg ABG pO2 (80.0-100.0) mmHg ABG HCO3 (22.0-26.0) meq/L ABG O2 Saturation (96.0-97.0) % ABG Base Excess (-2-2.0) Oracio Test O2 Delivery Device PEEP cmH20 Pressure Support cmH2O Sodium (136-145) mEq/L Potassium (3.5-5.1) mEq/L Chloride (98-107) mEq/L Carbon Dioxide (21-32) mEq/L Anion Gap (5-15) BUN (7-18) mg/dL Creatinine (0.7-1.3) mg/dL Est Cr Clr Drug Dosing mL/min Estimated GFR (MDRD) (>60) mL/min BUN/Creatinine Ratio (14-18) Glucose (70-99) mg/dL POC Glucose 187 H (70-99) mg/dL Calcium (8.5-10.1) mg/dL Total Bilirubin (0.2-1.0) mg/dL AST (15-37) U/L ALT (16-63) U/L Alkaline Phosphatase (46-116) U/L C-Reactive Protein 2.1 H* (<1.0) mg/dL Total Protein (6.4-8.2) g/dl Albumin (3.4-5.0) g/dl Globulin gm/dL Albumin/Globulin Ratio (1-2) 01/12/21 01/12/21 01/12/21 Range/Units 08:48 11:22 13:53 WBC (4.23-9.07) K/mm3 RBC (4.63-6.08) M/mm3 Hgb (13.7-17.5) gm/dl Hct (40.1-51.0) % MCV (79.0-92.2) fl MCH (25.7-32.2) pg MCHC (32.2-35.5) g/dl RDW Std Deviation (35.1-43.9) fL Plt Count (163-337) K/mm3 MPV (9.4-12.3) fl Puncture Site Lt radial ABG pH 7.40 (7.35-7.45) ABG pCO2 42.7 (35.0-45.0) mmHg ABG pO2 64.0 L (80.0-100.0) mmHg ABG HCO3 25.9 (22.0-26.0) meq/L ABG O2 Saturation 90.3 L (96.0-97.0) % ABG Base Excess 1.3 (-2-2.0) Oracio Test Positive O2 Delivery Device Bipap PEEP 16.0 cmH20 Pressure Support 22.0 cmH2O Sodium 148 H (136-145) mEq/L Potassium 3.0 L (3.5-5.1) mEq/L Chloride 110 H (98-107) mEq/L Carbon Dioxide 27 (21-32) mEq/L Anion Gap 14.0 (5-15) BUN 48 H (7-18) mg/dL Creatinine 1.2 (0.7-1.3) mg/dL Est Cr Clr Drug Dosing 45.14 mL/min Estimated GFR (MDRD) 58 (>60) mL/min BUN/Creatinine Ratio 40.0 H (14-18) Glucose 208 H (70-99) mg/dL POC Glucose 186 H (70-99) mg/dL Calcium 8.5 (8.5-10.1) mg/dL Total Bilirubin 0.6 (0.2-1.0) mg/dL AST 26 (15-37) U/L ALT 33 (16-63) U/L Alkaline Phosphatase 59 (46-116) U/L C-Reactive Protein (<1.0) mg/dL Total Protein 6.7 (6.4-8.2) g/dl Albumin 2.6 L (3.4-5.0) g/dl Globulin 4.1 gm/dL Albumin/Globulin Ratio 0.6 L (1-2) 01/12/21 01/12/21 Range/Units 16:28 21:18 WBC (4.23-9.07) K/mm3 RBC (4.63-6.08) M/mm3 Hgb (13.7-17.5) gm/dl Hct (40.1-51.0) % MCV (79.0-92.2) fl MCH (25.7-32.2) pg MCHC (32.2-35.5) g/dl RDW Std Deviation (35.1-43.9) fL Plt Count (163-337) K/mm3 MPV (9.4-12.3) fl Puncture Site ABG pH (7.35-7.45) ABG pCO2 (35.0-45.0) mmHg ABG pO2 (80.0-100.0) mmHg ABG HCO3 (22.0-26.0) meq/L ABG O2 Saturation (96.0-97.0) % ABG Base Excess (-2-2.0) Oracio Test O2 Delivery Device PEEP cmH20 Pressure Support cmH2O Sodium (136-145) mEq/L Potassium (3.5-5.1) mEq/L Chloride (98-107) mEq/L Carbon Dioxide (21-32) mEq/L Anion Gap (5-15) BUN (7-18) mg/dL Creatinine (0.7-1.3) mg/dL Est Cr Clr Drug Dosing mL/min Estimated GFR (MDRD) (>60) mL/min BUN/Creatinine Ratio (14-18) Glucose (70-99) mg/dL POC Glucose 157 H 194 H (70-99) mg/dL Calcium (8.5-10.1) mg/dL Total Bilirubin (0.2-1.0) mg/dL AST (15-37) U/L ALT (16-63) U/L Alkaline Phosphatase (46-116) U/L C-Reactive Protein (<1.0) mg/dL Total Protein (6.4-8.2) g/dl Albumin (3.4-5.0) g/dl Globulin gm/dL Albumin/Globulin Ratio (1-2) Result Diagrams: 01/12/21 08:48 01/12/21 08:48 Sepsis Event Note - Evaluation Sepsis Screening Result: Possible Sepsis Risk - Focused Exam Vital Signs: Vital Signs Temp Pulse Resp BP Pulse Ox 01/13/21 04:00 97 F 74 22 H 139/99 H 97 01/13/21 00:00 96.9 F 59 L 18 139/81 96 01/12/21 20:00 96.8 F L 78 20 170/86 H - Problem List Review Problem List Initiated/Reviewed/Updated: Yes - My Orders Last 24 Hours: My Active Orders 01/12/21 09:30 OLANZapine [ZyPREXA] 10 mg IM BID PRN hydrALAZINE [Apresoline] 10 mg IVPUSH Q4H PRN 01/12/21 11:50 Haloperidol Lactate [Haldol] 5 mg IVPUSH Q8H PRN 01/12/21 14:00 Sodium Chloride 0.9% [Normal Saline] 1,000 ml IV ASDIRECTED 01/13/21 07:38 Renew/Continue Urinary Catheter [OM.PC] Routine 01/14/21 07:00 CBC W/O DIFF,HEMOGRAM [HEME] MOTH@0700 01/18/21 07:00 CBC W/O DIFF,HEMOGRAM [HEME] MOTH@69901/21/21 07:00 CBC W/O DIFF,HEMOGRAM [HEME] MOTH@69901/25/21 07:00 CBC W/O DIFF,HEMOGRAM [HEME] MOTH@0701/28/21 07:00 CBC W/O DIFF,HEMOGRAM [HEME] MOTH@0702/01/21 07:00 CBC W/O DIFF,HEMOGRAM [HEME] MOTH@07 - Plan Plan:: 80-year-old male vaccinated with Pfizer vaccine presents in respiratory failure secondary to COVID-19 pneumonia COVID-19 pneumonia Respiratory failure with hypoxia * ICU * Currently on BiPAP * CRP decreased to 5.5. albumin 2.2, WBC 5.7 * Given 1 dose of Lasix 20 mg IV yesterday * Patient has overall very poor prognosis. * He request to be a full code. * Given dexamethasone, Rocephin, but remdesivir was held secondary to renal function in the emergency department * Restarted in the ICU with improvement in renal function * Chest x-ray shows bilateral infiltrates consistent with moderate Covid 19 pneumonia * EKG: Normal sinus rhythm, ventricular rate 77 bpm, left axis deviation. * BiPAP 18/16 at 90% FiO2 01/11 poor fitting BiPAP mask and will need to replace today. Echo this morning. Increased need for oxygen demand. Increased confusion. Concern for possible clotting due to D-dimer increased to 4.57. We have increased him to heparin 7500 3 times daily. We would like to get a CT chest but he is uncooperative and agitated. If he continues to desaturate we may need to assume there is a PE and start him on a heparin drip if he does not start to cooperate better. Have started him with Seroquel 20 5 AM, 100 every afternoon and we have also started him on Mucinex. Elevated CRp. continue in ICU. Bipap 88-92%, dex, rocephin, azith, Continue remdesivir, Respiratory therapy, Acapella, I-S, Albuterol/Atrovent nebs every 6 hours as needed, Albuterol every 2 hours as needed, Encourage proning 01/12/21 continued to have issues overnight with keeping bipap on, now resting and replaced. He is unable to swallow or follow commands. he had several doses of ativan overnight due to the severity of the agitation. We are given Zyprexa IM and removed all po for now and if orientated better we will add oral back. had Conversation with family and placement to NH due to worsening dementia at baseline. 01/13 long conversation with the daughter Connie. The family has decided on DNR status. They are stating that he told them that he did not want to be on life support. Additionally they have agreed on comfort care after they were able to do a Zoom call today and say their last goodbyes. Rule of them are now positive for Covid. I will speak with case management and social work for assistance with today. Acute renal failureimproved * Creatinine increased to 1.4 but GFR is greater than 30 allowing us to continue remdesivir * Most recent creatinine on file is from June 2019 and it was 1.1 with a GFR of greater than 60. * He may have some underlying diabetic nephropathy * BUN 58 01/11 similar to yesterday, following daily labs. Type 2 diabetes * Presenting blood sugar 202 * Blood sugars are poorly controlled in the 200s and as high as 377 likely worsened by dexamethasone * Hemoglobin A1c 6.6 * Home meds include glipizide and Metformin per chart notes * Started on Lantus 10 units twice daily 01/11 still has elevated blood glucose levels. Patient has a gap of 14.4. If this increases we will have to start him on a drip. I have started him on an increased dose of Lantus 15 units twice daily and continued sliding scale at medium. Anemia of chronic disease * Normochromic, normocytic anemia likely secondary to chronic disease * Hemoglobin 14, * Platelets 232 Hypertension * Home med list includes amlodipine, hydrochlorothiazide, losartan, And Cardura * Blood pressures well controlled 01/11 controlled BPH * Home meds include Cardura and Flomax * VTE prophylaxis with Lovenox * CODE STATUS: Full code. I explained to the patient he is a very high risk for intubation and mortality, but I am not sure how much he understands. * * 36 min
[2021-01-13] MEDS ORDERED: Metoprolol Tartrate 5 MG in Sodium Chloride 0.9% 50 ML IV ONE (08:09)
[2021-01-13] MEDS ORDERED: Metoprolol Tartrate 5 MG/5 ML SDV ONE (08:12)
[2021-01-13] MEDS ORDERED: Metoprolol Tartrate 5 MG/5 ML SDV IVPUSH ONE ×2 (08:17→08:30)
[2021-01-13] MEDS: Insulin Glarg,Human.Rec.Analog 100 Unit/ML SUBCUT SCH (08:28)
[2021-01-13] MEDS: Insulin Lispro 100 UNIT/ML 10 ML Vial SUBCUT SCH (08:28)
[2021-01-13] MEDS ORDERED: LORazepam 2 MG/ML SDV IVPUSH PRN (09:41)
[2021-01-13] MEDS ORDERED: LORazepam 2 MG/ML SDV ONE (09:42)
[2021-01-13] MEDS ORDERED: Morphine 2 MG/ML SYRINGE IVPUSH PRN (09:43)
--- NOTE | 2021-01-13 10:26 | PCM.DCSUM1 ---
Discharge Summary - Hospital Course Free Text/Narrative:: 80-year-old male vaccinated with Pfizer vaccine presents in respiratory failure secondary to COVID-19 pneumonia COVID-19 pneumonia Respiratory failure with hypoxia * ICU * Currently on BiPAP * CRP decreased to 5.5. albumin 2.2, WBC 5.7 * Given 1 dose of Lasix 20 mg IV yesterday * Patient has overall very poor prognosis. * He request to be a full code. * Given dexamethasone, Rocephin, but remdesivir was held secondary to renal function in the emergency department * Restarted in the ICU with improvement in renal function * Chest x-ray shows bilateral infiltrates consistent with moderate Covid 19 pneumonia * EKG: Normal sinus rhythm, ventricular rate 77 bpm, left axis deviation. * BiPAP 18/16 at 90% FiO2 01/11 poor fitting BiPAP mask and will need to replace today. Echo this morning. Increased need for oxygen demand. Increased confusion. Concern for possible clotting due to D-dimer increased to 4.57. We have increased him to heparin 7500 3 times daily. We would like to get a CT chest but he is uncooperative and agitated. If he continues to desaturate we may need to assume there is a PE and start him on a heparin drip if he does not start to cooperate better. Have started him with Seroquel 20 5 AM, 100 every afternoon and we have also started him on Mucinex. Elevated CRp. continue in ICU. Bipap 88-92%, dex, rocephin, azith, Continue remdesivir, Respiratory therapy, Acapella, I-S, Albuterol/Atrovent nebs every 6 hours as needed, Albuterol every 2 hours as needed, Encourage proning 01/12/21 continued to have issues overnight with keeping bipap on, now resting and replaced. He is unable to swallow or follow commands. he had several doses of ativan overnight due to the severity of the agitation. We are given Zyprexa IM and removed all po for now and if orientated better we will add oral back. had Conversation with family and placement to NH due to worsening dementia at baseline. 01/13 long conversation with the daughter Connie. The family has decided on DNR status. They are stating that he told them that he did not want to be on life support. Additionally they have agreed on comfort care after they were able to do a Zoom call today and say their last goodbyes. Rule of them are now positive for Covid. I will speak with case management and social work for assistance with today. PATIENT PASSED At 1016AM 01/13/21 Acute renal failureimproved * Creatinine increased to 1.4 but GFR is greater than 30 allowing us to continue remdesivir * Most recent creatinine on file is from June 2019 and it was 1.1 with a GFR of greater than 60. * He may have some underlying diabetic nephropathy * BUN 58 01/11 similar to yesterday, following daily labs. Type 2 diabetes * Presenting blood sugar 202 * Blood sugars are poorly controlled in the 200s and as high as 377 likely worsened by dexamethasone * Hemoglobin A1c 6.6 * Home meds include glipizide and Metformin per chart notes * Started on Lantus 10 units twice daily 01/11 still has elevated blood glucose levels. Patient has a gap of 14.4. If this increases we will have to start him on a drip. I have started him on an increased dose of Lantus 15 units twice daily and continued sliding scale at medium. Anemia of chronic disease * Normochromic, normocytic anemia likely secondary to chronic disease * Hemoglobin 14, * Platelets 232 Hypertension * Home med list includes amlodipine, hydrochlorothiazide, losartan, And Cardura * Blood pressures well controlled 01/11 controlled BPH * Home meds include Cardura and Flomax * VTE prophylaxis with Lovenox * CODE STATUS: Full code. I explained to the patient he is a very high risk for intubation and mortality, but I am not sure how much he understands. * * 36 min HPI Initial Comments: 80-year-old male who presented with Covid pneumonia who had a progressive decline since admission and today at 10:16 AM 01/13/2021 Brief History: 80-year-old male who presented with Covid pneumonia who had a progressive decline since admission and today at 10:16 AM 01/13/2021 Diagnosis: Stroke: No - Discharge Data Discharge Date: 01/13/21 Discharge Disposition: 20 Preliminary Cause of *Q: Respiratory Failure (Respiratory failure secondary to Covid pneumonia.) Condition: Good - Referral to Home Health Date of Face to Face Encounter: 01/13/21 Primary Care Physician: PCP None - Discharge Plan *PRESCRIPTION DRUG MONITORING PROGRAM REVIEWED*: Not Applicable *COPY OF PRESCRIPTION DRUG MONITORING REPORT IN PATIENT CLAIR: Not Applicable Home Medications: Home Meds Aspirin [Ecotrin EC] 81 mg PO DAILY 06/10/19 [History] Cinnamon Bark [Cinnamon] 1,000 mg PO DAILY 06/10/19 [History] Doxazosin Mesylate [Cardura XL] 8 mg PO DAILY 06/10/19 [History] Losartan [Cozaar] 100 mg PO DAILY 06/10/19 [History] Multivitamin with Minerals [Hair, Skin and Nails] 1 tab PO DAILY 06/10/19 [History] Oxybutynin 10 mg PO DAILY 06/10/19 [History] Potassium Chloride [K-Tab] 20 meq PO BID 06/10/19 [History] amLODIPine [Norvasc] 10 mg PO DAILY 06/10/19 [History] glyBURIDE [Glyburide] 10 mg PO BID 06/10/19 [History] hydroCHLOROthiazide [Hydrochlorothiazide] 37.5 mg PO DAILY 06/10/19 [History] metFORMIN [Glucophage] 1,000 mg PO BIDMEALS 06/10/19 [History] Tamsulosin HCl 0.4 mg PO DAILY 01/07/21 [History] atenoloL [Atenolol] 50 mg PO DAILY 01/07/21 [History] Patient Handouts: COVID-19 Frequently Asked Questions, COVID-19, 10 Things You Can Do to Manage Your COVID-19 Symptoms at Home - [facility] (10/23/2020) Forms: ED Department Discharge - Discharge Summary/Plan Comment DC Time >30 min.: Yes Total # of Minutes for Discharge Time: 40 - Patient Data Vitals - Most Recent: Last Vital Signs Temp 97 F 01/13/21 04:00 Pulse 125 H 01/13/21 08:18 Resp 22 H 01/13/21 04:00 BP 175/77 H 01/13/21 08:18 Pulse Ox 97 01/13/21 04:00 Weight - Most Recent: 198 lb 3.2 oz I&O - Last 24 hours: Intake & Output 01/12/21 01/13/21 01/13/21 22:59 06:59 14:59 Intake Total 15 675 240 Output Total 480 720 350 Balance -465 -45 -110 Lab Results - Last 24 hrs: Laboratory Results - last 24 hr 01/12/21 01/12/21 01/12/21 Range/Units 08:48 08:48 11:22 Puncture Site ABG pH (7.35-7.45) ABG pCO2 (35.0-45.0) mmHg ABG pO2 (80.0-100.0) mmHg ABG HCO3 (22.0-26.0) meq/L ABG O2 Saturation (96.0-97.0) % ABG Base Excess (-2-2.0) Oracio Test O2 Delivery Device PEEP cmH20 Pressure Support cmH2O Sodium 148 H (136-145) mEq/L Potassium 3.0 L (3.5-5.1) mEq/L Chloride 110 H (98-107) mEq/L Carbon Dioxide 27 (21-32) mEq/L Anion Gap 14.0 (5-15) BUN 48 H (7-18) mg/dL Creatinine 1.2 (0.7-1.3) mg/dL Est Cr Clr Drug Dosing 45.14 mL/min Estimated GFR (MDRD) 58 (>60) mL/min BUN/Creatinine Ratio 40.0 H (14-18) Glucose 208 H (70-99) mg/dL POC Glucose 186 H (70-99) mg/dL Calcium 8.5 (8.5-10.1) mg/dL Total Bilirubin 0.6 (0.2-1.0) mg/dL AST 26 (15-37) U/L ALT 33 (16-63) U/L Alkaline Phosphatase 59 (46-116) U/L C-Reactive Protein 2.1 H* (<1.0) mg/dL Total Protein 6.7 (6.4-8.2) g/dl Albumin 2.6 L (3.4-5.0) g/dl Globulin 4.1 gm/dL Albumin/Globulin Ratio 0.6 L (1-2) 01/12/21 01/12/21 01/12/21 Range/Units 13:53 16:28 21:18 Puncture Site Lt radial ABG pH 7.40 (7.35-7.45) ABG pCO2 42.7 (35.0-45.0) mmHg ABG pO2 64.0 L (80.0-100.0) mmHg ABG HCO3 25.9 (22.0-26.0) meq/L ABG O2 Saturation 90.3 L (96.0-97.0) % ABG Base Excess 1.3 (-2-2.0) Oracio Test Positive O2 Delivery Device Bipap PEEP 16.0 cmH20 Pressure Support 22.0 cmH2O Sodium (136-145) mEq/L Potassium (3.5-5.1) mEq/L Chloride (98-107) mEq/L Carbon Dioxide (21-32) mEq/L Anion Gap (5-15) BUN (7-18) mg/dL Creatinine (0.7-1.3) mg/dL Est Cr Clr Drug Dosing mL/min Estimated GFR (MDRD) (>60) mL/min BUN/Creatinine Ratio (14-18) Glucose (70-99) mg/dL POC Glucose 157 H 194 H (70-99) mg/dL Calcium (8.5-10.1) mg/dL Total Bilirubin (0.2-1.0) mg/dL AST (15-37) U/L ALT (16-63) U/L Alkaline Phosphatase (46-116) U/L C-Reactive Protein (<1.0) mg/dL Total Protein (6.4-8.2) g/dl Albumin (3.4-5.0) g/dl Globulin gm/dL Albumin/Globulin Ratio (1-2) Med Orders - Current: Current Medications Haloperidol Lactate (Haloperidol Lactate 5 Mg/Ml Sdv) 5 mg IVPUSH Q8H PRN PRN Reason: Anxiety Last Admin: 01/13/21 07:36 Dose: 5 mg Documented by: Lorazepam (Lorazepam 2 Mg/Ml Sdv) 1 mg IVPUSH Q1H PRN PRN Reason: Anxiety Morphine Sulfate (Morphine 2 Mg/Ml Syringe) 2 mg IVPUSH Q1H PRN PRN Reason: [employer] Olanzapine (Olanzapine 10 Mg Vial) 10 mg IM BID PRN PRN Reason: Agitation Last Admin: 01/13/21 00:35 Dose: 10 mg Documented by: Ondansetron HCl (Ondansetron 4 Mg/2 Ml Sdv) 4 mg IV Q6H PRN PRN Reason: Nausea/Vomiting Discontinued Medications Acetaminophen (Acetaminophen 325 Mg Tab) 650 mg PO Q4H PRN PRN Reason: Pain (Mild 1-3)/fever Acetaminophen/Codeine Phosphate (Acetaminophen/Codeine 300-30 Mg Tab) 2 tab PO Q4H PRN PRN Reason: Cough Last Admin: 01/10/21 23:58 Dose: 2 tab Documented by: Albuterol/Ipratropium (Albuterol/Ipratropium 3.0-0.5 Mg/3 Ml Neb Soln) 3 ml NEB Q4H PRN PRN Reason: Shortness Of Breath/wheezing Last Admin: 01/12/21 12:45 Dose: 3 ml Documented by: Aspirin (Aspirin 81 Mg Tab.Ec) 81 mg PO DAILY [facility] Last Admin: 01/12/21 09:08 Dose: Not Given Documented by: Atenolol (Atenolol 50 Mg Tab) 50 mg PO DAILY [facility] Last Admin: 01/12/21 09:09 Dose: Not Given Documented by: Benzonatate (Benzonatate 100 Mg Cap) 200 mg PO Q8H PRN PRN Reason: Cough Last Admin: 01/10/21 20:28 Dose: 200 mg Documented by: Dexamethasone (Dexamethasone 4 Mg Tab) 6 mg PO ONETIME ONE Stop: 01/07/21 18:27 Last Admin: 01/07/21 18:42 Dose: 6 mg Documented by: Dexamethasone (Dexamethasone 4 Mg Tab) 6 mg PO DAILY [facility] Stop: 01/16/21 09:01 Last Admin: 01/12/21 09:08 Dose: Not Given Documented by: Dexamethasone (Dexamethasone 4 Mg/Ml Sdv) 6 mg PO DAILY [facility] Stop: 01/16/21 11:01 Last Admin: 01/12/21 12:06 Dose: 6 mg Documented by: Dexamethasone (Dexamethasone 4 Mg/Ml Sdv) 6 mg IV DAILY [facility] Stop: 01/16/21 11:01 Last Admin: 01/13/21 08:18 Dose: 6 mg Documented by: Enoxaparin Sodium (Enoxaparin 30 Mg/0.3 Ml Syringe) 30 mg SUBCUT DAILY [facility] Last Admin: 01/08/21 08:23 Dose: 30 mg Documented by: Enoxaparin Sodium (Enoxaparin 40 Mg/0.4 Ml Syringe) 40 mg SUBCUT DAILY [facility] Last Admin: 01/10/21 08:27 Dose: 40 mg Documented by: Famotidine (Famotidine 20 Mg/2 Ml Sdv) 20 mg IVPUSH BEDTIME [facility] Last Admin: 01/12/21 21:34 Dose: 20 mg Documented by: Furosemide (Furosemide 20 Mg/2 Ml Vial) 20 mg IVPUSH NOW ONE Stop: 01/09/21 16:26 Last Admin: 01/09/21 16:51 Dose: 20 mg Documented by: Guaifenesin (Guaifenesin 600 Mg Tab.Er) 600 mg PO BID [facility] Last Admin: 01/12/21 09:08 Dose: Not Given Documented by: Haloperidol Lactate (Haloperidol Lactate 5 Mg/Ml Sdv) 5 mg IVPUSH Q8H PRN PRN Reason: Agitation Heparin Sodium (Porcine) (Heparin Sodium 5,000 Units/Ml Vial) 7,500 units IVPUSH Q8H [facility] Last Admin: 01/13/21 08:18 Dose: 7,500 units Documented by: Hydralazine HCl (Hydralazine 20 Mg/Ml Sdv) 10 mg IVPUSH Q4H PRN PRN Reason: Hypertension Sodium Chloride (Normal Saline) 1,000 mls @ 100 mls/hr IV ASDIRECTED [facility] Stop: 01/08/21 07:29 Last Admin: 01/07/21 22:48 Dose: 100 mls/hr Documented by: Remdesivir 200 mg/ Sodium (Chloride) 250 mls @ 250 mls/hr IV ONETIME ONE Stop: 01/08/21 10:59 Last Admin: 01/08/21 10:24 Dose: 250 mls/hr Documented by: Remdesivir 100 mg/ Sodium (Chloride) 100 mls @ 100 mls/hr IV Q24H [facility] Stop: 01/12/21 10:59 Last Admin: 01/12/21 09:01 Dose: 100 mls/hr Documented by: Potassium Chloride 10 meq/ (Premix) 100 mls @ 100 mls/hr IV Q1H [facility] Stop: 01/08/21 13:29 Last Admin: 01/08/21 13:57 Dose: 100 mls/hr Documented by: Sodium Chloride (Normal Saline) 1,000 mls @ 100 mls/hr IV ASDIRECTED [facility] Stop: 01/09/21 18:14 Last Admin: 01/09/21 10:25 Dose: 100 mls/hr Documented by: Tocilizumab 760 mg/ Sodium (Chloride) 100 mls @ 100 mls/hr IV ONETIME ONE Stop: 01/09/21 12:59 Last Admin: 01/09/21 11:39 Dose: 100 mls/hr Documented by: Potassium Chloride 10 meq/ (Premix) 100 mls @ 100 mls/hr IV Q1H [facility] Stop: 01/10/21 22:14 Last Admin: 01/10/21 21:33 Dose: Not Given Documented by: Sodium Chloride (Normal Saline) 1,000 mls @ 50 mls/hr IV ASDIRECTED [facility] Last Admin: 01/12/21 14:42 Dose: 50 mls/hr Documented by: Insulin Glargine (Insulin Glarg,Human.Rec.Analog 100 Unit/Ml) 10 unit SUBCUT DAILY [facility] Last Admin: 01/10/21 08:30 Dose: 10 units Documented by: Insulin Glargine (Insulin Glarg,Human.Rec.Analog 100 Unit/Ml) 10 unit SUBCUT BID [facility] Last Admin: 01/10/21 20:48 Dose: 10 units Documented by: Insulin Glargine (Insulin Glarg,Human.Rec.Analog 100 Unit/Ml) 15 unit SUBCUT BID [facility] Last Admin: 01/13/21 08:28 Dose: 15 units Documented by: Insulin Human Lispro (Insulin Lispro 100 Unit/Ml 10 Ml Vial) 0 unit SUBCUT QIDACANDBED [facility]; Protocol Last Admin: 01/11/21 09:00 Dose: 4 units Documented by: Insulin Human Lispro (Insulin Lispro 100 Unit/Ml 10 Ml Vial) 0 unit SUBCUT QIDACANDBED [facility]; Protocol Insulin Human Lispro (Insulin Lispro 100 Unit/Ml 10 Ml Vial) 0 unit SUBCUT QIDACANDBED [facility]; Protocol Last Admin: 01/13/21 08:28 Dose: 2 units Documented by: Lorazepam (Lorazepam 2 Mg/Ml Sdv) 1 mg IVPUSH ONETIME ONE Stop: 01/11/21 03:01 Last Admin: 01/11/21 03:07 Dose: 1 mg Documented by: Lorazepam (Lorazepam 2 Mg/Ml Sdv) 1 mg IVPUSH Q2H PRN PRN Reason: Anxiety Last Admin: 01/12/21 02:00 Dose: 1 mg Documented by: Lorazepam (Lorazepam 2 Mg/Ml Sdv) Confirm Administered Dose 2 mg .ROUTE .STK-MED ONE Stop: 01/13/21 09:43 Last Admin: 01/13/21 09:45 Dose: 1 mg Documented by: Metoprolol Tartrate (Metoprolol Tartrate 5 Mg/5 Ml Sdv) Confirm Administered Dose 5 mg .ROUTE .STK-MED ONE Stop: 01/13/21 08:13 Last Admin: 01/13/21 09:53 Dose: Not Given Documented by: Metoprolol Tartrate (Metoprolol Tartrate 5 Mg/5 Ml Sdv) 5 mg IVPUSH ONETIME ONE Stop: 01/13/21 08:31 Last Admin: 01/13/21 08:18 Dose: 5 mg Documented by: Metoprolol Tartrate (Metoprolol Tartrate 5 Mg/5 Ml Sdv) 5 mg IVPUSH ONETIME ONE Stop: 01/13/21 08:18 Last Admin: 01/13/21 09:53 Dose: Not Given Documented by: Potassium Chloride (Potassium Chloride 20 Meq Tab.Er) 20 meq PO ONETIME ONE Stop: 01/10/21 21:16 Last Admin: 01/10/21 21:32 Dose: 20 meq Documented by: Quetiapine Fumarate (Quetiapine 100 Mg Tab) 100 mg PO BEDTIME [facility] Last Admin: 01/11/21 20:28 Dose: 100 mg Documented by: Quetiapine Fumarate (Quetiapine 25 Mg Tab) 25 mg PO DAILY [facility] Last Admin: 01/12/21 09:08 Dose: Not Given Documented by: Sodium Chloride (Sodium Chloride 0.9% 10 Ml Syringe) 10 ml FLUSH ASDIRECTED PRN PRN Reason: Keep Vein Open Last Admin: 01/07/21 18:42 Dose: 10 ml Documented by: Tamsulosin HCl (Tamsulosin 0.4 Mg Cap.Er) 0.4 mg PO DAILY [facility] Last Admin: 01/12/21 09:08 Dose: Not Given Documented by:
== END 2021-01-13 11:37 | disposition expired | DRG 177 ==
LOC: JD.ED 17:23 → JD.MS 20:49 → JD.ICU 01-08 07:30
PROVIDERS: ADMIT Family Medicine; ATTEND Family Medicine
PROC: 5A0945A Assistance with Respiratory Ventilation, 24-96 Consecutive Hours, High Flow/Velocity Cannula (ICD-10-PCS; 2021-01-07)
PROC: 8E0ZXY6 Isolation (ICD-10-PCS; 2021-01-07)
PROC: XW033E5 Introduction of Remdesivir Anti-infective into Peripheral Vein, Percutaneous Approach, New Technology Group 5 (ICD-10-PCS; principal; 2021-01-08)
PROC: 3E0DX3Z Introduction of Anti-inflammatory into Mouth and Pharynx, External Approach (ICD-10-PCS; principal; 2021-01-08)
PROC: 3E0333Z Introduction of Anti-inflammatory into Peripheral Vein, Percutaneous Approach (ICD-10-PCS; principal; 2021-01-08)
PROC: 5A09557 Assistance with Respiratory Ventilation, Greater than 96 Consecutive Hours, Continuous Positive Airway Pressure (ICD-10-PCS; 2021-01-08)
DX: U07.1 COVID-19 (principal); J96.91 Respiratory failure, unspecified with hypoxia; J12.82 Pneumonia due to coronavirus disease 2019; N17.9 Acute kidney failure, unspecified; E87.3 Alkalosis; D63.8 Anemia in other chronic diseases classified elsewhere; I10 Essential (primary) hypertension; N40.0 Benign prostatic hyperplasia without lower urinary tract symptoms; Z51.5 Encounter for palliative care; F03.90 Unspecified dementia, unspecified severity, without behavioral disturbance, psychotic disturbance, mood disturbance, and anxiety; H91.90 Unspecified hearing loss, unspecified ear; Z66 Do not resuscitate; R45.1 Restlessness and agitation; H54.7 Unspecified visual loss; Z86.16 Personal history of COVID-19; Z86.19 Personal history of other infectious and parasitic diseases; Z98.49 Cataract extraction status, unspecified eye; Z90.89 Acquired absence of other organs; Z85.810 Personal history of malignant neoplasm of tongue; Z79.82 Long term (current) use of aspirin; Z79.84 Long term (current) use of oral hypoglycemic drugs; Z79.899 Other long term (current) drug therapy; Z90.49 Acquired absence of other specified parts of digestive tract; Z99.81 Dependence on supplemental oxygen; E11.21 Type 2 diabetes mellitus with diabetic nephropathy; E66.9 Obesity, unspecified; Z68.31 Body mass index [BMI] 31.0-31.9, adult
CPT/HCPCS: 36415; 36600; 71045; 80053; 82803; 83880; 84145; 84484; 85025; 85379; 86140; 93005; 94762; 99285; J8540; 51702; 80048; 82947; 83036; 83735; 84100; 85027; 93306; 94640; 94660; A9270-GY; J1100; J1630; J1644; J1650; J1815-GY; J1940; J2060; J3480; J3490; J7030; J7050; J7620-GY; M0249; Q0249